=== PATIENT | male | born 1955 | race Caucasian/White ===

== ENCOUNTER 2019-06-11 12:59 | Day surgery (SDC) | payer OTHER, SELFPAY ==
--- NOTE | 2019-06-11 | PATH_ITS ---
[facility] Accession Number: [id number] . 01 Material submitted: . PART A: colon - TRANSVERSE COLON POLYP PART B: rectum - RECTAL POLYPS X5 . 02 Diagnosis: A. Transverse Colon, Polyp: Tubular adenoma. . B. Rectum, Polyps: Fragments of hyperplastic polyp (five polyps removed). V 06/12/2019 1232 Local . 02 Electronically signed: . Moose Nunez MD, PhD, Pathologist NPI- [id number] . 01 Gross description: . Part A: TRANSVERSE COLON POLYP: Received in formalin is 1 fragment(s) of angel, soft tissue measuring 0.3 x 0.3 x 0.3 cm submitted entirely in 1 cassette(s) Part B: RECTAL POLYPS X5: Received in formalin are multiple fragment(s) of angel, soft tissue measuring 0.1 x 0.1 x 0.1 cm to 0.3 x 0.2 x 0.2 cm submitted entirely in 1 cassette(s) /[facility] 06/11/2019 2314 Local . 02 Pathologist provided ICD-10: D12.3, K62.1 . 02 CPT . 242873, [id number] Performed at: 01 [facility] [address] [facility], [place], [place] [id number] MD Lopez Briggs MD Phone: [phone] Performed at: 02 [facility] [address] [place], [place] [id number] MD Cecile Jha MD Phone: [phone]
--- NOTE | 2019-06-11 13:08 | PM.HP.1 ---
History of Present Illness History of Present Illness Date Patient Seen: 06/11/19 Chief complaint: [id number] Narrative: Follow-up sigmoid colon polyps Exam Narrative Exam Narrative: Oropharynx free of lesions Chest clear to auscultation percussion Cardiac exam reveals no S3 or murmur Assessment & Plan Assessment & Plan narrative: History of adenomatous colon polyps need for follow-up colonoscopy. Risks, benefits, alternatives have been explained.
--- NOTE | 2019-06-11 13:09 | PM.OP.ENDO ---
Operative Date/Time/Diagnoses Date of procedure: 06/11/19 Pre-op diagnosis: See indication and findings Procedure & Clinicians Study performed: Colonoscopy Same procedure as scheduled: Yes Indications: History of polyps Surgeon: Jeevan Maldonado Procedure Notes Procedure in detail: After informed consent was obtained the patient was placed in left lateral decubitus position. Video colonoscope was introduced the rectum and slowly advanced cecum. On slow withdrawal mucosa was carefully examined. Preparation was good. The scope was removed. The patient tolerated procedure well. Blood loss none Complications none Sedation Total sedation time 23 minutes Versed 7 mg fentanyl 150 micro g IV titration Findings 1. Five diminutive polyps in the rectum all Jumbo biopsy removed completely 2. Somewhat umbilicated 6-7 mm polyp in the transverse colon cold snared and removed completely 3. Scattered diverticulosis 4. Otherwise negative colonoscopy to cecum We'll be in touch regarding his pathology but will most likely need follow-up the in 5 years.
[2019-06-11 13:24] VITALS: PULSE 129; RESP 16; TEMP 37.3; O2SAT 98; BMI 23.6
[2019-06-11] MEDS: SODIUM CHLORIDE 0.9% 1,000 ML 21 ML IV (13:52)
[2019-06-11] MEDS: fentaNYL 250 MCG/5 ML INJ IV (14:23)
[2019-06-11] MEDS: MIDAZOLAM 5 MG/5 ML VIAL IV (14:23)
--- NOTE | 2019-06-11 14:36 | SUR.OPER ---
GLASSES IN LABELED BAG TO PACU WITH PATIENT
[2019-06-11 14:57] VITALS: BP 115/78; PULSE 76; RESP 13; TEMP 36.6; O2SAT 96
[2019-06-11 15:02] VITALS: BP 114/76; PULSE 75; RESP 12; O2SAT 97
[2019-06-11 15:07] VITALS: BP 110/71; PULSE 71; RESP 19; O2SAT 98
[2019-06-11 15:22] VITALS: BP 112/70; PULSE 70; RESP 16; O2SAT 99
[2019-06-11 15:34] VITALS: BP 119/75; PULSE 72; RESP 14; TEMP 36.9; O2SAT 98
--- NOTE | 2019-06-11 16:00 | SUR.PHASEII ---
1550 Patient voided in a bathroom after leaving the department, then asked for a work-release note; obtained from Dr. Maldonado.
== END 2019-06-11 15:58 | disposition home or self-care (01) ==
PROVIDERS: Visit Provider Internal Medicine Gastroenterology
PROC: 0DJD8ZZ Inspection of Lower Intestinal Tract, Via Natural or Artificial Opening Endoscopic (ICD-10-PCS; CPT 45378; principal; 2019-06-11 14:30)
DX: Z12.11 Encounter for screening for malignant neoplasm of colon (principal); Z86.010 Personal history of colon polyps; D12.3 Benign neoplasm of transverse colon; K62.1 Rectal polyp; K57.30 Diverticulosis of large intestine without perforation or abscess without bleeding
CPT/HCPCS: 45385; 45380; J2250; J3010

== ENCOUNTER 2020-09-08 08:07 | Emergency (ER) | payer OTHER, SELFPAY ==
[2020-09-08] VITALS (8 sets, daily range): BP systolic 127–168; BP diastolic 71–86; PULSE 56–68; RESP 17; TEMP 36.8; O2SAT 94–100; BMI 25.3
--- NOTE | 2020-09-08 08:37 | ED.NAVMDI ---
HPI - Nausea/Vomiting/Diarrhea General Chief complaint: Upper Respiratory Symptoms Stated complaint: J&J vaccine 08/25/20. Nausea/phlem/stomach distended Time Seen by Provider: 09/08/20 08:24 Source: patient Mode of arrival: Ambulatory History of Present Illness HPI Narrative: Patient here for nausea and vomiting and abdominal discomfort for the past 12 days. Had Jony Jony COVID vaccine on the 7th. Next day had symptoms. No chest pain. No headache. Had dry cough. Chills no fever. Nonbloody emesis. Decreased bowel movements. Decreased urine output. No appetite. MD complaint: nausea, vomiting and abdominal pain Related Data Previous Rx's Medication Instructions Recorded ondansetron 4 mg PO Q8H PRN #10 tab 09/08/20 Allergies Allergy/AdvReac Type Severity Reaction Status Date / Time amoxicillin AdvReac Mild Verified 09/09/20 15:56 Opioids - Morphine Analogues AdvReac Mild Vomiting Verified 09/09/20 15:56 narcoticss AdvReac Mild Vomiting Uncoded 06/11/19 13:35 Review of Systems Review of Systems Narrative: GENERAL: Denies chills, fatigue, malaise, fever, sweats. HEENT: Denies sinus pain, ear pain, sore throat RESPIRATORY: Denies dyspnea, cough CARDIOVASCULAR: Denies chest pain, palpitations GASTROINTESTINAL: Complain nausea, vomiting, abdominal pain : Denies dysuria, frequency, hematuria, complains decreased urination MUSCULOSKELETAL: denies muscle or bony pain SKIN: Denies rash, skin lesions NEUROLOGIC: Denies weakness, numbness ROS Unobtainable: All systems reviewed & are unremarkable except as noted in HPI and below Patient History Social History household members: spouse Smoking Status: Current every day smoker alcohol intake: current Smoking Status: Current every day smoker alcohol intake frequency: holidays/special occasions only Substance Use Type: does not use Exam Narrative Exam Narrative: GENERAL: in no distress, not toxic not dyspneic HEAD: Normocephalic. EYES: Pupils equal round No scleral icterus. No injection no discharge ENT: Mucous membranes moist. Slightly dry lips NECK: Trachea midline. CARDIOVASCULAR: Regular rate and rhythm without murmurs RESPIRATORY: Clear to auscultation. Breath sounds equal bilaterally. No wheezes, rales, or rhonchi. GASTROINTESTINAL: Abdomen soft, non-tender EXTREMITIES: No gross deformities. BACK: No flank tenderness. NEURO: AOx4. SKIN: Warm and dry PSYCH: Not anxious, is cooperative Initial Vital Signs Initial Vital Signs: Vital Signs Pulse Rate 67 09/08/20 08:19 Pulse Oximetry 100 09/08/20 08:19 Course Course Course Narrative: No new issues during course of stay. Orders Ordered: Discontinued Medications Sodium Chloride (Normal Saline 0.9%) 1,000 mls @ 1,000 mls/hr IV BOLUS ONE Stop: 09/08/20 09:34 Last Infusion: 09/08/20 09:56 Dose: 0 mls/hr Documented by: Admin: 09/08/20 08:52 Dose: 1,000 mls/hr Documented by: CAS Reevaluation(s) Reevaluation #1: No nausea vomiting or abdominal pain. Patient able to urinate here. Symptoms improved. Patient and agree with treatment plan and review of results. Time: 10:48 Vital Signs Vital signs: Vital Signs - 8 hr 09/08/20 08:19 09/08/20 08:20 09/08/20 08:30 Temperature 98.3 F Pulse Rate 67 66 68 Respiratory Rate 17 Blood Pressure 168/86 H Pulse Oximetry 100 100 100 09/08/20 09:00 09/08/20 09:30 09/08/20 10:01 Temperature Pulse Rate 64 65 67 Respiratory Rate 17 Blood Pressure 148/77 H Pulse Oximetry 100 100 97 09/08/20 10:02 09/08/20 10:30 Temperature Pulse Rate 60 56 L Respiratory Rate Blood Pressure 149/71 H 127/74 Pulse Oximetry 94 98 MDM - Nausea/Vomiting/Diarrhea Differential Diagnosis Differential diagnosis: Likely gastroenteritis, dehydration and other (Bowel obstruction/colitis/gastritis) Lab Data Attestation: I reviewed the patient's lab results. Result diagrams: 09/08/20 08:30 09/08/20 08:30 Labs: Lab Results 09/08/20 09/08/20 09/08/20 Range/Units 08:30 08:30 08:30 WBC 11.9 H (4.5-11.0) X10^3/uL RBC 4.95 (4.5-5.9) X10^6/uL Hgb 15.4 (13.5-17.5) g/dL Hct 45.0 (41-53) % MCV 91.0 (80-100) fL MCH 31.2 (26-34) PG MCHC 34.2 (30-36) % RDW 14.1 (11.6-14.8) % Plt Count 202 (150-400) X10^3/uL Neut % (Auto) 73.0 (50-75) % Lymph % (Auto) 16.9 L (25-40) % [place] % (Auto) 7.6 (3-14) % Eos % (Auto) 1.6 L (2-4) % Baso % (Auto) 0.9 (0-2) % Neut # (Auto) 8700 H (6220-8404) /uL Lymph # (Auto) 2000 (9914-8022) /uL [place] # (Auto) 900 (0-900) /uL Eos # (Auto) 200 (0-450) /uL Baso # (Auto) 100 (0-100) /uL Sodium 138 (137-145) mmol/L Potassium 3.9 (3.4-5.1) mmol/L Chloride 104 (98-107) mmol/L Carbon Dioxide 29 (22-32) mmol/L BUN 13 (9-20) mg/dL Creatinine 0.74 (0.66-1.25) mg/dL Estimated GFR > 60.0 (>60) mL/min BUN/Creatinine Ratio 17.6 (6-22) Glucose 92 (80-110) mg/dL Calcium 9.2 (8.4-10.2) mg/dL Total Bilirubin 0.6 (0.2-1.3) mg/dL AST 28 (17-59) IU/L ALT 22 (<50) IU/L Alkaline Phosphatase 103 (38-126) U/L Total Creatine Kinase 44 L (55-170) U/L CK-MB (CK-2) TNP CK-MB (CK-2) Rel Index TNP Troponin I < 0.012 (0.01-0.034) ng/mL Total Protein 6.8 (6.3-8.2) g/dL Albumin 3.6 (3.5-5.0) g/dL Globulin 3.2 (1.7-4.1) g/dL Albumin/Globulin Ratio 1.1 (1.0-2.8) Lipase 39 (23-300) U/L Urine RBC (0-5/HPF) Urine WBC (0-5/HPF) Urine Bacteria (None) Ur Culture Indicated? SARS-CoV-2 (PCR) (Negative) 09/08/20 09/08/20 Range/Units 09:01 10:00 WBC (4.5-11.0) X10^3/uL RBC (4.5-5.9) X10^6/uL Hgb (13.5-17.5) g/dL Hct (41-53) % MCV (80-100) fL MCH (26-34) PG MCHC (30-36) % RDW (11.6-14.8) % Plt Count (150-400) X10^3/uL Neut % (Auto) (50-75) % Lymph % (Auto) (25-40) % [place] % (Auto) (3-14) % Eos % (Auto) (2-4) % Baso % (Auto) (0-2) % Neut # (Auto) (4851-5503) /uL Lymph # (Auto) (7721-4464) /uL [place] # (Auto) (0-900) /uL Eos # (Auto) (0-450) /uL Baso # (Auto) (0-100) /uL Sodium (137-145) mmol/L Potassium (3.4-5.1) mmol/L Chloride (98-107) mmol/L Carbon Dioxide (22-32) mmol/L BUN (9-20) mg/dL Creatinine (0.66-1.25) mg/dL Estimated GFR (>60) mL/min BUN/Creatinine Ratio (6-22) Glucose (80-110) mg/dL Calcium (8.4-10.2) mg/dL Total Bilirubin (0.2-1.3) mg/dL AST (17-59) IU/L ALT (<50) IU/L Alkaline Phosphatase (38-126) U/L Total Creatine Kinase (55-170) U/L CK-MB (CK-2) CK-MB (CK-2) Rel Index Troponin I (0.01-0.034) ng/mL Total Protein (6.3-8.2) g/dL Albumin (3.5-5.0) g/dL Globulin (1.7-4.1) g/dL Albumin/Globulin Ratio (1.0-2.8) Lipase (23-300) U/L Urine RBC None seen (0-5/HPF) Urine WBC 1-5/hpf (0-5/HPF) Urine Bacteria Few (2-10) H (None) Ur Culture Indicated? Specimen cultured SARS-CoV-2 (PCR) Negative (Negative) Urine Dip Bedside Urine Glucose Negative Bedside Urine Bilirubin - Negative Bedside Urine Ketone - Negative Urine Specific [place] 1.01 Bedside Urine Occult Blood - Negative Bedside Urine pH 8.0 Bedside Urine Protein - Negative Bedside Urine Urobilinogen - Negative Bedside Urine Nitrite - Negative Bedside Urine Leukocytes + [address] scan - abdomen/pelvis: Radiologist's Impression: [address] [place] [address] [id number] Scan ReportSigned Patient: Shay Ayala DMR#: [id number]: 8Acct:[id number]/Sex: 64 / MDate of Service: 09/08/20Loc: EDAccession Number: [id number] Procedure: CT abdomen pelvis w con Ordering Provider: Naveen Johnson MD PROCEDURE: CT ABDOMEN PELVIS W CON INDICATIONS: iv contrast only/abd pain TECHNIQUE: After the administration of intravenous contrast, 5 mm thick sections acquired from the diaphragm to the symphysis. 5 mm coronal and sagittal reformats were acquired. For radiation dose reduction, the following was used: automated exposure control, adjustment of mA and/or kV according to patient size. COMPARISON: None. FINDINGS: Image quality: Excellent. ABDOMEN: Lung bases: Lung bases are clear. Heart size is normal. Solid organs: Liver is normal in size and enhancement. Gallbladder is surgically absent. Biliary system is non dilated. Pancreas enhances normally. Spleen is normal in size and enhancement. No adrenal nodules. Kidneys demonstrate normal size and enhancement, without hydronephrosis. Peritoneum and bowel: Bowel loops demonstrate normal wall thickness and caliber. No free fluid or air. Nodes and vessels: No retroperitoneal or mesenteric adenopathy by size criteria. Aorta and inferior vena cava are normal in size. Incidental note is made of a retroaortic left renal vein. Mild aortic and bilateral iliac plaque. Miscellaneous: No ventral hernias. PELVIS: Genitourinary: Bladder wall is mildly thickened. Significant prostate enlargement. There is a large bilobed mass resulting in significant indentation on the base of the bladder. This can either represent extrinsic compression by the prostate, or an intrinsic base of bladder mass. Miscellaneous: Bilateral fat containing inguinal hernias. Bones: No suspicious bony lesions. No vertebral body compression fractures. IMPRESSION: 1. No evidence of acute abdominal process. 2. Enlarged prostate. 3. Large filling defect in the base of the bladder, possibly extrinsic compression from the prostate versus intrinsic bladder mass. Recommend nonemergent urological consultation. Dictated by: Cuco Danielle M.D. on 09/08/2020 at 9:52 Approved by: Cuco Danielle M.D. on 09/08/2020 at 9:59 ECG Data Attestation: I personally reviewed and interpreted this ECG as follows: Interpretation: Sinus rhythm. Rate 62. No ST elevation or depression. MDM Narrative Medical decision making narrative: Appropriate discharge home. Symptoms controlled here. No pain. No vomiting. Symptoms ongoing for 13 days. Could be side effect from COVID vaccine. Reviewed results with patient and and agree with discharge and follow-up with urology and primary care. Prescription for Zofran provided. Not toxic. Patient is a smoker. He has had cystoscopy of the bladder in the past, 2 years ago. He does not recall where. Will provide urology services for follow-up. Discharge Plan Departure Patient Disposition: Home Clinical Impression: Nausea & vomiting Abdominal pain Qualifiers: Abdominal location: unspecified location Qualified Code(s): R10.9 - Unspecified abdominal pain Instructions: DI for Abdominal Pain-Adult, DI for Nausea -- Adult Activity Restrictions/Additional Instructions: See family doctor this week for recheck. See your urologist or call provided urology office today at [phone]. Stop smoking. Keep well hydrated. Return if worse or for any questions or concerns. Prescriptions have been sent to [facility] in [place]. Prescriptions: New ondansetron 4 mg tablet,disintegrating 4 mg PO Q8H PRN (Reason: nausea and vomiting) Qty: 10 RF: 0 Referrals: Cecile Beach MD [Primary Care Provider] - Stand Alone Forms: Work Release Note
[2020-09-08 08:41] LABS: Add Manual Diff / Slide Review NO; Basophils Absolute Auto 100 /uL (0-100); Basophils Percent Auto 0.9 % (0-2); Eosinophils Absolute Auto 200 /uL (0-450); Eosinophils Percent Auto 1.6 % (2-4); Hemoglobin 15.4 g/dL (13.5-17.5); Lymphocytes Absolute Auto 2000 /uL (1100-4500); Lymphocytes Percent Auto 16.9 % (25-40); Mean Corpuscular HGB Conc 34.2 % (30-36); Mean Corpuscular Hemoglobin 31.2 PG (26-34); Monocytes Absolute Auto 900 /uL (0-900); Monocytes Percent Auto 7.6 % (3-14); Neutrophils Absolute Auto 8700 /uL (1500-7000); Platelet Count 202 X10^3/uL (150-400); Red Blood Cell Count 4.95 X10^6/uL (4.5-5.9); Red Cell Distribution Width 14.1 % (11.6-14.8); White Blood Cell Count 11.9 X10^3/uL (4.5-11.0)
[2020-09-08] MEDS: SODIUM CHLORIDE 0.9% 1,000 ML 1000 ML IV (08:52)
[2020-09-08 08:53] LABS: Alanine Aminotransferase 22 IU/L (<50); Albumin 3.6 g/dL (3.5-5.0); Albumin Globulin Ratio 1.1 (1.0-2.8); Alkaline Phosphatase 103 U/L (38-126); Aspartate Aminotransferase 28 IU/L (17-59); BUN Creatinine Ratio 17.6 (6-22); Bilirubin Total 0.6 mg/dL (0.2-1.3); Blood Urea Nitrogen 13 mg/dL (9-20); Calcium 9.2 mg/dL (8.4-10.2); Carbon Dioxide 29 mmol/L (22-32); Chloride 104 mmol/L (98-107); Creatine Kinase 44 U/L (55-170); Estimated Glomerular Filt Rate > 60.0 mL/min (>60); Globulin 3.2 g/dL (1.7-4.1); Glucose 92 mg/dL (80-110); HEMOLYSIS 16 (0-50); Lipase 39 U/L (23-300); Potassium 3.9 mmol/L (3.4-5.1); Sodium 138 mmol/L (137-145); Total Protein 6.8 g/dL (6.3-8.2)
[2020-09-08 09:05] LABS: Troponin I < 0.012 ng/mL (0.01-0.034)
--- NOTE | 2020-09-08 09:05 | DI.CT.S_ITS ---
PROCEDURE: CT ABDOMEN PELVIS W CON INDICATIONS: iv contrast only/abd pain TECHNIQUE: After the administration of intravenous contrast, 5 mm thick sections acquired from the diaphragm to the symphysis. 5 mm coronal and sagittal reformats were acquired. For radiation dose reduction, the following was used: automated exposure control, adjustment of mA and/or kV according to patient size. COMPARISON: None. FINDINGS: Image quality: Excellent. ABDOMEN: Lung bases: Lung bases are clear. Heart size is normal. Solid organs: Liver is normal in size and enhancement. Gallbladder is surgically absent. Biliary system is non dilated. Pancreas enhances normally. Spleen is normal in size and enhancement. No adrenal nodules. Kidneys demonstrate normal size and enhancement, without hydronephrosis. Peritoneum and bowel: Bowel loops demonstrate normal wall thickness and caliber. No free fluid or air. Nodes and vessels: No retroperitoneal or mesenteric adenopathy by size criteria. Aorta and inferior vena cava are normal in size. Incidental note is made of a retroaortic left renal vein. Mild aortic and bilateral iliac plaque. Miscellaneous: No ventral hernias. PELVIS: Genitourinary: Bladder wall is mildly thickened. Significant prostate enlargement. There is a large bilobed mass resulting in significant indentation on the base of the bladder. This can either represent extrinsic compression by the prostate, or an intrinsic base of bladder mass. Miscellaneous: Bilateral fat containing inguinal hernias. Bones: No suspicious bony lesions. No vertebral body compression fractures. IMPRESSION: 1. No evidence of acute abdominal process. 2. Enlarged prostate. 3. Large filling defect in the base of the bladder, possibly extrinsic compression from the prostate versus intrinsic bladder mass. Recommend nonemergent urological consultation. Dictated by: Cuco Danielle M.D. on 09/08/2020 at 9:52 Approved by: Cuco Danielle M.D. on 09/08/2020 at 9:59
[2020-09-08 09:26] LABS: COVID19 - ADMIT (NP swab/PCR) Negative (Negative)
[2020-09-08 10:11] LABS: RBC Urine None Seen (0-5/HPF)
[2020-09-08 10:22] LABS: Bacteria Urine Few (2-10); Culture Indicated Urine Specimen Cultured; WBC Urine 1-5/HPF (0-5/HPF)
== END 2020-09-08 11:11 | disposition home or self-care (01) ==
PROVIDERS: Emergency Provider Emergency Medicine
DX: R10.9 Unspecified abdominal pain (principal); R11.2 Nausea with vomiting, unspecified; Z20.822 Contact with and (suspected) exposure to COVID-19
CPT/HCPCS: 36415; 74177; 80053; 81003; 81015; 82550; 83690; 84484; 85025; 87086; 87635; 93005; 93010; 96360; 99284; C9803; Q9967

== ENCOUNTER 2020-09-09 15:32 | Emergency (ER) | payer OTHER, SELFPAY ==
[2020-09-09 15:50] VITALS: BP 125/73; PULSE 86; RESP 14; TEMP 36.8; O2SAT 98; BMI 25.3
--- NOTE | 2020-09-09 17:51 | ED.RECABL ---
HPI - Recheck/Abnormal Lab/Rx General Chief Complaint: Recheck/Abnormal Lab/Rx Stated Complaint: nausea and vomiting, thinks its the meds Time Seen by Provider: 09/09/20 16:15 Source: patient Mode of arrival: Ambulatory Limitations: no limitations History of Present Illness HPI narrative: This is a 64-year-old male comes emergency department with nausea and vomiting status pose Jony and Jony COVID vaccine. Patient was seen yesterday by Dr. Johnson. Patient did have a evaluation including labs, CT imaging and was given fluids in the department. Patient also has had intractable hiccups. Patient has a prior history of intractable hiccups which lasted much longer. He states he was ultimately improved with over count of the medication which was recommended by his physician but he cannot recall what it was. He has not had any fevers or chills. Still has nausea he has had some vomiting. He has not taken any Zofran which was prescribed by the emergency room physician yesterday since this morning. Patient has not started any of the Protonix that he was prescribed. Patient states his symptoms are not worsening but have not resolved. He denies any new or evolving symptoms. Patient denies any other regular medications. He denies any medical issues. Discussed with patient he defers any additional labs or imaging or fluids today but we did discuss he should return if he is having any worsening symptoms. He is also accompanied by his . Related Data Previous Rx's Medication Instructions Recorded ondansetron 4 mg PO Q8H PRN #10 tab 09/08/20 Allergies Allergy/AdvReac Type Severity Reaction Status Date / Time amoxicillin AdvReac Mild Verified 09/09/20 15:56 Opioids - Morphine Analogues AdvReac Mild Vomiting Verified 09/09/20 15:56 narcoticss AdvReac Mild Vomiting Uncoded 06/11/19 13:35 Review of Systems Review of Systems ROS Unobtainable: All systems reviewed & are unremarkable except as noted in HPI and below Patient History Social History household members: spouse Smoking Status: Current every day smoker alcohol intake: current Smoking Status: Current every day smoker alcohol intake frequency: holidays/special occasions only Substance Use Type: does not use Exam Narrative Exam Narrative: GENERAL: Alert and oriented x three, well-nourished male in mild distress. HEENT: Head normocephalic, atraumatic, EOMI, pupils reactive, face symmetric, moist mucous membranes NECK: Supple, full range of motion CARDIOVASCULAR: Regular rate and rhythm without murmurs, rubs or gallops. RESPIRATORY: Breath sounds equal bilaterally, no wheezes rales or rhonchi. ABDOMEN: Soft, nontender. Normoactive bowel sounds all 4 quadrants. No guarding or rebound, rigidity, no mass. Patient has active hiccups while in the room throughout exam. : No CVA tenderness EXTREMITIES: Normal range of motion, no clubbing or edema. Neurovascularly intact NEUROLOGICAL: Cranial nerves II through XII grossly intact. Moving all extremities SKIN: Warm, dry, no petechiae, no rashes or lesions. Initial Vital Signs Initial Vital Signs: Vital Signs Temperature 98.3 F 09/09/20 15:50 Pulse Rate 86 09/09/20 15:50 Respiratory Rate 14 09/09/20 15:50 Blood Pressure 125/73 09/09/20 15:50 Pulse Oximetry 98 09/09/20 15:50 Course Vital Signs Vital signs: Vital Signs - 8 hr 09/09/20 15:50 09/09/20 18:14 Temperature 98.3 F Pulse Rate 86 70 Respiratory Rate 14 14 Blood Pressure 125/73 139/78 Pulse Oximetry 98 98 MDM - Recheck/Abnormal Lab/Rx MDM Narrative Medical decision making narrative: Patient states he just had some questions about his medications. He did not have an additional option to call or ask questions with a different provider. Questions were answered entirety with the patient. We did discuss possibly repeating labs her lab work as patient feels like he has continued to have issues hydrating but he defers and will try his medications that were prescribed yesterday. He states he has had intractable had cups in the past which ultimately resolved after some oral medications [id number] but he does recall the name. We discussed some possible options and patient was encouraged to return if he is feeling any worse. Discharge Plan Departure Patient Disposition: Home Clinical Impression: Nausea & vomiting Instructions: DI for Hiccups Activity Restrictions/Additional Instructions: Follow up with your physician if you are not having any improvement. If you are continuing to worsening please return to the ER. You may take Zofran 1 tablet every 6 hours as needed. Also take your Protonix which was prescribed yesterday. Please return for fevers, worsening chest pain, abdominal pain, shortness of breath, persistent vomiting, inability to tolerate oral liquids or food black or bloody stools new or concerning symptoms. Prescriptions: No Action ondansetron 4 mg tablet,disintegrating 4 mg PO Q8H PRN (Reason: nausea and vomiting) Qty: 10 RF: 0 Referrals: Cecile Beach MD [Primary Care Provider] -
[2020-09-09 18:14] VITALS: BP 139/78; PULSE 70; RESP 14; O2SAT 98
== END 2020-09-09 18:16 | disposition home or self-care (01) ==
PROVIDERS: Emergency Provider Emergency Medicine
DX: R11.2 Nausea with vomiting, unspecified (principal)
CPT/HCPCS: 99281

== ENCOUNTER 2020-09-10 18:49 | Observation (INO) | payer OTHER, SELFPAY ==
[2020-09-10] VITALS (13 sets, daily range): BP systolic 126–169; BP diastolic 65–112; PULSE 68–86; RESP 12–30; TEMP 37.1; O2SAT 93–99; BMI 25.3
--- NOTE | 2020-09-10 19:44 | DI.RAD.S_ITS ---
PROCEDURE: XR ACUTE ABDOMEN SERIES INDICATIONS: chest pain, N/V, no BM TECHNIQUE: One view chest and two views of the abdomen were acquired. COMPARISON: None. FINDINGS: Surgical changes and devices: Right upper quadrant surgical clips. Chest: Lungs are clear. Heart size is normal. No pleural effusions. No pneumoperitoneum. Abdomen: Moderate stool Bones: No suspicious bony lesions. IMPRESSION: No specific evidence of bowel obstruction seen at this time although if the patient's symptoms do not improve, continued surveillance with abdominal series radiographs could be performed. Moderate stool. Dictated by: Ata Gonzalez M.D. on 09/10/2020 at 21:15 Approved by: Ata Gonzalez M.D. on 09/10/2020 at 21:16
--- NOTE | 2020-09-10 19:44 | ED_ITS ---
HPI - Abdominal Pain General Chief Complaint: Abdominal Pain Stated Complaint: chest pains, vomiting, nausea, feels weak Time Seen by Provider: 09/10/20 18:58 Source: patient and family Mode of arrival: Ambulatory Limitations: no limitations History of Present Illness HPI narrative: 64-year-old male Daily smoker presents with significant other and a chief complaint of epigastric pain and persistent nausea and vomiting along with hiccups for past few weeks. This is his 3rd visit and he continues to not only be symptomatic but actually feel worse. He is had very thorough evaluations including unremarkable labs and imaging including a CT scan. He states that his symptoms have been like this ever since his COVID shot on August 25. He denies any recent travel, exposure bad foods, other ill persons or antibiotics. He is fatigued in becoming a bit weak. He has had no fever or chills. He denies any alcohol history. MD complaint: abdominal pain Onset (ago): day(s) Pain Consistency: constant Location: epigastric Severity: moderate Quality: cramping and aching Radiation: none Relieving factors: nothing Exacerbating factors: nothing Associated symptoms: nausea, vomiting and other (No bowel movement in 2 weeks, decreased appetite) Related Data Previous Rx's Medication Instructions Recorded ondansetron 4 mg PO Q8H PRN #10 tab 09/08/20 Allergies Allergy/AdvReac Type Severity Reaction Status Date / Time amoxicillin AdvReac Mild Verified 09/10/20 19:02 Opioids - Morphine Analogues AdvReac Mild Vomiting Verified 09/10/20 19:02 narcoticss AdvReac Mild Vomiting Uncoded 09/10/20 19:02 Review of Systems Constitutional Constitutional: Denies chills, Reports fatigue, Denies fever(s), Denies frequent falls, Denies lethargy and Reports weakness Eyes Eyes: Denies change in vision, Denies eye discharge, Denies irritation and Denies loss of vision ENT Ears, Nose, Mouth, and Throat: Denies change in voice, Denies dizziness, Denies neck pain, Denies sore throat and Denies throat swelling Cardiovascular Cardiovascular: Denies chest pain, Denies irregular heart rhythm, Denies lightheadedness, Denies palpitations, Denies dyspnea, Denies dyspnea on exertion and Denies orthopnea Respiratory Respiratory: Denies cough, Denies dyspnea, Denies dyspnea on exertion and Denies wheezing Gastrointestinal Gastrointestinal: Reports abdominal pain, Denies change in bowel habits, Denies diarrhea, Reports nausea and Reports vomiting Musculoskeletal Musculoskeletal: Denies neck pain and Denies numbness Integumentary/Breasts Skin/Breast: Denies pruritus, Denies erythema, Denies rash and Denies wounds Neurologic Neurologic: Denies behavioral changes, Denies confusion, Denies dizziness, Denies frequent falls, Denies loss of vision, Denies numbness and Reports weakness Psychiatric Psychiatric: Denies anxiety, Denies behavioral changes, Denies confusion, Denies depression, Denies homicidal ideation and Denies suicidal ideation Endocrine Endocrine: Reports fatigue, Denies flushing and Denies palpitations Hematologic/Lymphatic Hematologic/Lymphatic: Denies easy bruising Allergic/Immunologic Allergic/Immunologic: Denies urticaria, Denies throat swelling and Denies wheezing Patient History Surgical History History of laparoscopic cholecystectomy Family History Mother Stroke Social History household members: spouse Smoking Status: Current every day smoker alcohol intake: current Smoking Status: Current every day smoker alcohol intake frequency: holidays/special occasions only Substance Use Type: does not use Exam Narrative Exam Narrative: GENERAL: [64] year old patient appears stated age. Well- nourished, well-developed patient, in mild distress. Obviously uncomfortable, holding an emesis bag. Frequent hiccups HEAD: Atraumatic. Normocephalic. EYES: Pupils equal round and reactive. Extraocular motions intact. No scleral icterus. No injection or drainage. ENT: Nose without bleeding, purulent drainage. Throat without erythema, tons illar hypertrophy or exudate. Airway patent. NECK: Trachea midline. Non tender CARDIOVASCULAR: Regular rate and rhythm without murmurs, gallops, or rubs. RESPIRATORY: Clear to auscultation. Breath sounds equal bilaterally. No wheezes, rales, or rhonchi. GASTROINTESTINAL: Abdomen soft, tender in the epigastric, nondistended. EXTREMITIES: No edema or joint tenderness. BACK: Nontender without deformity or crepitance. No flank tenderness. NEURO: AOx3. SKIN: No rash or erythema of visible areas Initial Vital Signs Initial Vital Signs: Vital Signs Temperature 98.8 F 09/10/20 19:00 Pulse Rate 78 09/10/20 19:00 Respiratory Rate 18 09/10/20 19:00 Blood Pressure 150/77 H 09/10/20 19:00 Pulse Oximetry 99 09/10/20 19:00 Course Course Course Narrative: Called to see patient after producing about 100 cc of coffee- ground emesis. Patient has never had a GI bleed, and denies any blood or coffee-ground appearance to his emesis prior to this event. At this point a 2nd IV is placed, Protonix is ordered. Imaging reviewed and there is no evidence of cirrhosis recent CT scan, ultrasound is pending for today. Given the patient's intractable vomiting and now GI bleeding patient will require hospitalization for further stabilization and characterization. He has been seen and evaluated by General surgery at the bedside who feel comfortable providing back up with consultation of this patient. Orders Ordered: ED Orders 09/10/20 19:44 XR acute abdomen series Stat 09/10/20 20:00 Urinalysis and Microscopic Stat Urine Culture Stat 09/10/20 20:10 Complete Blood Count AUTO DIFF Stat Comprehensive Metabolic Panel Stat D Dimer Stat Lipase Stat Magnesium Stat Partial Thromboplastin Time Stat Phosphorous Urgent Prothrombin Time INR Stat Troponin & CK Cardiac Panel Stat 09/10/20 20:14 US abdomen limited Stat 09/10/20 20:50 Type and Screen Stat 09/10/20 20:55 COVID19 - ADMIT ([employer] swab/PCR) Stat 09/10/20 22:25 Consult to General Surgery Routine 09/10/20 22:26 Education, smoking cessation ONGOING 09/11/20 00:00 Complete Blood Count AUTO DIFF Routine Comprehensive Metabolic Panel Routine 09/11/20 05:00 Lipid Panel Routine Prothrombin Time INR DAILY 09/12/20 05:00 Prothrombin Time INR DAILY 09/13/20 05:00 Prothrombin Time INR DAILY Lactated Ringer's (Lactated Ringers) 1,000 mls @ 100 mls/hr IV CONT MARYELLEN Ketorolac Tromethamine (Ketorolac 30 Mg/Ml Vial) 30 mg IV Q6HR PRN PRN Reason: Pain, Severe (7-10) Stop: 09/15/20 22:28 Naloxone HCl (Naloxone 0.4 Mg/Ml Vial) 0.2 mg IV Q2MIN PRN PRN Reason: Opiate Reversal Ondansetron HCl (Ondansetron 4 Mg/2 Ml Inj) 4 mg IV Q4HR PRN PRN Reason: Nausea And Vomiting Last Admin: 09/10/20 20:23 Dose: 4 mg Documented by: LETICIA Pantoprazole Sodium (Pantoprazole 40 Mg Vial) 40 mg IV NOW MARYELLEN Discontinued Medications Sodium Chloride (Normal Saline 0.9%) 500 mls @ 1,000 mls/hr IV BOLUS ONE Stop: 09/10/20 20:13 Last Admin: 09/10/20 20:23 Dose: Not Given Documented by: LETICIA Sodium Chloride (Normal Saline 0.9%) 1,000 mls @ 1,000 mls/hr IV BOLUS ONE Stop: 09/10/20 21:24 Last Admin: 09/10/20 20:47 Dose: 1,000 mls/hr Documented by: LETICIA Lorazepam (Lorazepam 2 Mg/Ml Inj) 1 mg IV NOW ONE Stop: 09/10/20 20:58 Last Admin: 09/10/20 21:01 Dose: 1 mg Documented by: LETICIA Metoclopramide HCl (Metoclopramide 10 Mg/2 Ml Inj) 10 mg IV NOW ONE Stop: 09/10/20 22:34 Last Admin: 09/10/20 23:08 Dose: 10 mg Documented by: ENID Pantoprazole Sodium (Pantoprazole 40 Mg Vial) 40 mg IV NOW ONE Stop: 09/10/20 19:45 Last Admin: 09/10/20 20:23 Dose: 40 mg Documented by: LEITCIA Vital Signs Vital signs: Vital Signs - 8 hr 09/10/20 19:00 09/10/20 19:39 09/10/20 20:04 Temperature 98.8 F Pulse Rate 78 68 80 Respiratory Rate 18 17 Blood Pressure 150/77 H 169/81 H Pulse Oximetry 99 93 95 09/10/20 20:05 09/10/20 20:28 09/10/20 20:30 Temperature Pulse Rate 80 86 82 Respiratory Rate 19 12 Blood Pressure 165/87 H 145/112 H 151/77 H Pulse Oximetry 99 98 98 09/10/20 21:00 09/10/20 21:30 09/10/20 21:31 Temperature Pulse Rate 75 73 74 Respiratory Rate 20 22 23 Blood Pressure 169/84 H 132/65 Pulse Oximetry 98 97 97 09/10/20 22:00 09/10/20 22:30 Temperature Pulse Rate 76 77 Respiratory Rate 23 30 H Blood Pressure 126/79 134/75 Pulse Oximetry 97 97 MDM - Abdominal Pain Lab Data Result diagrams: 09/10/20 20:10 09/10/20 20:10 Labs: Lab Results 09/10/20 09/10/20 09/10/20 Range/Units 20:00 20:10 20:10 WBC 16.3 H (4.5-11.0) X10^3/uL RBC 4.93 (4.5-5.9) X10^6/uL Hgb 15.5 (13.5-17.5) g/dL Hct 44.7 (41-53) % MCV 90.6 (80-100) fL MCH 31.4 (26-34) PG MCHC 34.7 (30-36) % RDW 14.0 (11.6-14.8) % Plt Count 207 (150-400) X10^3/uL Neut % (Auto) 79.4 H (50-75) % Lymph % (Auto) 11.7 L (25-40) % Jackson % (Auto) 6.9 (3-14) % Eos % (Auto) 0.9 L (2-4) % Baso % (Auto) 1.1 (0-2) % Neut # (Auto) 42846 H (7809-4965) /uL Lymph # (Auto) 1900 (9853-5488) /uL Jackson # (Auto) 1100 H (0-900) /uL Eos # (Auto) 100 (0-450) /uL Baso # (Auto) 200 H (0-100) /uL PT 12.6 (10.1-12.7) SECONDS INR 1.1 (0.9-1.3) APTT 32 (26.4-36.2) SECONDS D-Dimer (<230) ng/mL Sodium (137-145) mmol/L Potassium (3.4-5.1) mmol/L Chloride (98-107) mmol/L Carbon Dioxide (22-32) mmol/L BUN (9-20) mg/dL Creatinine (0.66-1.25) mg/dL Estimated GFR (>60) mL/min BUN/Creatinine Ratio (6-22) Glucose (80-110) mg/dL Calcium (8.4-10.2) mg/dL Phosphorus (2.3-3.7) mg/dL Magnesium (1.6-2.3) mg/dL Total Bilirubin (0.2-1.3) mg/dL AST (17-59) IU/L ALT (<50) IU/L Alkaline Phosphatase (38-126) U/L Total Creatine Kinase (55-170) U/L CK-MB (CK-2) CK-MB (CK-2) Rel Index Troponin I (0.01-0.034) ng/mL Total Protein (6.3-8.2) g/dL Albumin (3.5-5.0) g/dL Globulin (1.7-4.1) g/dL Albumin/Globulin Ratio (1.0-2.8) Lipase (23-300) U/L Urine Color Yellow Urine Appearance Slightly cloudy Urine pH 7.0 (4.5-8.0) Ur Specific Lapel 1.020 (1.000-1.035) Urine Protein Trace H (Negative) Urine Glucose (UA) Negative (Negative) g/dL Urine Ketones Negative (NEGATIVE) Urine Occult Blood Negative (Negative) Urine Nitrate Negative (Negative) Urine Bilirubin Negative (NEGATIVE) Urine Urobilinogen 1.0 (0.2) E.U./dL Ur Leukocyte Esterase 2+ H (NEGATIVE) Urine RBC None seen (0-5/HPF) Urine WBC 10-30/hpf H (0-5/HPF) Ur Squamous Epith Cells 1-5 /hpf (0-5/HPF) Amorphous Sediment 1+ Urine Bacteria Few (2-10) H (None) Urine Mucus 1+ H (Negative) Ur Culture Indicated? Specimen cultured SARS-CoV-2 (PCR) (Negative) Blood Type Antibody Screen 09/10/20 09/10/20 09/10/20 Range/Units 20:10 20:10 20:10 WBC (4.5-11.0) X10^3/uL RBC (4.5-5.9) X10^6/uL Hgb (13.5-17.5) g/dL Hct (41-53) % MCV (80-100) fL MCH (26-34) PG MCHC (30-36) % RDW (11.6-14.8) % Plt Count (150-400) X10^3/uL Neut % (Auto) (50-75) % Lymph % (Auto) (25-40) % Jackson % (Auto) (3-14) % Eos % (Auto) (2-4) % Baso % (Auto) (0-2) % Neut # (Auto) (0073-2101) /uL Lymph # (Auto) (2112-9135) /uL Jackson # (Auto) (0-900) /uL Eos # (Auto) (0-450) /uL Baso # (Auto) (0-100) /uL PT (10.1-12.7) SECONDS INR (0.9-1.3) APTT (26.4-36.2) SECONDS D-Dimer 601 H (<230) ng/mL Sodium 140 (137-145) mmol/L Potassium 3.5 (3.4-5.1) mmol/L Chloride 103 (98-107) mmol/L Carbon Dioxide 30 (22-32) mmol/L BUN 14 (9-20) mg/dL Creatinine 0.74 (0.66-1.25) mg/dL Estimated GFR > 60.0 (>60) mL/min BUN/Creatinine Ratio 18.9 (6-22) Glucose 107 (80-110) mg/dL Calcium 9.2 (8.4-10.2) mg/dL Phosphorus 3.1 (2.3-3.7) mg/dL Magnesium 2.4 H (1.6-2.3) mg/dL Total Bilirubin 0.3 (0.2-1.3) mg/dL AST 24 (17-59) IU/L ALT 20 (<50) IU/L Alkaline Phosphatase 116 (38-126) U/L Total Creatine Kinase 44 L (55-170) U/L CK-MB (CK-2) TNP CK-MB (CK-2) Rel Index TNP Troponin I < 0.012 (0.01-0.034) ng/mL Total Protein 7.1 (6.3-8.2) g/dL Albumin 3.7 (3.5-5.0) g/dL Globulin 3.4 (1.7-4.1) g/dL Albumin/Globulin Ratio 1.1 (1.0-2.8) Lipase 51 (23-300) U/L Urine Color Urine Appearance Urine pH (4.5-8.0) Ur Specific Lapel (1.000-1.035) Urine Protein (Negative) Urine Glucose (UA) (Negative) g/dL Urine Ketones (NEGATIVE) Urine Occult Blood (Negative) Urine Nitrate (Negative) Urine Bilirubin (NEGATIVE) Urine Urobilinogen (0.2) E.U./dL Ur Leukocyte Esterase (NEGATIVE) Urine RBC (0-5/HPF) Urine WBC (0-5/HPF) Ur Squamous Epith Cells (0-5/HPF) Amorphous Sediment Urine Bacteria (None) Urine Mucus (Negative) Ur Culture Indicated? SARS-CoV-2 (PCR) (Negative) Blood Type Antibody Screen 09/10/20 09/10/20 Range/Units 20:50 20:55 WBC (4.5-11.0) X10^3/uL RBC (4.5-5.9) X10^6/uL Hgb (13.5-17.5) g/dL Hct (41-53) % MCV (80-100) fL MCH (26-34) PG MCHC (30-36) % RDW (11.6-14.8) % Plt Count (150-400) X10^3/uL Neut % (Auto) (50-75) % Lymph % (Auto) (25-40) % Jackson % (Auto) (3-14) % Eos % (Auto) (2-4) % Baso % (Auto) (0-2) % Neut # (Auto) (4362-0369) /uL Lymph # (Auto) (2224-0214) /uL Jackson # (Auto) (0-900) /uL Eos # (Auto) (0-450) /uL Baso # (Auto) (0-100) /uL PT (10.1-12.7) SECONDS INR (0.9-1.3) APTT (26.4-36.2) SECONDS D-Dimer (<230) ng/mL Sodium (137-145) mmol/L Potassium (3.4-5.1) mmol/L Chloride (98-107) mmol/L Carbon Dioxide (22-32) mmol/L BUN (9-20) mg/dL Creatinine (0.66-1.25) mg/dL Estimated GFR (>60) mL/min BUN/Creatinine Ratio (6-22) Glucose (80-110) mg/dL Calcium (8.4-10.2) mg/dL Phosphorus (2.3-3.7) mg/dL Magnesium (1.6-2.3) mg/dL Total Bilirubin (0.2-1.3) mg/dL AST (17-59) IU/L ALT (<50) IU/L Alkaline Phosphatase (38-126) U/L Total Creatine Kinase (55-170) U/L CK-MB (CK-2) CK-MB (CK-2) Rel Index Troponin I (0.01-0.034) ng/mL Total Protein (6.3-8.2) g/dL Albumin (3.5-5.0) g/dL Globulin (1.7-4.1) g/dL Albumin/Globulin Ratio (1.0-2.8) Lipase (23-300) U/L Urine Color Urine Appearance Urine pH (4.5-8.0) Ur Specific Lapel (1.000-1.035) Urine Protein (Negative) Urine Glucose (UA) (Negative) g/dL Urine Ketones (NEGATIVE) Urine Occult Blood (Negative) Urine Nitrate (Negative) Urine Bilirubin (NEGATIVE) Urine Urobilinogen (0.2) E.U./dL Ur Leukocyte Esterase (NEGATIVE) Urine RBC (0-5/HPF) Urine WBC (0-5/HPF) Ur Squamous Epith Cells (0-5/HPF) Amorphous Sediment Urine Bacteria (None) Urine Mucus (Negative) Ur Culture Indicated? SARS-CoV-2 (PCR) Negative (Negative) Blood Type O Negative Antibody Screen Negative Discharge Plan Departure Patient Disposition: Admitted as Observation Clinical Impression: Nausea & vomiting, Abdominal pain, Acute GI bleeding Admit Date/Time: 09/10/20 22:34 Admit Provider: Sabine Spaulding
[2020-09-10 20:03] LABS: RBC Urine None Seen (0-5/HPF)
[2020-09-10 20:13] LABS: Bilirubin Urine UA NEGATIVE (NEGATIVE); Color Urine UA YELLOW; Glucose Urine UA NEGATIVE (Negative); Ketones Urine UA NEGATIVE (NEGATIVE); Leukocyte Esterase Urine UA 2+ (NEGATIVE); Nitrite Urine UA NEGATIVE (Negative); Occult Blood Urine UA NEGATIVE (Negative); Protein Urine UA TRACE (Negative)
--- NOTE | 2020-09-10 20:14 | DI.US.S_ITS ---
PROCEDURE: US ABDOMEN LIMITED INDICATIONS: severe epigastric pain, vomiting TECHNIQUE: Real-time focused scanning was performed of the abdomen, with image documentation. COMPARISON: None. FINDINGS: Liver measures 16.9 cm and is unremarkable. The main portal vein measures 11 mm in is patent. Gallbladder surgically absent. No bile duct dilatation. The pancreas is unremarkable. IMPRESSION: Unremarkable examination as above Dictated by: Ata Gonzalez M.D. on 09/10/2020 at 21:22 Approved by: Ata Gonzalez M.D. on 09/10/2020 at 21:23
[2020-09-10 20:21] LABS: Appearance Urine UA Slightly Cloudy
[2020-09-10] MEDS: PANTOPRAZOLE 40 MG VIAL IV (20:23)
[2020-09-10] MEDS: ONDANSETRON 4 MG/2 ML INJ IV (20:23)
[2020-09-10 20:24] LABS: Add Manual Diff / Slide Review NO; Basophils Absolute Auto 200 /uL (0-100); Basophils Percent Auto 1.1 % (0-2); Eosinophils Absolute Auto 100 /uL (0-450); Eosinophils Percent Auto 0.9 % (2-4); Hematocrit 44.7 % (41-53); Hemoglobin 15.5 g/dL (13.5-17.5); Lymphocytes Absolute Auto 1900 /uL (1100-4500); Lymphocytes Percent Auto 11.7 % (25-40); Mean Corpuscular HGB Conc 34.7 % (30-36); Mean Corpuscular Hemoglobin 31.4 PG (26-34); Mean Corpuscular Volume 90.6 fL (80-100); Monocytes Absolute Auto 1100 /uL (0-900); Monocytes Percent Auto 6.9 % (3-14); Neutrophils Absolute Auto 12900 /uL (1500-7000); Neutrophils Percent Auto 79.4 % (50-75); Platelet Count 207 X10^3/uL (150-400); Red Blood Cell Count 4.93 X10^6/uL (4.5-5.9); White Blood Cell Count 16.3 X10^3/uL (4.5-11.0)
[2020-09-10 20:36] LABS: Amorphous Sediment Urine 1+; Squamous Epithelial Cell Urine 1-5 /HPF (0-5/HPF); WBC Urine 10-30/HPF (0-5/HPF)
[2020-09-10 20:37] LABS: Bacteria Urine Few (2-10); Culture Indicated Urine Specimen Cultured; Mucus Urine 1+ (Negative)
[2020-09-10 20:39] LABS: INR 1.1 (0.9-1.3); Prothrombin Time 12.6 SECONDS (10.1-12.7)
[2020-09-10 20:42] LABS: PTT Partial Thromboplastin Tim 32 SECONDS (26.4-36.2)
[2020-09-10 20:47] LABS: Alanine Aminotransferase 20 IU/L (<50); Albumin 3.7 g/dL (3.5-5.0); Albumin Globulin Ratio 1.1 (1.0-2.8); Alkaline Phosphatase 116 U/L (38-126); Aspartate Aminotransferase 24 IU/L (17-59); BUN Creatinine Ratio 18.9 (6-22); Bilirubin Total 0.3 mg/dL (0.2-1.3); Blood Urea Nitrogen 14 mg/dL (9-20); Calcium 9.2 mg/dL (8.4-10.2); Carbon Dioxide 30 mmol/L (22-32); Chloride 103 mmol/L (98-107); Creatine Kinase 44 U/L (55-170); Estimated Glomerular Filt Rate > 60.0 mL/min (>60); Globulin 3.4 g/dL (1.7-4.1); Glucose 107 mg/dL (80-110); HEMOLYSIS < 15 (0-50); Lipase 51 U/L (23-300); Magnesium 2.4 mg/dL (1.6-2.3); Potassium 3.5 mmol/L (3.4-5.1); Sodium 140 mmol/L (137-145); Total Protein 7.1 g/dL (6.3-8.2)
[2020-09-10] MEDS: SODIUM CHLORIDE 0.9% 1,000 ML 1000 ML IV (20:47)
[2020-09-10 20:53] LABS: D Dimer 601 ng/mL (<230)
[2020-09-10 20:57] LABS: Troponin I < 0.012 ng/mL (0.01-0.034)
[2020-09-10] MEDS: LORazepam 2 MG/ML INJ 1 MG IV (21:01)
[2020-09-10 22:02] LABS: COVID19 - ADMIT (NP swab/PCR) Negative (Negative)
--- NOTE | 2020-09-10 22:34 | P.HP_ITS ---
History of Present Illness History of Present Illness Date Patient Seen: 09/10/20 Time Patient Seen: 22:34 Chief complaint: chest pains, vomiting, nausea, feels weak Narrative: The patient is a gentleman who had his COVID vaccination on the . Since that time he has developed persistent nausea vomiting and hiccups. He has not been able the tolerate p.o. and has not been having bowel movements, noting that his last bowel movement was around 08/26/2020. He has been in the emergency room at [facility] approximately 08/30/2020, and in [place] ED on 09/08, and 09/09 with complete workups and various imaging at without diagnosis. He has some intermittent abdominal pain and bloating after eating which then is followed by vomiting. Initially the vomit did not contain blood a bit only the last 2-3 days has he seen blood when he has emesis, he notes vomiting approximately 4-5 times each day. Patient denies medical history but does note that he has had problems with acid reflux and gastroenteritis in the past and had an EGD approximately 3 years ago where polyps were removed. Patient takes no medications and only notes a previous surgery for cholecystectomy. Patient denies any history of GI bleed, gastric ulcers, or blood in urine or stool pr ior. Patient smokes 1 pack per day for approximately 50 years, and only drinks alcohol on special occasions, denies recreational drug use. Patient states that his abdominal discomfort is approximately a 6/10 at this time greatest discomfort is to the epigastric area, right upper abdominal, and left oblique area and nausea 6/10 with mild body aches, mild shortness of breath, improved from the ED. patient complains that he had been suffering from intractable hiccups for the past 2-3 days but has resolved is currently not present at this time. Patient denies chest pain, fever, recent injury trauma or illness, skin rashes or injury, infection, no exposure, denies cardiac or pulmonary history. Patient denies regular NSAID use or alcohol ingestion. Patient is conversing calmly relaxed in no distress at this time while resting in bed his is at the bedside. Patient's vitals upon admit temp 98.8?, BP 132/65, HR 74, RR 23, O2 saturation 97% on room air. Patient's labs WBC 16.3, magnesium 2.4, urine was positive for bacteria 1+-culture pending, D-dimer 601 but when corrected for age not elevated, total creatinine kinase 44, troponins are negative, lipase negative. CTA/Pelvis 09/08/20:No evidence of acute abdominal process. Enlarged prostate. Large filling defect in the base of the bladder, possibly extrinsic compression from the prostate versus intrinsic bladder mass. Recommend nonemergent urological consultation. 09/10/20 Chest/ABD xray:No specific evidence of bowel obstruction seen at this time although if the patient's symptoms do not improve, continued surveillance with abdominal series radiographs could be performed. Moderate stool. ABD U/S 09/10/20:Liver measures 16.9 cm and is unremarkable. The main portal vein measures 11 mm in is patent. Gallbladder surgically absent. No bile duct dilatation. The pancreas is unremarkable. Surgery consult Dr. Grhaam in ED, surgery will consult and EGD tomorrow. Patient History Medical History (Updated 09/11/20 @ 00:51 by TOMY Panda) Acid reflux Surgical History History of laparoscopic cholecystectomy Family & Social History Family History (Updated 09/11/20 @ 00:52 by TOMY Panda) Mother Stroke Coronary artery disease Father No problems noted. 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 Safety & Behavioral: Feels Safe in Current Yes Environment Been Physically Hurt or No Threatened By a Person Tobacco & Substance use: Tobacco type cigarettes 1 pack a day times 50 years Smoking Status Current every day smoker alcohol intake current alcohol intake frequency holiday/special occasion Substance Use Type does not use Meds Home Medications and Allergies Home Medications Medication Instructions Recorded Confirmed Type ondansetron 4 mg PO Q8H PRN #10 tab 09/08/20 Rx Allergies Allergy/AdvReac Type Severity Reaction Status Date / Time amoxicillin AdvReac Mild Verified 09/10/20 19:02 Opioids - Morphine Analogues AdvReac Mild Vomiting Verified 09/10/20 19:02 narcoticss AdvReac Mild Vomiting Uncoded 09/10/20 19:02 Review of Systems Review of Systems ROS: Yes All systems reviewed with the patient and are negative except as othe rwise documented Gastrointestinal Gastrointestinal: Reports bloating, Reports change in bowel habits, Reports coffee ground emesis, Reports constipation, Reports early satiety, Reports nausea, Reports vomiting and Reports hematemesis Exam Vital Signs (past 8 hours): - 09/10/20 19:00 09/10/20 19:39 09/10/20 20:04 Temperature 98.8 F Pulse Rate 78 68 80 Respiratory Rate 18 17 Blood Pressure 150/77 H 169/81 H Pulse Oximetry 99 93 95 09/10/20 20:05 09/10/20 20:28 09/10/20 20:30 Temperature Pulse Rate 80 86 82 Respiratory Rate 19 12 Blood Pressure 165/87 H 145/112 H 151/77 H Pulse Oximetry 99 98 98 09/10/20 21:00 09/10/20 21:30 09/10/20 21:31 Temperature Pulse Rate 75 73 74 Respiratory Rate 20 22 23 Blood Pressure 169/84 H 132/65 Pulse Oximetry 98 97 97 09/10/20 22:00 Temperature Pulse Rate 76 Respiratory Rate 23 Blood Pressure 126/79 Pulse Oximetry 97 Oxygen Delivery Method Room Air Narrative Exam Narrative: General: Patient is a well-developed, well-nourished in no distress at this time. HEENT: Normocephalic, atraumatic, extraocular muscles intact, oral pharynx is clear and mucous membranes are moist. Neck is supple and symmetric, trachea is midline, no adenopathy, no thyroid enlargement, nontender, no masses palpated. Negative for JVD Chest: Normal AP diameter and contour without kyphoscoliosis, no nasal flaring, retractions, or tachypneic labored Lungs: Auscultation of all lung nesbitt are clear without adventitious sounds, wheezes, rhonchi, or rales. Cardio: S1 & S2 with regular rate and rhythm without murmur, rubs, or gallops, no carotid bruit, no cardiac pulsations present. Abdomen: Firm distended, greatest tenderness in the epigastric region, mild tenderness to left oblique area, and right upper abdominal area approximately MCL, negative for organomegaly, or masses. Bowel sounds are present in all 4 quadrants hypoactive without guarding or rebound, no CVA tenderness. Musculoskeletal: Muscle strength and tone are equal within normal limits, no deformity, crepitus, effusions, cyanosis, clubbing or edema present. Full range of motion intact radial and pedal pulses are normal. Skin: Warm dry and intact without rashes, ulcerations or petechiae. Neuro: Alert and orientated x3, strength is +5/5 in all extremities, sensation to touch intact, no gross deficits noted of cranial nerves. Psych: Patient has a well-kept appearance, appropriate affect, mental status attitude thought context and judgment are appropriate for age. Objective Labs Result Diagrams: 09/10/20 20:10 09/10/20 20:10 Labs: Laboratory Results - last 24 hr 09/10/20 09/10/20 09/10/20 20:00 20:10 20:10 WBC 16.3 H RBC 4.93 Hgb 15.5 Hct 44.7 MCV 90.6 MCH 31.4 MCHC 34.7 RDW 14.0 Plt Count 207 Neut % (Auto) 79.4 H Lymph % (Auto) 11.7 L Morton % (Auto) 6.9 Eos % (Auto) 0.9 L Baso % (Auto) 1.1 Neut # (Auto) 83187 H Lymph # (Auto) 1900 Morton # (Auto) 1100 H Eos # (Auto) 100 Baso # (Auto) 200 H PT 12.6 INR 1.1 APTT 32 D-Dimer Sodium Potassium Chloride Carbon Dioxide BUN Creatinine Estimated GFR BUN/Creatinine Ratio Glucose Calcium Magnesium Total Bilirubin AST ALT Alkaline Phosphatase Total Creatine Kinase CK-MB (CK-2) CK-MB (CK-2) Rel Index Troponin I Total Protein Albumin Globulin Albumin/Globulin Ratio Lipase Urine Color Yellow Urine Appearance Slightly cloudy Urine pH 7.0 Ur Specific [place] 1.020 Urine Protein Trace H Urine Glucose (UA) Negative Urine Ketones Negative Urine Occult Blood Negative Urine Nitrate Negative Urine Bilirubin Negative Urine Urobilinogen 1.0 Ur Leukocyte Esterase 2+ H Urine RBC None seen Urine WBC 10-30/hpf H Ur Squamous Epith Cells 1-5 /hpf Amorphous Sediment 1+ Urine Bacteria Few (2-10) H Urine Mucus 1+ H Ur Culture Indicated? Specimen cultured SARS-CoV-2 (PCR) Blood Type Antibody Screen 09/10/20 09/10/20 09/10/20 20:10 20:10 20:50 WBC RBC Hgb Hct MCV MCH MCHC RDW Plt Count Neut % (Auto) Lymph % (Auto) Morton % (Auto) Eos % (Auto) Baso % (Auto) Neut # (Auto) Lymph # (Auto) Morton # (Auto) Eos # (Auto) Baso # (Auto) PT INR APTT D-Dimer 601 H Sodium 140 Potassium 3.5 Chloride 103 Carbon Dioxide 30 BUN 14 Creatinine 0.74 Estimated GFR > 60.0 BUN/Creatinine Ratio 18.9 Glucose 107 Calcium 9.2 Magnesium 2.4 H Total Bilirubin 0.3 AST 24 ALT 20 Alkaline Phosphatase 116 Total Creatine Kinase 44 L CK-MB (CK-2) TNP CK-MB (CK-2) Rel Index TNP Troponin I < 0.012 Total Protein 7.1 Albumin 3.7 Globulin 3.4 Albumin/Globulin Ratio 1.1 Lipase 51 Urine Color Urine Appearance Urine pH Ur Specific [place] Urine Protein Urine Glucose (UA) Urine Ketones Urine Occult Blood Urine Nitrate Urine Bilirubin Urine Urobilinogen Ur Leukocyte Esterase Urine RBC Urine WBC Ur Squamous Epith Cells Amorphous Sediment Urine Bacteria Urine Mucus Ur Culture Indicated? SARS-CoV-2 (PCR) Blood Type O Negative Antibody Screen Negative 09/10/20 20:55 WBC RBC Hgb Hct MCV MCH MCHC RDW Plt Count Neut % (Auto) Lymph % (Auto) Morton % (Auto) Eos % (Auto) Baso % (Auto) Neut # (Auto) Lymph # (Auto) Morton # (Auto) Eos # (Auto) Baso # (Auto) PT INR APTT D-Dimer Sodium Potassium Chloride Carbon Dioxide BUN Creatinine Estimated GFR BUN/Creatinine Ratio Glucose Calcium Magnesium Total Bilirubin AST ALT Alkaline Phosphatase Total Creatine Kinase CK-MB (CK-2) CK-MB (CK-2) Rel Index Troponin I Total Protein Albumin Globulin Albumin/Globulin Ratio Lipase Urine Color Urine Appearance Urine pH Ur Specific [place] Urine Protein Urine Glucose (UA) Urine Ketones Urine Occult Blood Urine Nitrate Urine Bilirubin Urine Urobilinogen Ur Leukocyte Esterase Urine RBC Urine WBC Ur Squamous Epith Cells Amorphous Sediment Urine Bacteria Urine Mucus Ur Culture Indicated? SARS-CoV-2 (PCR) Negative Blood Type Antibody Screen Assessment & Plan Assessment & Plan narrative: This patient requires acute care inpatient hospital management for acute upper GI bleed with abdominal pain and vomiting of coffee-g round emesis times 2-3 days, after failing outpatient management with 3 ED visits prior on 08/30, 09/08, and 09/09/2020. The patient's tobacco abuse will impact his oxygenation. 1.Acute onset Upper GI bleed, acute, present on admission, Stable, as evidence by patient demonstrating coffee-ground emesis x 2-3 days, and in contractible hiccups times 2-3 days. -diagnostic criteria:-reported history of blood or coffee grounds emesis, BUN/CR ratio:18 -rule out gastric reflux, gastritis, duodenitis, esophageal varices, portal hypertensive gastropathy, angiodysplasia, peptic ulcer disease, aerophagia, Ximena-Gutierrez tear, and/or gastric cancer. -Hematemesis (either red blood or coffee-ground emesis) suggests bleeding proximal to the ligament of Treitz. The presence of frankly bloody emesis gongora ggests moderate to severe bleeding that may be ongoing, whereas coffee-ground emesis suggests more limited bleeding. HGB 15.5/HCT 44.7, RBC 4.93, PLT 207. vitals upon admit temp 98.8?, BP 132/65, HR 74, RR 23, O2 saturation 97% on room air. Patient's labs WBC 16.3, magnesium 2.4, urine was positive for bacteria 1+-culture pending, D-dimer 601 but when corrected for age not elevated, total creatinine kinase 44, troponins are negative, lipase negative. CTA/Pelvis 09/08/20:No evidence of acute abdominal process. Enlarged prostate. Large filling defect in the base of the bladder, possibly extrinsic compression from the prostate versus intrinsic bladder mass. Recommend nonemergent urological consultation. 09/10/20 Chest/ABD xray:No specific evidence of bowel obstruction seen at this time although if the patient's symptoms do not improve, continued surveillance with abdominal series radiographs could be performed. Moderate stool. ABD U/S 09/10/20:Liver measures 16.9 cm and is unremarkable. The main portal vein measures 11 mm in is patent. Gallbladder surgically absent. No bile duct dilatation. The pancreas is unremarkable. Consult in ED Dr. Graham:Patient with intractable hiccups nausea vomiting and onset of hematemesis. May have a Ximena-Gutierrez tear. Recommend Thorazine to consideration for the cessation of his hiccups. Good nausea control. Consider upper endoscopy in the morning. I will leave that to the discretion of my colleague. Keep NPO. -surgical consult tomorrow -closely monitor airway, clinical status, vital signs, cardiac rhythm, urinary output, and NG output if in place. -vital signs if unstable q.1 hours x2, then q.4 hours if stable, call for heart rate> 100, systolic BP< 100, activity-as tolerated with fall precautions, patient on clear liquids-will re-evaluate tomorrow, strict I&O Q shift, No VTE/DVT prophylaxis due to bleeding risk. -NPO -comorbidities that complicate or exacerbate anemia condition include coronary artery disease, older patient age, and COPD. -patient was typed and cross in Ed -Reglan 10 mg -Thorazine 25 mg IV Q 8 hours for intractable hiccups -Protonix 40 mg IV- ordered daily -labs ordered CBC, peripheral smear, reticulocyte count, PT, PTT, iron profile, CMP, lactate -prevention vaccines: Seasonal flu recommended 2. Tobacco abuse, acute on chronic, present on admit -smoking cessation encouraged Code status: DNR-per patient during admit exam present COVID PCR: Negative Surrogate decision maker: Shobha VTE/DVT prophylaxis: Contraindicated SCDs only Scores GCS Imboden coma scale eye opening: Spontaneous Imboden coma scale verbal response: Orientated Imboden coma scale motor response: Obey commands Jessica coma scale total score: 15 Wells' Criteria for PE Clinical signs and symptoms of DVT: No PE is #1 Dx or equally likely: No Heart rate > 100: No Immobilization at least 3 days or surg in previous 4 weeks: No History of PE or DVT: No Hemoptysis: No Malignancy w/Treatment within 6 months or palliative: No Wells' PE Score total: 0
[2020-09-10 22:44] LABS: Phosphorous 3.1 mg/dL (2.3-3.7)
[2020-09-10] MEDS: METOCLOPRAMIDE 10 MG/2 ML INJ IV (23:08)
--- NOTE | 2020-09-10 23:11 | PM.CN ---
History of Present Illness Consult details Date Patient Seen: 09/10/20 Time Patient Seen: 23:11 Chief complaint: chest pains, vomiting, nausea, feels weak Reason for consult: Coffee-ground emesis Requesting provider: Rojelio Grimaldo Narrative: The patient is a gentleman who had his COVID vaccination on the . Since that time he has developed persistent nausea vomiting and hiccups. He has not been able the tolerate p.o. and has not been having bowel movements. He has been in the emergency room multiple times and has had various imaging at without diagnosis. He has some intermittent pain when he tries to eat heaped bloats. Initially the vomit did not contain blood a bit only the last couple of days has he seen blood when he has emesis. Patient does not smoke and does not use alcohol. He has never had ulcers that he is aware of. Meds Home Medications and Allergies Home Medications Medication Instructions Recorded Confirmed Type ondansetron 4 mg PO Q8H PRN #10 tab 09/08/20 Rx Allergies Allergy/AdvReac Type Severity Reaction Status Date / Time amoxicillin AdvReac Mild Verified 09/10/20 19:02 Opioids - Morphine Analogues AdvReac Mild Vomiting Verified 09/10/20 19:02 narcoticss AdvReac Mild Vomiting Uncoded 09/10/20 19:02 Review of Systems Review of Systems Narrative: Patient has no heart or breathing problems. No black or bloody bowel movements. He has had a recent colonoscopy. No seizures or blackouts. He has been feeling dizzy. Exam Vital Signs (past 8 hours): - 09/10/20 19:00 09/10/20 19:39 09/10/20 20:04 Temperature 98.8 F Pulse Rate 78 68 80 Respiratory Rate 18 17 Blood Pressure 150/77 H 169/81 H Pulse Oximetry 99 93 95 09/10/20 20:05 09/10/20 20:28 09/10/20 20:30 Temperature Pulse Rate 80 86 82 Respiratory Rate 19 12 Blood Pressure 165/87 H 145/112 H 151/77 H Pulse Oximetry 99 98 98 09/10/20 21:00 09/10/20 21:30 09/10/20 21:31 Temperature Pulse Rate 75 73 74 Respiratory Rate 20 22 23 Blood Pressure 169/84 H 132/65 Pulse Oximetry 98 97 97 09/10/20 22:00 Temperature Pulse Rate 76 Respiratory Rate 23 Blood Pressure 126/79 Pulse Oximetry 97 Oxygen Delivery Method Room Air Narrative Exam Narrative: Cooperative gentleman in no apparent distress. His eyes are nonicteric lungs are clear to auscultation no rales or rhonchi heart regular rate and rhythm no murmur gallop abdomen is scaphoid soft nontender without mass. Patient actively hiccuping throughout the interview and exam. Patient is alert and oriented. Objective Labs Result Diagrams: 09/10/20 20:10 09/10/20 20:10 Labs: Laboratory Results - last 24 hr 09/10/20 09/10/20 09/10/20 20:00 20:10 20:10 WBC 16.3 H RBC 4.93 Hgb 15.5 Hct 44.7 MCV 90.6 MCH 31.4 MCHC 34.7 RDW 14.0 Plt Count 207 Neut % (Auto) 79.4 H Lymph % (Auto) 11.7 L [place] % (Auto) 6.9 Eos % (Auto) 0.9 L Baso % (Auto) 1.1 Neut # (Auto) 55888 H Lymph # (Auto) 1900 [place]aines # (Auto) 1100 H Eos # (Auto) 100 Baso # (Auto) 200 H PT 12.6 INR 1.1 APTT 32 D-Dimer Sodium Potassium Chloride Carbon Dioxide BUN Creatinine Estimated GFR BUN/Creatinine Ratio Glucose Calcium Phosphorus Magnesium Total Bilirubin AST ALT Alkaline Phosphatase Total Creatine Kinase CK-MB (CK-2) CK-MB (CK-2) Rel Index Troponin I Total Protein Albumin Globulin Albumin/Globulin Ratio Lipase Urine Color Yellow Urine Appearance Slightly cloudy Urine pH 7.0 Ur Specific [place] 1.020 Urine Protein Trace H Urine Glucose (UA) Negative Urine Ketones Negative Urine Occult Blood Negative Urine Nitrate Negative Urine Bilirubin Negative Urine Urobilinogen 1.0 Ur Leukocyte Esterase 2+ H Urine RBC None seen Urine WBC 10-30/hpf H Ur Squamous Epith Cells 1-5 /hpf Amorphous Sediment 1+ Urine Bacteria Few (2-10) H Urine Mucus 1+ H Ur Culture Indicated? Specimen cultured SARS-CoV-2 (PCR) Blood Type Antibody Screen 09/10/20 09/10/20 09/10/20 20:10 20:10 20:10 WBC RBC Hgb Hct MCV MCH MCHC RDW Plt Count Neut % (Auto) Lymph % (Auto) [place] % (Auto) Eos % (Auto) Baso % (Auto) Neut # (Auto) Lymph # (Auto) [place] # (Auto) Eos # (Auto) Baso # (Auto) PT INR APTT D-Dimer 601 H Sodium 140 Potassium 3.5 Chloride 103 Carbon Dioxide 30 BUN 14 Creatinine 0.74 Estimated GFR > 60.0 BUN/Creatinine Ratio 18.9 Glucose 107 Calcium 9.2 Phosphorus 3.1 Magnesium 2.4 H Total Bilirubin 0.3 AST 24 ALT 20 Alkaline Phosphatase 116 Total Creatine Kinase 44 L CK-MB (CK-2) TNP CK-MB (CK-2) Rel Index TNP Troponin I < 0.012 Total Protein 7.1 Albumin 3.7 Globulin 3.4 Albumin/Globulin Ratio 1.1 Lipase 51 Urine Color Urine Appearance Urine pH Ur Specific [place] Urine Protein Urine Glucose (UA) Urine Ketones Urine Occult Blood Urine Nitrate Urine Bilirubin Urine Urobilinogen Ur Leukocyte Esterase Urine RBC Urine WBC Ur Squamous Epith Cells Amorphous Sediment Urine Bacteria Urine Mucus Ur Culture Indicated? SARS-CoV-2 (PCR) Blood Type Antibody Screen 09/10/20 09/10/20 20:50 20:55 WBC RBC Hgb Hct MCV MCH MCHC RDW Plt Count Neut % (Auto) Lymph % (Auto) [place] % (Auto) Eos % (Auto) Baso % (Auto) Neut # (Auto) Lymph # (Auto) [place]aines # (Auto) Eos # (Auto) Baso # (Auto) PT INR APTT D-Dimer Sodium Potassium Chloride Carbon Dioxide BUN Creatinine Estimated GFR BUN/Creatinine Ratio Glucose Calcium Phosphorus Magnesium Total Bilirubin AST ALT Alkaline Phosphatase Total Creatine Kinase CK-MB (CK-2) CK-MB (CK-2) Rel Index Troponin I Total Protein Albumin Globulin Albumin/Globulin Ratio Lipase Urine Color Urine Appearance Urine pH Ur Specific [place] Urine Protein Urine Glucose (UA) Urine Ketones Urine Occult Blood Urine Nitrate Urine Bilirubin Urine Urobilinogen Ur Leukocyte Esterase Urine RBC Urine WBC Ur Squamous Epith Cells Amorphous Sediment Urine Bacteria Urine Mucus Ur Culture Indicated? SARS-CoV-2 (PCR) Negative Blood Type O Negative Antibody Screen Negative Assessment & Plan Assessment & Plan narrative: Patient with intractable hiccups nausea vomiting and onset of hematemesis. May have a Ximena-Gutierrez tear. Recommend Thorazine to consideration for the cessation of his hiccups. Good nausea control. Consider upper endoscopy in the morning. I will leave that to the discretion of my colleague. Keep NPO.
[2020-09-11] MEDS: LACTATED RINGERS 1,000 ML 100 ML IV ×2 (00:27→09:58)
[2020-09-11 01:33] LABS: Reticulocyte Count, Percent 1.4 % (0.87-2.60)
[2020-09-11] MEDS: SCOPOLAMINE 1 PATCH TOP (02:40)
[2020-09-11 03:03] VITALS: BP 101/63; BP 113/68; BP 118/70; PULSE 63; PULSE 74; PULSE 77
[2020-09-11 03:53] LABS: Add Manual Diff / Slide Review NO; Basophils Absolute Auto 100 /uL (0-100); Basophils Percent Auto 0.6 % (0-2); Eosinophils Absolute Auto 100 /uL (0-450); Hematocrit 38.8 % (41-53); Hemoglobin 13.4 g/dL (13.5-17.5); Lymphocytes Absolute Auto 2300 /uL (1100-4500); Lymphocytes Percent Auto 19.8 % (25-40); Mean Corpuscular HGB Conc 34.6 % (30-36); Mean Corpuscular Hemoglobin 31.1 PG (26-34); Mean Corpuscular Volume 90.1 fL (80-100); Monocytes Absolute Auto 900 /uL (0-900); Monocytes Percent Auto 8.1 % (3-14); Neutrophils Absolute Auto 8000 /uL (1500-7000); Neutrophils Percent Auto 70.5 % (50-75); Platelet Count 179 X10^3/uL (150-400); Red Cell Distribution Width 13.8 % (11.6-14.8); White Blood Cell Count 11.4 X10^3/uL (4.5-11.0)
[2020-09-11 03:57] LABS: INR 1.2 (0.9-1.3); Prothrombin Time 13.8 SECONDS (10.1-12.7)
[2020-09-11 04:09] LABS: Cholesterol 140 mg/dL (140-199); HDL Cholesterol 32 mg/dL (40-60); LDL Cholesterol Calculated 95 mg/dL (<100); Triglycerides 67 mg/dL (35-150)
[2020-09-11 04:10] LABS: Alanine Aminotransferase 15 IU/L (<50); Albumin 2.8 g/dL (3.5-5.0); Alkaline Phosphatase 84 U/L (38-126); Aspartate Aminotransferase 18 IU/L (17-59); BUN Creatinine Ratio 16.4 (6-22); Bilirubin Total 0.4 mg/dL (0.2-1.3); Blood Urea Nitrogen 11 mg/dL (9-20); Calcium 8.4 mg/dL (8.4-10.2); Carbon Dioxide 27 mmol/L (22-32); Chloride 106 mmol/L (98-107); Estimated Glomerular Filt Rate > 60.0 mL/min (>60); Globulin 2.8 g/dL (1.7-4.1); Glucose 104 mg/dL (80-110); HEMOLYSIS < 15 (0-50); Potassium 3.6 mmol/L (3.4-5.1); Sodium 137 mmol/L (137-145); Total Protein 5.6 g/dL (6.3-8.2)
[2020-09-11 04:14] LABS: HEMOLYSIS < 15 (0-50); Iron 22 ug/dL (49-181)
[2020-09-11 04:25] LABS: Percent Iron Saturation 9 % (20-50); Total Iron Binding Capacity 238 ug/dL (261-462); Transferrin 175 mg/dL (206-381)
[2020-09-11 05:55] LABS: Magnesium 2.2 mg/dL (1.6-2.3)
--- NOTE | 2020-09-11 06:27 | PC.NURSE ---
Admit/Night Note-Patient brought to AC room 224, able to ambulate from stretcher to BR to bed with SBA, slightly unsteady. Place on telemetry, NSR, VSS. No N/V/D, does cough, burp, and has frequent hiccups, denies abdominal pain. NPO, LR @ 100ml/hr, scop patch placed behind left ear. Voids small amount concentrated urine frequently.
[2020-09-11 07:00] VITALS: BP 113/86; BP 127/72; BP 133/62; PULSE 65; PULSE 66; PULSE 83
[2020-09-11 08:00] VITALS: BP 127/72; PULSE 65; RESP 17; TEMP 36.6; O2SAT 96
[2020-09-11 09:02] LABS: Lipase 38 U/L (23-300)
[2020-09-11] MEDS: BACLOFEN 10 MG TABLET 5 MG PO (10:18)
[2020-09-11] MEDS: PANTOPRAZOLE 40 MG VIAL IV (10:18)
--- NOTE | 2020-09-11 10:43 | CM.DANOTE ---
DCP: Case received, EMR reviewed and met with patient. , Shobha, was also at bedside. Was able to obtain information from patient regarding his baseline activity status prior to hospitalization. DCP assessment completed with information currently available. Patient is a 64 year old male who admitted yesterday evening to the care of the hospitalist. PCP: Dr. Beach. Payer: confirmed: [employer]. Patient came to the hospital via private vehicle secondary to having some chest discomfort, hiccups, as well as coffee ground emesis. Patient had recently been seen at [facility] on 08/30, for similiar symptoms, as well as ER here at [place] 09/08 & 09/09. Patient is supposed to have an EGD today. Met with patient, and , Shobha in the room. He is laying in bed, alert and oriented. He is currently NPO for procedure. Patient is retired [employer] but is currently employed at the [employer], as well as [employer]. He stated, his biggest problems are the hiccups, and he had been coughing up mucous. P: DCP to continue to follow. Patient is supposed to have procedure today, but unsure of time. Patient could possibly discharge today depending on time and results of procedure. Mariana Salgado RN/[employer] Review[employer]
--- NOTE | 2020-09-11 10:57 | PC.NURSE ---
Addendum entered by Jamey Vogt R.N. 09/11/20 14:17: after discussion with Dr. Narvaez and Dr. Castillo Pt readied for home. Pt and given instruction. Pt will call PCP Sunday regarding further instruction. Pt escorted to private car and care of family. Original Note: Pt wakes druosily after just being admitted at 06:27. Pt follows commands, annoyed with hiccups. Nodding of to sleep throughout assessment. Spoke with Dr. Muñoz see new orders Dr. Narvaez in to see Pt.
--- NOTE | 2020-09-11 11:23 | PM.PN.1 ---
Subjective Subjective Date Patient Seen: 09/11/20 Time Patient Seen: 11:23 Interval history: No further hematemesis. No abdominal pain with nausea nausea. Hungry Exam Vital Signs (past 8 hours): - 09/11/20 07:00 09/11/20 08:00 Temperature 97.9 F Pulse Rate 65 Pulse Rate [Orthostatic Lying] 66 Pulse Rate [Orthostatic Sitting] 65 Pulse Rate [Orthostatic Standing] 83 Respiratory Rate 17 Blood Pressure 127/72 Blood Pressure [Orthostatic Lying] 133/62 Blood Pressure [Orthostatic Sitting] 127/72 Blood Pressure [Orthostatic Standing] 113/86 Pulse Oximetry 96 Oxygen Delivery Method Room Air Narrative Exam Narrative: General adult male alert oriented no acute distress hiccuping Abdomen soft nontender and nondistended Objective Labs Result Diagrams: 09/11/20 03:35 09/11/20 03:35 Labs: Laboratory Results - last 24 hr 09/10/20 09/10/20 09/10/20 20:00 20:10 20:10 WBC 16.3 H RBC 4.93 Hgb 15.5 Hct 44.7 MCV 90.6 MCH 31.4 MCHC 34.7 RDW 14.0 Plt Count 207 Neut % (Auto) 79.4 H Lymph % (Auto) 11.7 L [place] % (Auto) 6.9 Eos % (Auto) 0.9 L Baso % (Auto) 1.1 Neut # (Auto) 28407 H Lymph # (Auto) 1900 [place] # (Auto) 1100 H Eos # (Auto) 100 Baso # (Auto) 200 H Percent Retic PT 12.6 INR 1.1 APTT 32 D-Dimer Sodium Potassium Chloride Carbon Dioxide BUN Creatinine Estimated GFR BUN/Creatinine Ratio Glucose Calcium Phosphorus Magnesium Iron TIBC % Saturation Transferrin Total Bilirubin AST ALT Alkaline Phosphatase Total Creatine Kinase CK-MB (CK-2) CK-MB (CK-2) Rel Index Troponin I Total Protein Albumin Globulin Albumin/Globulin Ratio Triglycerides Cholesterol LDL Cholesterol, Calc HDL Cholesterol Lipase Urine Color Yellow Urine Appearance Slightly cloudy Urine pH 7.0 Ur Specific [place] 1.020 Urine Protein Trace H Urine Glucose (UA) Negative Urine Ketones Negative Urine Occult Blood Negative Urine Nitrate Negative Urine Bilirubin Negative Urine Urobilinogen 1.0 Ur Leukocyte Esterase 2+ H Urine RBC None seen Urine WBC 10-30/hpf H Ur Squamous Epith Cells 1-5 /hpf Amorphous Sediment 1+ Urine Bacteria Few (2-10) H Urine Mucus 1+ H Ur Culture Indicated? Specimen cultured SARS-CoV-2 (PCR) Blood Type Antibody Screen 09/10/20 09/10/20 09/10/20 20:10 20:10 20:10 WBC RBC Hgb Hct MCV MCH MCHC RDW Plt Count Neut % (Auto) Lymph % (Auto) [place] % (Auto) Eos % (Auto) Baso % (Auto) Neut # (Auto) Lymph # (Auto) [place] # (Auto) Eos # (Auto) Baso # (Auto) Percent Retic PT INR APTT D-Dimer 601 H Sodium 140 Potassium 3.5 Chloride 103 Carbon Dioxide 30 BUN 14 Creatinine 0.74 Estimated GFR > 60.0 BUN/Creatinine Ratio 18.9 Glucose 107 Calcium 9.2 Phosphorus 3.1 Magnesium 2.4 H Iron TIBC % Saturation Transferrin Total Bilirubin 0.3 AST 24 ALT 20 Alkaline Phosphatase 116 Total Creatine Kinase 44 L CK-MB (CK-2) TNP CK-MB (CK-2) Rel Index TNP Troponin I < 0.012 Total Protein 7.1 Albumin 3.7 Globulin 3.4 Albumin/Globulin Ratio 1.1 Triglycerides Cholesterol LDL Cholesterol, Calc HDL Cholesterol Lipase 51 Urine Color Urine Appearance Urine pH Ur Specific [place] Urine Protein Urine Glucose (UA) Urine Ketones Urine Occult Blood Urine Nitrate Urine Bilirubin Urine Urobilinogen Ur Leukocyte Esterase Urine RBC Urine WBC Ur Squamous Epith Cells Amorphous Sediment Urine Bacteria Urine Mucus Ur Culture Indicated? SARS-CoV-2 (PCR) Blood Type Antibody Screen 09/10/20 09/10/20 09/10/20 20:10 20:50 20:55 WBC RBC Hgb Hct MCV MCH MCHC RDW Plt Count Neut % (Auto) Lymph % (Auto) [place] % (Auto) Eos % (Auto) Baso % (Auto) Neut # (Auto) Lymph # (Auto) [place] # (Auto) Eos # (Auto) Baso # (Auto) Percent Retic 1.4 PT INR APTT D-Dimer Sodium Potassium Chloride Carbon Dioxide BUN Creatinine Estimated GFR BUN/Creatinine Ratio Glucose Calcium Phosphorus Magnesium Iron TIBC % Saturation Transferrin Total Bilirubin AST ALT Alkaline Phosphatase Total Creatine Kinase CK-MB (CK-2) CK-MB (CK-2) Rel Index Troponin I Total Protein Albumin Globulin Albumin/Globulin Ratio Triglycerides Cholesterol LDL Cholesterol, Calc HDL Cholesterol Lipase Urine Color Urine Appearance Urine pH Ur Specific [place] Urine Protein Urine Glucose (UA) Urine Ketones Urine Occult Blood Urine Nitrate Urine Bilirubin Urine Urobilinogen Ur Leukocyte Esterase Urine RBC Urine WBC Ur Squamous Epith Cells Amorphous Sediment Urine Bacteria Urine Mucus Ur Culture Indicated? SARS-CoV-2 (PCR) Negative Blood Type O Negative Antibody Screen Negative 09/11/20 09/11/20 09/11/20 03:35 03:35 03:35 WBC 11.4 H RBC 4.30 L Hgb 13.4 L Hct 38.8 L MCV 90.1 MCH 31.1 MCHC 34.6 RDW 13.8 Plt Count 179 Neut % (Auto) 70.5 Lymph % (Auto) 19.8 L [place] % (Auto) 8.1 Eos % (Auto) 1.0 L Baso % (Auto) 0.6 Neut # (Auto) 8000 H Lymph # (Auto) 2300 [place] # (Auto) 900 Eos # (Auto) 100 Baso # (Auto) 100 Percent Retic PT 13.8 H INR 1.2 APTT D-Dimer Sodium 137 Potassium 3.6 Chloride 106 Carbon Dioxide 27 BUN 11 Creatinine 0.67 Estimated GFR > 60.0 BUN/Creatinine Ratio 16.4 Glucose 104 Calcium 8.4 Phosphorus Magnesium Iron TIBC % Saturation Transferrin Total Bilirubin 0.4 AST 18 ALT 15 Alkaline Phosphatase 84 Total Creatine Kinase CK-MB (CK-2) CK-MB (CK-2) Rel Index Troponin I Total Protein 5.6 L Albumin 2.8 L Globulin 2.8 Albumin/Globulin Ratio 1.0 Triglycerides Cholesterol LDL Cholesterol, Calc HDL Cholesterol Lipase Urine Color Urine Appearance Urine pH Ur Specific [place] Urine Protein Urine Glucose (UA) Urine Ketones Urine Occult Blood Urine Nitrate Urine Bilirubin Urine Urobilinogen Ur Leukocyte Esterase Urine RBC Urine WBC Ur Squamous Epith Cells Amorphous Sediment Urine Bacteria Urine Mucus Ur Culture Indicated? SARS-CoV-2 (PCR) Blood Type Antibody Screen 09/11/20 09/11/20 09/11/20 03:35 03:35 03:35 WBC RBC Hgb Hct MCV MCH MCHC RDW Plt Count Neut % (Auto) Lymph % (Auto) [place] % (Auto) Eos % (Auto) Baso % (Auto) Neut # (Auto) Lymph # (Auto) [place] # (Auto) Eos # (Auto) Baso # (Auto) Percent Retic PT INR APTT D-Dimer Sodium Potassium Chloride Carbon Dioxide BUN Creatinine Estimated GFR BUN/Creatinine Ratio Glucose Calcium Phosphorus Magnesium 2.2 Iron 22 L TIBC 238 L % Saturation 9 L Transferrin 175 L Total Bilirubin AST ALT Alkaline Phosphatase Total Creatine Kinase CK-MB (CK-2) CK-MB (CK-2) Rel Index Troponin I Total Protein Albumin Globulin Albumin/Globulin Ratio Triglycerides 67 Cholesterol 140 LDL Cholesterol, Calc 95 HDL Cholesterol 32 L Lipase Urine Color Urine Appearance Urine pH Ur Specific [place] Urine Protein Urine Glucose (UA) Urine Ketones Urine Occult Blood Urine Nitrate Urine Bilirubin Urine Urobilinogen Ur Leukocyte Esterase Urine RBC Urine WBC Ur Squamous Epith Cells Amorphous Sediment Urine Bacteria Urine Mucus Ur Culture Indicated? SARS-CoV-2 (PCR) Blood Type Antibody Screen 09/11/20 03:35 WBC RBC Hgb Hct MCV MCH MCHC RDW Plt Count Neut % (Auto) Lymph % (Auto) [place] % (Auto) Eos % (Auto) Baso % (Auto) Neut # (Auto) Lymph # (Auto) [place] # (Auto) Eos # (Auto) Baso # (Auto) Percent Retic PT INR APTT D-Dimer Sodium Potassium Chloride Carbon Dioxide BUN Creatinine Estimated GFR BUN/Creatinine Ratio Glucose Calcium Phosphorus Magnesium Iron TIBC % Saturation Transferrin Total Bilirubin AST ALT Alkaline Phosphatase Total Creatine Kinase CK-MB (CK-2) CK-MB (CK-2) Rel Index Troponin I Total Protein Albumin Globulin Albumin/Globulin Ratio Triglycerides Cholesterol LDL Cholesterol, Calc HDL Cholesterol Lipase 38 Urine Color Urine Appearance Urine pH Ur Specific [place] Urine Protein Urine Glucose (UA) Urine Ketones Urine Occult Blood Urine Nitrate Urine Bilirubin Urine Urobilinogen Ur Leukocyte Esterase Urine RBC Urine WBC Ur Squamous Epith Cells Amorphous Sediment Urine Bacteria Urine Mucus Ur Culture Indicated? SARS-CoV-2 (PCR) Blood Type Antibody Screen [facility] Medical History (Updated 09/11/20 @ 00:51 by TOMY Panda) Acid reflux Surgical History History of laparoscopic cholecystectomy Family History (Updated 09/11/20 @ 00:52 by TOMY Panda) Mother Stroke Coronary artery disease Father No problems noted. Social History household members: spouse Smoking Status: Current every day smoker alcohol intake: current Assessment & Plan Assessment & Plan narrative: 64-year-old man admitted for abdominal pain and hematemesis. Hemodynamically stable, non toxic, without peritonitis. Hematemesis was scant and spontaneously resolved. Suspect he may have had a slight Ximena-Gutierrez tear or or esophagitis. No evidence of ongoing GI hemorrage. Appears to have self-resolved. No need for EGD. -Diet as tolerated -PPI
[2020-09-11 12:22] VITALS: BP 124/74; PULSE 60; RESP 18; TEMP 36.9; O2SAT 98
--- NOTE | 2020-09-11 17:27 | PM.DS.1 ---
History of Present Illness History of Present Illness Chief complaint: chest pains, vomiting, nausea, feels weak Narrative: Per Sabine Johnson P: The patient is a gentleman who had his COVID vaccination on the . Since that time he has developed persistent nausea vomiting and hiccups. He has not been able the tolerate p.o. and has not been having bowel movements, noting that his last bowel movement was around 08/26/2020. He has been in the emergency room at [facility] approximately 08/30/2020, and in [place] ED on 09/08, and 09/09 with complete workups and various imaging at without diagnosis. He has some intermittent abdominal pain and bloating after eating which then is followed by vomiting. Initially the vomit did not contain blood a bit only the last 2-3 days has he seen blood when he has emesis, he notes vomiting approximately 4-5 times each day. Patient denies medical history but does note that he has had problems with acid reflux and gastroenteritis in the past and had an EGD approximately 3 years ago where polyps were removed. Patient takes no medications and only notes a previous surgery for cholecystectomy. Patient denies any history of GI bleed, gastric ulcers, or blood in urine or stool prior. Patient smokes 1 pack per day for approximately 50 years, and only drinks alcohol on special occasions, denies recreational drug use. Patient states that his abdominal discomfort is approximately a 6/10 at this time greatest discomfort is to the epigastric area, right upper abdominal, and left oblique area and nausea 6/10 with mild body aches, mild shortness of breath, improved from the ED. patient complains that he had been suffering from intractable hiccups for the past 2-3 days but has resolved is currently not present at this time. Patient denies chest pain, fever, recent injury trauma or illness, skin rashes or injury, infection, no exposure, denies cardiac or pulmonary history. Patient denies regular NSAID use or alcohol ingestion. Patient is conversing calmly relaxed in no distress at this time while resting in bed his is at the bedside. Patient's vitals upon admit temp 98.8?, BP 132/65, HR 74, RR 23, O2 saturation 97% on room air. Patient's labs WBC 16.3, magnesium 2.4, urine was positive for bacteria 1+-culture pending, D-dimer 601 but when corrected for age not elevated, total creatinine kinase 44, troponins are negative, lipase negative. CTA/Pelvis 09/08/20:No evidence of acute abdominal process. Enlarged prostate. Large filling defect in the base of the bladder, possibly extrinsic compression from the prostate versus intrinsic bladder mass. Recommend nonemergent urological consultation. 09/10/20 Chest/ABD xray:No specific evidence of bowel obstruction seen at this time although if the patient's symptoms do not improve, continued surveillance with abdominal series radiographs could be performed. Moderate stool. ABD U/S 09/10/20:Liver measures 16.9 cm and is unremarkable. The main portal vein measures 11 mm in is patent. Gallbladder surgically absent. No bile duct dilatation. The pancreas is unremarkable. Surgery consult Dr. Graham in ED, surgery will consult and EGD tomorrow. Discharge Providers Provider Date of admission: 09/10/20 22:34 Discharge Date: 09/11/20 Primary care physician: Cecile Beach MD Consults: 09/10/20 22:25 Consult to General Surgery Routine Comment: Consulting Provider: Shashi Graham Reason for consultation: Upper GI bleed Has provider been notified: Yes Discharge provider: Jaren Castillo MD Summary Hospital Course Discharge Diagnosis: 1. Gastritis 2. Intractable hiccups 3. Probable chantelle eisenberg tear 4. Filling defect in bladder noted on CT scan Hospital Course: Mr. Ayala came in with nausea and vomiting for days that then progressed to noting mild blood in his vomit. He came to the hospital and was found to have a hemoglobin of 13.4. In the hospital he rapidly improved with fluids and PPI. He had hiccups likely from gastric irritation which resolved with baclofen. He was able to tolerate PO diet. Surgery was consulted but agreed that as his symptoms had resolved and he was stable he did not need EGD. He was recommended to take PPI twice a day and follow up with his PCP. He had recent CT scan which showed no acute process but did show filling defect in the bladder, he is already referred to urology. He was checked for UTI but his urine culture was negative on day of discharge. Code status: DNR Status at Discharge Cognitive/behavioral status at discharge: oriented Functional status at discharge: independent ambulation Overall status at discharge: patient is back to baseline Exam Vital Signs (past 8 hours): - 09/11/20 12:22 Temperature 98.4 F Pulse Rate 60 Respiratory Rate 18 Blood Pressure 124/74 Pulse Oximetry 98 Oxygen Delivery Method Room Air Narrative Exam Narrative: General: no distress at this time. HEENT: PERRL, mucous membranes are moist. Negative for JVD Lungs: clear bilaterally with no wheezes, rhonchi, or rales. Cardio: regular rate and rhythm with no murmur Abdomen: soft, non distended, no tenderness normal bowel sounds, no organomegaly Musculoskeletal: Muscle strength and tone are equal and normal, no edema Skin: Warm dry with no rashes Neuro: Alert and orientated x3, strength is +5/5 in all extremities Psych: pleasant mood, cooperative Objective Labs Result Diagrams: 09/11/20 03:35 09/11/20 03:35 Labs: Laboratory Results - last 24 hr 09/10/20 09/10/20 09/10/20 20:00 20:10 20:10 WBC 16.3 H RBC 4.93 Hgb 15.5 Hct 44.7 MCV 90.6 MCH 31.4 MCHC 34.7 RDW 14.0 Plt Count 207 Neut % (Auto) 79.4 H Lymph % (Auto) 11.7 L [place] % (Auto) 6.9 Eos % (Auto) 0.9 L Baso % (Auto) 1.1 Neut # (Auto) 23205 H Lymph # (Auto) 1900 [place] # (Auto) 1100 H Eos # (Auto) 100 Baso # (Auto) 200 H Percent Retic PT 12.6 INR 1.1 APTT 32 D-Dimer Sodium Potassium Chloride Carbon Dioxide BUN Creatinine Estimated GFR BUN/Creatinine Ratio Glucose Calcium Phosphorus Magnesium Iron TIBC % Saturation Transferrin Total Bilirubin AST ALT Alkaline Phosphatase Total Creatine Kinase CK-MB (CK-2) CK-MB (CK-2) Rel Index Troponin I Total Protein Albumin Globulin Albumin/Globulin Ratio Triglycerides Cholesterol LDL Cholesterol, Calc HDL Cholesterol Lipase Urine Color Yellow Urine Appearance Slightly cloudy Urine pH 7.0 Ur Specific [place] 1.020 Urine Protein Trace H Urine Glucose (UA) Negative Urine Ketones Negative Urine Occult Blood Negative Urine Nitrate Negative Urine Bilirubin Negative Urine Urobilinogen 1.0 Ur Leukocyte Esterase 2+ H Urine RBC None seen Urine WBC 10-30/hpf H Ur Squamous Epith Cells 1-5 /hpf Amorphous Sediment 1+ Urine Bacteria Few (2-10) H Urine Mucus 1+ H Ur Culture Indicated? Specimen cultured SARS-CoV-2 (PCR) Blood Type Antibody Screen 09/10/20 09/10/20 09/10/20 20:10 20:10 20:10 WBC RBC Hgb Hct MCV MCH MCHC RDW Plt Count Neut % (Auto) Lymph % (Auto) [place] % (Auto) Eos % (Auto) Baso % (Auto) Neut # (Auto) Lymph # (Auto) [place] # (Auto) Eos # (Auto) Baso # (Auto) Percent Retic PT INR APTT D-Dimer 601 H Sodium 140 Potassium 3.5 Chloride 103 Carbon Dioxide 30 BUN 14 Creatinine 0.74 Estimated GFR > 60.0 BUN/Creatinine Ratio 18.9 Glucose 107 Calcium 9.2 Phosphorus 3.1 Magnesium 2.4 H Iron TIBC % Saturation Transferrin Total Bilirubin 0.3 AST 24 ALT 20 Alkaline Phosphatase 116 Total Creatine Kinase 44 L CK-MB (CK-2) TNP CK-MB (CK-2) Rel Index TNP Troponin I < 0.012 Total Protein 7.1 Albumin 3.7 Globulin 3.4 Albumin/Globulin Ratio 1.1 Triglycerides Cholesterol LDL Cholesterol, Calc HDL Cholesterol Lipase 51 Urine Color Urine Appearance Urine pH Ur Specific [place] Urine Protein Urine Glucose (UA) Urine Ketones Urine Occult Blood Urine Nitrate Urine Bilirubin Urine Urobilinogen Ur Leukocyte Esterase Urine RBC Urine WBC Ur Squamous Epith Cells Amorphous Sediment Urine Bacteria Urine Mucus Ur Culture Indicated? SARS-CoV-2 (PCR) Blood Type Antibody Screen 09/10/20 09/10/20 09/10/20 20:10 20:50 20:55 WBC RBC Hgb Hct MCV MCH MCHC RDW Plt Count Neut % (Auto) Lymph % (Auto) [place] % (Auto) Eos % (Auto) Baso % (Auto) Neut # (Auto) Lymph # (Auto) [place] # (Auto) Eos # (Auto) Baso # (Auto) Percent Retic 1.4 PT INR APTT D-Dimer Sodium Potassium Chloride Carbon Dioxide BUN Creatinine Estimated GFR BUN/Creatinine Ratio Glucose Calcium Phosphorus Magnesium Iron TIBC % Saturation Transferrin Total Bilirubin AST ALT Alkaline Phosphatase Total Creatine Kinase CK-MB (CK-2) CK-MB (CK-2) Rel Index Troponin I Total Protein Albumin Globulin Albumin/Globulin Ratio Triglycerides Cholesterol LDL Cholesterol, Calc HDL Cholesterol Lipase Urine Color Urine Appearance Urine pH Ur Specific [place] Urine Protein Urine Glucose (UA) Urine Ketones Urine Occult Blood Urine Nitrate Urine Bilirubin Urine Urobilinogen Ur Leukocyte Esterase Urine RBC Urine WBC Ur Squamous Epith Cells Amorphous Sediment Urine Bacteria Urine Mucus Ur Culture Indicated? SARS-CoV-2 (PCR) Negative Blood Type O Negative Antibody Screen Negative 09/11/20 09/11/20 09/11/20 03:35 03:35 03:35 WBC 11.4 H RBC 4.30 L Hgb 13.4 L Hct 38.8 L MCV 90.1 MCH 31.1 MCHC 34.6 RDW 13.8 Plt Count 179 Neut % (Auto) 70.5 Lymph % (Auto) 19.8 L [place] % (Auto) 8.1 Eos % (Auto) 1.0 L Baso % (Auto) 0.6 Neut # (Auto) 8000 H Lymph # (Auto) 2300 [place] # (Auto) 900 Eos # (Auto) 100 Baso # (Auto) 100 Percent Retic PT 13.8 H INR 1.2 APTT D-Dimer Sodium 137 Potassium 3.6 Chloride 106 Carbon Dioxide 27 BUN 11 Creatinine 0.67 Estimated GFR > 60.0 BUN/Creatinine Ratio 16.4 Glucose 104 Calcium 8.4 Phosphorus Magnesium Iron TIBC % Saturation Transferrin Total Bilirubin 0.4 AST 18 ALT 15 Alkaline Phosphatase 84 Total Creatine Kinase CK-MB (CK-2) CK-MB (CK-2) Rel Index Troponin I Total Protein 5.6 L Albumin 2.8 L Globulin 2.8 Albumin/Globulin Ratio 1.0 Triglycerides Cholesterol LDL Cholesterol, Calc HDL Cholesterol Lipase Urine Color Urine Appearance Urine pH Ur Specific [place] Urine Protein Urine Glucose (UA) Urine Ketones Urine Occult Blood Urine Nitrate Urine Bilirubin Urine Urobilinogen Ur Leukocyte Esterase Urine RBC Urine WBC Ur Squamous Epith Cells Amorphous Sediment Urine Bacteria Urine Mucus Ur Culture Indicated? SARS-CoV-2 (PCR) Blood Type Antibody Screen 09/11/20 09/11/20 09/11/20 03:35 03:35 03:35 WBC RBC Hgb Hct MCV MCH MCHC RDW Plt Count Neut % (Auto) Lymph % (Auto) [place] % (Auto) Eos % (Auto) Baso % (Auto) Neut # (Auto) Lymph # (Auto) [place] # (Auto) Eos # (Auto) Baso # (Auto) Percent Retic PT INR APTT D-Dimer Sodium Potassium Chloride Carbon Dioxide BUN Creatinine Estimated GFR BUN/Creatinine Ratio Glucose Calcium Phosphorus Magnesium 2.2 Iron 22 L TIBC 238 L % Saturation 9 L Transferrin 175 L Total Bilirubin AST ALT Alkaline Phosphatase Total Creatine Kinase CK-MB (CK-2) CK-MB (CK-2) Rel Index Troponin I Total Protein Albumin Globulin Albumin/Globulin Ratio Triglycerides 67 Cholesterol 140 LDL Cholesterol, Calc 95 HDL Cholesterol 32 L Lipase Urine Color Urine Appearance Urine pH Ur Specific [place] Urine Protein Urine Glucose (UA) Urine Ketones Urine Occult Blood Urine Nitrate Urine Bilirubin Urine Urobilinogen Ur Leukocyte Esterase Urine RBC Urine WBC Ur Squamous Epith Cells Amorphous Sediment Urine Bacteria Urine Mucus Ur Culture Indicated? SARS-CoV-2 (PCR) Blood Type Antibody Screen 09/11/20 03:35 WBC RBC Hgb Hct MCV MCH MCHC RDW Plt Count Neut % (Auto) Lymph % (Auto) [place] % (Auto) Eos % (Auto) Baso % (Auto) Neut # (Auto) Lymph # (Auto) [place] # (Auto) Eos # (Auto) Baso # (Auto) Percent Retic PT INR APTT D-Dimer Sodium Potassium Chloride Carbon Dioxide BUN Creatinine Estimated GFR BUN/Creatinine Ratio Glucose Calcium Phosphorus Magnesium Iron TIBC % Saturation Transferrin Total Bilirubin AST ALT Alkaline Phosphatase Total Creatine Kinase CK-MB (CK-2) CK-MB (CK-2) Rel Index Troponin I Total Protein Albumin Globulin Albumin/Globulin Ratio Triglycerides Cholesterol LDL Cholesterol, Calc HDL Cholesterol Lipase 38 Urine Color Urine Appearance Urine pH Ur Specific [place] Urine Protein Urine Glucose (UA) Urine Ketones Urine Occult Blood Urine Nitrate Urine Bilirubin Urine Urobilinogen Ur Leukocyte Esterase Urine RBC Urine WBC Ur Squamous Epith Cells Amorphous Sediment Urine Bacteria Urine Mucus Ur Culture Indicated? SARS-CoV-2 (PCR) Blood Type Antibody Screen [facility] Medical History (Updated 09/11/20 @ 00:51 by TOMY Panda) Acid reflux Surgical History History of laparoscopic cholecystectomy Family History (Updated 09/11/20 @ 00:52 by TOMY Panda) Mother Stroke Coronary artery disease Father No problems noted. Social History household members: spouse Smoking Status: Current every day smoker alcohol intake: current Discharge Plan Discharge Plan Patient Disposition: Home Provider Discharge Comment: Mr. Ayala was admitted with days of abdominal discomfort. He did have a small amount of bleeding before coming in when he threw up, but that went away. He likely has a gastritis (irritation of his stomach) and would benefit from acid reducing medication which he is prescribed for twice a day. He also had hiccups likely related to this irritation and was given a medication to use as needed if he has hiccups. On previous visit to the hospital there was a questionable abnormal finding in his bladder and he was recommended to see urologist which he should still do. Discharge orders & Medications Prescriptions: New baclofen 10 mg Tablet 5 mg PO TID Qty: 6 RF: 0 pantoprazole 40 mg Tablet,Delayed Release (Dr/Ec) 40 mg PO 0700,2100 30 Days Qty: 60 RF: 0 Continued ondansetron 4 mg tablet,disintegrating 4 mg PO Q8H PRN (Reason: nausea and vomiting) Qty: 10 RF: 0 Follow up/Referrals: Cecile Beach MD [Primary Care Provider] - Diet/Activity/Treatments Diet: Diet as Tolerated Visit Report/Discharge Packet Instructions: DI for Gastritis, DI for Prescription Opioid Use, Pantoprazole, Baclofen Discharge Data Primary Care Provider: Cecile Beach Attending Provider: Sabine Spaulding [facility] [place] The patient has current or prior documentation of left ventricular ejection fraction (LVEF) less than 40%, or moderate or severely depressed left ventricular systolic function.: No
== END 2020-09-11 14:10 | disposition home or self-care (01) ==
LOC: ED 18:58 → AC 22:34
PROVIDERS: Internal Medicine; Admitting Provider Nurse Practitioner Family; Emergency Provider Emergency Medicine; Referring Provider Emergency Medicine; Visit Provider Nurse Practitioner Family
DX: K29.70 Gastritis, unspecified, without bleeding (principal); R07.9 Chest pain, unspecified; K92.0 Hematemesis; R06.6 Hiccough; R93.41 Abnormal radiologic findings on diagnostic imaging of renal pelvis, ureter, or bladder; Z20.822 Contact with and (suspected) exposure to COVID-19; F17.210 Nicotine dependence, cigarettes, uncomplicated
CPT/HCPCS: 36415; 74022; 76705; 80053; 80061; 81001; 82550; 82962; 83540; 83550; 83690; 83735; 84100; 84484; 85025; 85045; 85379; 85610; 85730; 86850; 86900; 86901; 87086; 87635; 93005; 93010; 96361; 96374; 96375; 96376; 99224; 99284; C9803; G0378; C9113; J2060; J2405; J2765

== ENCOUNTER 2020-12-05 09:03 | Emergency (ER) | payer OTHER, SELFPAY ==
[2020-09-10 23:06] VITALS: BMI 25.3
[2020-12-05 09:14] VITALS: BP 163/83; PULSE 74; RESP 16; TEMP 36.8; O2SAT 99; BMI 25.9
--- NOTE | 2020-12-05 09:24 | ED_ITS ---
HPI - Headache General Chief Complaint: Headache Stated Complaint: Headache, achey, sore throat, blurry vision Time Seen by Provider: 12/05/20 09:07 Mode of arrival: Ambulatory Limitations: no limitations History of Present Illness HPI Narrative: Patient is a 64-year-old male who is here for evaluation of 1-2 days of a generalized headache, not feeling well, cough, sinus congestion, sore throat, feeling somewhat dizzy and some blurry vision. He did take some Robitussin last evening which did help his symptoms somewhat. No fevers. No rashes. He is fully vaccinated with the [employer] vaccine for COVID 19. Related Data Previous Rx's Medication Instructions Recorded ondansetron 4 mg disintegrating 4 mg PO Q8H PRN #10 tab 09/08/20 tablet baclofen 10 mg tablet 5 mg PO TID #6 tab 09/11/20 Allergies Allergy/AdvReac Type Severity Reaction Status Date / Time amoxicillin AdvReac Mild Verified 09/10/20 19:02 Opioids - Morphine Analogues AdvReac Mild Vomiting Verified 09/10/20 19:02 narcoticss AdvReac Mild Vomiting Uncoded 09/10/20 19:02 Review of Systems Constitutional Constitutional: Reports fatigue and Denies fever(s) Eyes Comments: Some blurry vision ENT Comments: Sore throat sinus congestion Cardiovascular Comments: No chest pain Respiratory Comments: Cough Gastrointestinal Comments: Some diarrhea Genitourinary Genitourinary: Reports system reviewed and no additional complaints, except as documented Musculoskeletal Comments: Some body aches Integumentary/Breasts Comments: No rashes Neurologic Comments: Lightheadedness Psychiatric Psychiatric: Reports system reviewed and no additional complaints, except as documented Endocrine Endocrine: Reports fatigue Hematologic/Lymphatic On Anticoagulants: No Allergic/Immunologic Comments: No hives Patient History Medical History Acid reflux Surgical History History of laparoscopic cholecystectomy Family History (Updated 09/11/20 @ 00:52 [facility] Mother Stroke Coronary artery disease Father No problems noted. Social History household members: spouse Smoking Status: Current every day smoker alcohol intake: current Smoking Status: Current every day smoker alcohol intake frequency: holidays/special occasions only Substance Use Type: does not use Exam Initial Vital Signs Initial Vital Signs: Vital Signs Temperature 98.3 F 12/05/20 09:14 Pulse Rate 74 12/05/20 09:14 Respiratory Rate 16 12/05/20 09:14 Blood Pressure 163/83 H 12/05/20 09:14 Pulse Oximetry 99 12/05/20 09:14 Const General: cooperative, healthy appearing and comfortable HENMT Head: normal to inspection and normocephalic Ears: TM's normal bilaterally Nose: external nose normal Mouth: oral mucosae normal Throat: posterior oropharynx normal Eyes General: appearance normal, both eyes and all related structures Resp Auscultation: clear to auscultation bilaterally Cardio Rate: regular rate Rhythm: regular rhythm GI Inspection: normal to inspection Skin General: no rashes or lesions noted Neuro General: patient alert, patient awake, patient oriented x3 and moves all extremities Extrem General: normal to inspection and capillary refill normal Psych Appearance: grossly normal and well kempt Course Orders Ordered: ED Orders 12/05/20 09:24 COVID19 -Nasal swab/Pre-Proc Stat 12/05/20 09:25 XR chest 1V Stat Vital Signs Vital signs: Vital Signs - 8 hr 12/05/20 09:14 Temperature 98.3 F Pulse Rate 74 Respiratory Rate 16 Blood Pressure 163/83 H Pulse Oximetry 99 MDM - Headache Lab Data Attestation: I reviewed the patient's lab results. Labs: Lab Results 12/05/20 Range/Units 09:24 SARS-CoV-2 (PCR) Negative (Negative) Imaging Data Chest x-ray: Radiologist's Impression: [address] [id number] ReportSigned Patient: Shay Ayala DMR#: [id number]: 8Acct:[id number]/Sex: 64 / MDate of Service: 12/05/20Loc: EDAccession Number: [id number] Procedure: XR chest 1V Ordering Provider: David Yan D.O. PROCEDURE: XR CHEST 1V INDICATIONS: Eval for pneumonia TECHNIQUE: One view of the chest was acquired. COMPARISON: None. FINDINGS: Surgical changes and devices: None. Lungs and pleura: Lungs are clear. No pleural effusions or pneumothorax. Mediastinum: Mediastinal contours appear normal. Heart size is normal. Bones and chest wall: No suspicious bony lesions. Overlying soft tissues appear unremarkable. IMPRESSION: No acute cardiopulmonary pathology. Dictated by: Daron Pritchard M.D. on 12/05/2020 at 10:17 Approved by: Daron Pritchard M.D. on 12/05/2020 at 10:18 [facility] Narrative Medical decision making narrative: Chest x-ray is unremarkable. I have low suspicion for ACS. Low suspicion for CVA. Have a very high suspicion that his symptoms today are related to sinus congestion/upper respiratory infection. No pneumonia. No indication for antibiotics. I feel that we can hold on further workup for now. We did discuss the use of antihistamines. He was given return precautions and follow-up instructions. He expressed understanding and agreement. Discharge Plan Departure Patient Disposition: Home Clinical Impression: Upper respiratory infection Instructions: DI for Viral Upper Respiratory Infection -- Adult Activity Restrictions/Additional Instructions: I recommend that you start taking a antihistamine such as Claritin or Syl or Zyrtec or the generic version of these medications. They can be purchased [id number] atrial local drugstore. You can continue to take Robitussin as needed. Contact your primary provider for follow-up. Return to the emergency department for any new or worsening symptoms Prescriptions: No Action ondansetron 4 mg tablet,disintegrating 4 mg PO Q8H PRN (Reason: nausea and vomiting) Qty: 10 RF: 0 baclofen 10 mg Tablet 5 mg PO TID Qty: 6 RF: 0 Referrals: Cecile Beach MD [Primary Care Provider] -
[2020-12-05 10:22] LABS: COVID19 -Nasal RAPID Negative (Negative)
[2020-12-05 10:31] VITALS: BP 147/81; PULSE 78; RESP 16; O2SAT 98
[2020-12-05 10:43] VITALS: BP 155/80; PULSE 68; RESP 19; O2SAT 100
== END 2020-12-05 10:44 | disposition home or self-care (01) ==
PROVIDERS: Emergency Provider Emergency Medicine
DX: J06.9 Acute upper respiratory infection, unspecified (principal); Z20.822 Contact with and (suspected) exposure to COVID-19
CPT/HCPCS: 71045; 87635; 99282; 99283; C9803

== ENCOUNTER 2020-12-15 12:17 | Day surgery (SDC) | payer OTHER, SELFPAY ==
[2020-09-10 23:06] VITALS: BMI 25.3
[2020-12-15] VITALS (8 sets, daily range): BP systolic 114–131; BP diastolic 69–82; PULSE 61–69; RESP 14–20; TEMP 36.4–36.9; O2SAT 96–100; BMI 24.2
[2020-12-15] MEDS: SODIUM CHLORIDE 0.9% 1,000 ML 84 ML IV (14:26)
--- NOTE | 2020-12-15 14:39 | PM.HP.1 ---
History of Present Illness History of Present Illness Date Patient Seen: 12/15/20 Chief complaint: SDC *$63 copay* Narrative: Hematemesis Patient History Medical History Acid reflux Surgical History History of laparoscopic cholecystectomy Family & Social History Family History (Updated 09/11/20 @ 00:52 by MELISSA Panda-) Mother Stroke Coronary artery disease Father No problems noted. Social History: household members spouse Tobacco & Substance use: Tobacco type cigarettes Smoking Status Current every day smoker alcohol intake current alcohol intake frequency holiday/special occasion Substance Use Type does not use Meds Home Medications and Allergies Home Medications Medication Instructions Recorded Confirmed Type No Known Home Medications 12/15/20 12/15/20 History Allergies Allergy/AdvReac Type Severity Reaction Status Date / Time amoxicillin AdvReac Mild Verified 09/10/20 19:02 Opioids - Morphine Analogues AdvReac Mild Vomiting Verified 12/15/20 13:56 Exam Vital Signs (past 8 hours): - 12/15/20 14:23 Temperature 98.4 F Pulse Rate 65 Respiratory Rate 14 Blood Pressure 118/69 Pulse Oximetry 100 Oxygen Delivery Method Room Air Narrative Exam Narrative: Oropharynx free of lesions Chest clear to auscultation percussion Cardiac exam reveals no S3 or murmur Assessment & Plan Assessment & Plan narrative: History of hematemesis on a background GE reflux rule out significant esophagitis. EGD to be performed. Risks, benefits, alternatives have been explained
--- NOTE | 2020-12-15 14:40 | PM.OP.ENDO ---
Operative Date/Time/Diagnoses Date of procedure: 12/15/20 Pre-op diagnosis: See indication and findings Procedure & Clinicians Study performed: EGD Indications: Hematemesis and GE reflux Surgeon: Jeevan Maldonado Procedure Notes Procedure in detail: After informed consent was obtained the patient was placed in left lateral decubitus position. The video upper scope was placed into the oropharynx with the patient's help swelled into the esophagus. The esophagus stomach and duodenum were carefully examined. On withdrawal retroflexed view the GE junction was performed. The scope was removed. The patient tolerated procedure well. Blood loss none Complications none Sedation Total sedation time 14 minutes Fentanyl 100 micro g Versed 8 mg IV titration Findings 1. Grade D esophagitis for 3 cm distal segment of the esophagus. Not completely confluent ulcerations though in a web-like pattern throughout the esophagus distally. 2. Wide-open lower esophageal sphincter 3. Normal stomach and duodenum Shay is currently on no anti reflux measures or medications. He only really has reflux 0 6 heart from to justify staying on medications. Ideally needs to be on Protonix 40 mg once daily for at least 12 weeks and then we should repeat his upper endoscopy to ensure complete healing.
[2020-12-15 14:41] LABS: COVID19 -Nasal RAPID Negative (Negative)
[2020-12-15] MEDS: fentaNYL 250 MCG/5 ML INJ IV (14:50)
[2020-12-15] MEDS: MIDAZOLAM 5 MG/5 ML VIAL IV (14:58)
--- NOTE | 2020-12-15 15:44 | SUR.PHASEI ---
1542-Pt transferred to pacu phase 2 in stable condition sitting up drinking gingerale talking with staff, VSS. Report to SHANEL Hung
== END 2020-12-15 16:34 | disposition home or self-care (01) ==
PROVIDERS: Referring Provider Internal Medicine Gastroenterology; Visit Provider Internal Medicine Gastroenterology
PROC: 0DJ08ZZ Inspection of Upper Intestinal Tract, Via Natural or Artificial Opening Endoscopic (ICD-10-PCS; CPT 43235; principal; 2020-12-15 14:00)
DX: K21.00 Gastro-esophageal reflux disease with esophagitis, without bleeding (principal); K92.0 Hematemesis; K22.8 Other specified diseases of esophagus; Z20.822 Contact with and (suspected) exposure to COVID-19
CPT/HCPCS: 43235; 87635; J2250; J3010

== ENCOUNTER → 2021-02-21 13:44 | Outpatient (CLI) | payer OTHER, SELFPAY ==
[2020-09-10 23:06] VITALS: BMI 25.3
[2021-02-21 18:10] LABS: COVID19 -Nasal RAPID Negative (Negative)
== END ==
PROVIDERS: Referring Provider Nurse Practitioner Family; Visit Provider Nurse Practitioner Family
DX: Z20.822 Contact with and (suspected) exposure to COVID-19 (principal)
CPT/HCPCS: 87635

== ENCOUNTER 2021-02-22 11:25 | Day surgery (SDC) | payer OTHER, SELFPAY ==
[2020-09-10 23:06] VITALS: BMI 25.3
[2021-02-22] VITALS (10 sets, daily range): BP systolic 53–150; BP diastolic 25–89; PULSE 59–73; RESP 13–24; TEMP 36.4–36.9; O2SAT 96–100; BMI 25.3
--- NOTE | 2021-02-22 | PATH_ITS ---
[facility] Accession Number: [id number] . 01 Material submitted: . PART A: stomach - ANTRUM PART B: stomach - GASTRIC CARDIA . 02 Diagnosis: A. Stomach, Antrum, Biopsy: Antral mucosa with mild chronic gastritis. Negative for Helicobacter by immunohistochemistry. Negative for intestinal metaplasia. Negative for dysplasia and malignancy. . B. Stomach, Cardia, Biopsy: Gastric mucosa with foveolar hyperplasia. Negative for Helicobacter by immunohistochemistry. Negative for intestinal metaplasia. Negative for dysplasia and malignancy. MRV 02/25/2021 1505 Local . 02 Electronically signed: . Cecile Jha MD, Pathologist NPI- [id number] . 01 Gross description: . Part A: ANTRUM: Received in formalin are 2 fragment(s) of angel, soft tissue measuring 0.5 x 0.3 x 0.1 cm to 0.3 x 0.2 x 0.1 cm submitted entirely in 1 cassette(s) Part B: GASTRIC CARDIA: Received in formalin is 1 fragment(s) of angel, soft tissue measuring 0.3 x 0.2 x 0.2 cm submitted entirely in 1 cassette(s) /KAUSHAL 02/23/2021 0244 Local . 02 Microscopic: . A. An immunohistochemical stain was performed to evaluate for Helicobacter organisms and is negative. The control stain showed appropriate reactivity. . B. An immunohistochemical stain was performed to evaluate for Helicobacter organisms and is negative. The control stain showed appropriate reactivity. . * This test was developed and its performance characteristics determined by [employer]. It has not been cleared or approved by the U.S. Food and Drug Administration. The FDA has determined that such clearance or approval is not necessary. This test is used for clinical purposes. It should not be regarded as investigational or for research. . 02 Pathologist provided ICD-10: R10.9 . 02 CPT . 938491, 038258, F80993 Performed at: 01 [facility] [address] [id number] MD Lopez Briggs MD Phone: [phone] Performed at: [address] [place], [place] [id number] MD Cecile Jha MD Phone: [phone]
[2021-02-22] MEDS: SODIUM CHLORIDE 0.9% 1,000 ML 84 ML IV (11:55)
--- NOTE | 2021-02-22 11:58 | P.HP_ITS ---
History of Present Illness History of Present Illness Date Patient Seen: 02/22/21 Time Patient Seen: 11:58 Chief complaint: SDC Narrative: History of LA grade D erosive esophagitis. Patient stopped his PPI recently secondary to symptoms of constipation. Patient History Medical History Acid reflux Surgical History History of laparoscopic cholecystectomy Family & Social History Family History Mother Stroke Coronary artery disease Father No problems noted. Social History: household members spouse Tobacco & Substance use: Tobacco type cigarettes Smoking Status Current every day smoker alcohol intake current alcohol intake frequency holiday/special occasion Substance Use Type does not use Meds Home Medications and Allergies Allergies Allergy/AdvReac Type Severity Reaction Status Date / Time amoxicillin AdvReac Mild Verified 02/22/21 11:45 Opioids - Morphine Analogues AdvReac Mild Vomiting Verified 02/22/21 11:45 Review of Systems Review of Systems ROS: Yes All systems reviewed with the patient and are negative except as othe rwise documented Exam Vital Signs (past 8 hours): - 02/22/21 11:46 Temperature 98.2 F Pulse Rate 73 Respiratory Rate 18 Blood Pressure 150/89 H Pulse Oximetry 99 Oxygen Delivery Method Room Air Const General: cooperative and comfortable Orientation: alert HENMT Head: normocephalic Ears: external ears normal Nose: external nose normal Face and sinus: normal facial exam Mouth: oral mucosae normal Eyes General: appearance normal, both eyes and all related structures Neck Neck: normal visual inspection Chest Chest: normal inspection of the chest Resp Effort & Inspection: normal respiratory effort Auscultation: clear to auscultation bilaterally Cardio Rate: regular rate Rhythm: regular rhythm Heart Sounds: no murmurs GI Inspection: normal to inspection Palpation: soft and No tender Auscultation: normal bowel sounds Skin General: no rashes or lesions noted and No jaundice Neuro General: patient alert and moves all extremities Cognition: normal cognition Speech: speech normal Extrem General: no pedal edema Psych Appearance: grossly normal Assessment & Plan Assessment & Plan narrative: History of LA grade D erosive esophagitis. Fortunately PPI seems to have induced constipation and the patient took it upon himself did recently discontinue the medication. Repeat EGD is pursued today to evaluate for healing of the esophagus. Time Spent With Patient Critical Care time: I spent a total of [] minutes of critical care time on this patient's care today; this time is exclusive of procedural time.
--- NOTE | 2021-02-22 11:59 | PM.PREOP ---
Pre-operative Note COVID-19 COVID-19 status: Negative Result date/Date tested (Pos, Neg/Pending): 02/21/21 Interval Note History & Physical reviewed/Exam performed by Physician: Yes Changes to H&P: Yes ASA Class (for procedural sedation): II
--- NOTE | 2021-02-22 12:20 | P.OP.EGD_ITS ---
Operative Date/Time/Diagnoses Date of procedure: 02/22/21 Time of procedure: 12:20 Pre-op diagnosis: Esophagitis LA grade D Post-op diagnosis: same Procedure & Clinicians Study performed: EGD with biopsies Same procedure as scheduled: Yes Indications: LA grade D erosive esophagitis Surgeon: Ugo Villa Procedure Notes SCOAP/Timeout: Done Procedure in detail: After the risks and benefits were explained, written and verbal informed consent was obtained. The patient was brought into the procedure room and placed into the left lateral decubitus position. Please see nurse field case manager note for sedation details. The scope was introduced into the mouth through the bite block and advanced under direct visualization to the 2nd portion of the duodenum. The scope was slowly withdrawn carefully examining the mucosa for any defects or lesions. Retroflexed views were accomplished in the stomach. The stomach was decompressed, the scope was then removed from the patient who tolerated the procedure well. Sedation minutes: 10 Complications: none Impression: 1. Duodenum: Patient had a small diverticulum in the region of the major papilla. It is a otherwise no overt mucosal pathology appreciated from the bulb through the 2nd portion. 2. Stomach: Patient had a minimal subtle gastropathy evident in the antrum. Biopsies were acquired for exclusion of H.pylori. Retroflexed views of the LES disclosed a possible 10 mm submucosal mass effect versus full appearing fold. I pushed on this area with closed forceps and it did not feel all that hard or firm. The same time it was not sufficiently pillow like as would be typically seen in lipoma. I therefore took a small biopsy from this focus and submitted for histopathology. In the relaxed antegrade scope position I again placed the closed forceps across the lesion and it did not demonstrate a classic pillow sign. 3. Esophagus: Patient has persistent LA grade C erosive esophagitis. The GE junction was at approximately 46 cm from the incisors. Scattered subtle erosive features were noted all the way up to about 40 cm from the incisors. Endoscopic diagnosis 1. Gastric cardia submucosal fullness. 2. Mild gastropathy 3. LA grade C erosive esophagitis Post-procedure Plan for aftercare: 1. Await histopathology 2. Proceed with endoscopic ultrasound examination of the gastric cardia. 3. Initiation of some form of long-term antisecretory therapy. The patient indicates that ppi seems to profoundly constipated him so I have recommended famotidine daily. Disposition: PACU
== END 2021-02-22 13:22 | disposition home or self-care (01) ==
PROVIDERS: Referring Provider Internal Medicine Gastroenterology; Visit Provider Internal Medicine Gastroenterology
PROC: 0DJ08ZZ Inspection of Upper Intestinal Tract, Via Natural or Artificial Opening Endoscopic (ICD-10-PCS; CPT 43235; principal; 2021-02-22 12:30)
DX: K20.80 Other esophagitis without bleeding (principal); F17.210 Nicotine dependence, cigarettes, uncomplicated; K31.9 Disease of stomach and duodenum, unspecified; K29.50 Unspecified chronic gastritis without bleeding
CPT/HCPCS: 43239; J2704

== ENCOUNTER 2021-05-04 10:59 | Emergency (ER) | payer OTHER, SELFPAY ==
[2020-09-10 23:06] VITALS: BMI 25.3
[2021-05-04 11:06] VITALS: BP 200/96; PULSE 70; RESP 15; TEMP 36.7; O2SAT 100; BMI 25.3
[2021-05-04 14:36] VITALS: BP 197/96; PULSE 67; RESP 17; TEMP 36.5; O2SAT 98
--- NOTE | 2021-05-04 14:49 | ED_ITS ---
HPI - Headache General Chief Complaint: Headache Stated Complaint: Headache, abd tightness, diarrhea Time Seen by Provider: 05/04/21 14:30 Source: patient Mode of arrival: Ambulatory History of Present Illness HPI Narrative: Patient is a 65-year-old male. Several weeks ago he underwent a upper endoscopy. He states he has not been the same since then. He has felt very poorly. Has a headache. Has had diarrhea. Has had urinary frequency. Does have a history of prostate issues. Is on Flomax. He is also on reflux medication. Has not tried anything for the symptoms prior to arrival Related Data Home Medications Medication Instructions Recorded Confirmed pantoprazole 40 mg tablet,delayed 40 mg PO DAILY tab 03/09/21 03/09/21 release Previous Rx's Medication Instructions Recorded tamsulosin 0.4 mg capsule 0.4 mg PO BEDTIME #180 cap 03/09/21 Allergies Allergy/AdvReac Type Severity Reaction Status Date / Time amoxicillin AdvReac Mild Verified 05/04/21 11:06 Opioids - Morphine Analogues AdvReac Mild Vomiting Verified 05/04/21 11:06 Review of Systems Constitutional Constitutional: Reports fatigue, Denies fever(s) and Reports headache(s) ENT Ears, Nose, Mouth, and Throat: Reports headache(s) Cardiovascular Cardiovascular: Reports system reviewed and no additional complaints, except as documented Respiratory Respiratory: Reports system reviewed and no additional complaints, except as documented Gastrointestinal Gastrointestinal: Reports abdominal pain and Reports diarrhea Genitourinary Genitourinary: Reports difficulty urinating, Reports urinary frequency and Reports urinary urgency Integumentary/Breasts Skin/Breast: Reports system reviewed and no additional complaints, except as documented Neurologic Neurologic: Reports headache(s) Endocrine Endocrine: Reports fatigue Hematologic/Lymphatic On Anticoagulants: No Patient History Medical History Acid reflux BPH w urinary obs/LUTS Incomplete bladder emptying Surgical History History of laparoscopic cholecystectomy Family History Mother Stroke Coronary artery disease Father No problems noted. 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 special anaya needs: No Smoking Status: Current every day smoker Tobacco: How many years used: 40 alcohol intake: former caffeine: Yes Smoking Status: Current every day smoker alcohol intake frequency: holidays/special occasions only Substance Use Type: does not use Exam Initial Vital Signs Initial Vital Signs: Vital Signs Temperature 98.0 F 05/04/21 11:06 Pulse Rate 70 05/04/21 11:06 Respiratory Rate 15 05/04/21 11:06 Blood Pressure 200/96 H 05/04/21 11:06 Pulse Oximetry 100 05/04/21 11:06 HENMT Head: normal to inspection and normocephalic Eyes General: appearance normal, both eyes and all related structures Resp Effort & Inspection: normal respiratory effort Cardio Rate: regular rate GI Palpation: soft, firm, No guarding and tender (Lower abdomen) Percussion: normal to percussion Skin General: no rashes or lesions noted Neuro General: patient alert, patient awake, patient oriented x3 and moves all extremities Extrem General: normal to inspection and capillary refill normal Psych Appearance: grossly normal and well kempt Course Vital Signs Vital signs: Vital Signs - 8 hr 05/04/21 11:06 05/04/21 14:36 05/04/21 16:28 Temperature 98.0 F 97.7 F Pulse Rate 70 67 64 Respiratory Rate 15 17 18 Blood Pressure 200/96 H 197/96 H 185/89 H Pulse Oximetry 100 98 98 05/04/21 16:39 Temperature Pulse Rate 65 Respiratory Rate 18 Blood Pressure 180/79 H Pulse Oximetry 98 MDM - Headache Lab Data Labs: Urine Dip Bedside Urine Glucose Negative Bedside Urine Bilirubin - Negative Bedside Urine Ketone - Negative Urine Specific [place] 1.010 Bedside Urine Occult Blood - Negative Bedside Urine pH 6.0 Bedside Urine Protein - Negative Bedside Urine Urobilinogen - Negative Bedside Urine Nitrite - Negative Bedside Urine Leukocytes - Negative Esterase MDM Narrative Medical decision making narrative: Patient does have a history of prostate issues. He did have lower abdominal fullness and tenderness. A Cantu was placed and he had approximately 1500 cc of urine. He states that his abdominal pain has improved/resolved. His headache is also improved/resolved. His blood pressure did improve somewhat. He has a follow-up with his urologist scheduled for approximately 10 days from now. We did discuss options to include leaving the Cantu catheter in in discharging him home and having a follow-up. Discussed the risks and benefits of this. We also discussed removing the catheter the risks and benefits of removal. He expressed understanding of this and would like to have the catheter removed. He will return if he starts to have symptoms of urinary retention again. I did inform him that he needed talk with his primary doctor about his blood pressure. He is going to continue all of his medications. He expressed understanding and agreement. Discharge Plan Departure Patient Disposition: Home Clinical Impression: Acute urinary retention, Headache, Hypertension Instructions: Essential Hypertension, DI for Urinary Retention in Men Activity Restrictions/Additional Instructions: After our discussion of the risks and benefits of leaving the Cantu catheter in versus having it removed to you opted to have the catheter removed. If you start to have worsening abdominal pain or feeling like you are not emptying her bladder than you do need to return to the emergency department for further evaluation. You also need to contact your primary doctor to discuss your elevated blood pressure. I do recommend you take your blood pressure on a daily basis at home and record the results and take them to your primary doctor for further evaluation to discuss starting on medications. Keep your appointment with your urologist. Prescriptions: No Action pantoprazole 40 mg tablet,delayed release (DR/EC) 40 mg PO DAILY 0RF tamsulosin 0.4 mg capsule 0.4 mg PO BEDTIME Qty: 180 3RF Referrals: Cecile Beach MD [Primary Care Provider] - Stand Alone Forms: Work Release Note
--- NOTE | 2021-05-04 15:42 | PC.NURSE ---
1300 cc initial output from catheter placement
[2021-05-04 16:28] VITALS: BP 185/89; PULSE 64; RESP 18; O2SAT 98
[2021-05-04 16:39] VITALS: BP 180/79; PULSE 65; RESP 18; O2SAT 98
== END 2021-05-04 16:39 | disposition home or self-care (01) ==
PROVIDERS: Emergency Provider Emergency Medicine
DX: R33.9 Retention of urine, unspecified (principal); I10 Essential (primary) hypertension; F17.200 Nicotine dependence, unspecified, uncomplicated
CPT/HCPCS: 51702; 51798; 81003; 99283; 99284

== ENCOUNTER 2021-06-05 11:04 | Emergency (ER) | payer OTHER, SELFPAY ==
[2020-09-10 23:06] VITALS: BMI 25.3
[2021-06-05] VITALS (19 sets, daily range): BP systolic 117–181; BP diastolic 67–94; PULSE 71–92; RESP 14–18; TEMP 36.1; O2SAT 86–98; BMI 25.3
--- NOTE | 2021-06-05 11:20 | ED_ITS ---
HPI - URI/Sore Throat General Chief Complaint: Upper Respiratory Symptoms Stated Complaint: covid +, coughing Time Seen by Provider: 06/05/21 11:20 Source: patient Mode of arrival: Ambulatory Limitations: no limitations History of Present Illness HPI Narrative: This is a 65-year-old male comes in with complaint of COVID infection. He states he has was diagnosed on the 30 of May he probably had symptoms sta rting on the . He has had general, occasional headache, he had nausea and vomiting initially but only has nausea now. He denies chest pain or pressure no shortness of breath. He has had cough that is been persistent but nonproductive. No diarrhea constipation. He has an indwelling Cantu catheter for prostate issues. He states it was changed over on the 27 of May. He follows with urology. He has not noticed any changes other than his urine being a little bit darker. Patient denies any known medical issues otherwise. He is not on any daily medications. He denies any major surgeries. No allergies other than [place] which causes nausea and vomiting. He does smoke regularly. He denies any alcohol recently, no illicit. He is accompanied by his . He notes that he was seen at [facility] on the or . He was given a prescription for Zofran. He states they called him up the next day and called in penicillin VK but he does not know what for and he has been taking it regularly since the . He denies any dental or oral health issues. He is unsure if he had an infection elsewhere that they treating. He does not know if they took a urine sample. Related Data Home Medications Medication Instructions Recorded Confirmed pantoprazole 40 mg tablet,delayed 40 mg PO DAILY tab 03/09/21 05/12/21 release Previous Rx's Medication Instructions Recorded tamsulosin 0.4 mg capsule 0.4 mg PO BEDTIME #180 cap 03/09/21 metoclopramide HCl 10 mg tablet 10 mg PO Q6H PRN #10 tab 06/05/21 (Reglan) Allergies Allergy/AdvReac Type Severity Reaction Status Date / Time amoxicillin AdvReac Mild Verified 05/12/21 09:22 Opioids - Morphine Analogues AdvReac Mild Vomiting Verified 05/12/21 09:22 Review of Systems Review of Systems ROS Unobtainable: All systems reviewed & are unremarkable except as noted in HPI and below Patient History Medical History Acid reflux BPH w urinary obs/LUTS Elevated PSA Incomplete bladder emptying Surgical History History of laparoscopic cholecystectomy Family History Mother Stroke Coronary artery disease Father No problems noted. Social History marital status: household members: spouse Previous occupational history: [employer] [facility] special anaya needs: No Smoking Status: Current every day smoker Tobacco: How many years used: 40 alcohol intake: former caffeine: Yes Smoking Status: Current every day smoker alcohol intake frequency: holidays/special occasions only Substance Use Type: does not use Exam Narrative Exam Narrative: GEN: well nourished, well appearing male, alert and oriented x 3, patient appears to be in mild distress. HEENT: Atraumatic, pupils are equal round reactive to light, extraocular movements are intact. HEART: Regular rate and rhythm without murmur, clicks, rubs. LUNGS:Lungs clear to auscultation, no wheezes, rales, crackles, chest moves symmetrically, no tachypnea accessory muscle use. Patient is not coughing while in the room. ABD:bowel sounds normal, soft, non-tender, no guarding, rebound, rigidity, no masses noted, no hepatosplenomegaly :No CVA tenderness MSCL: Non-tender, no swelling bilateral lower extremities, full range of motion NEURO:CN 2-12 intact, sensation normal SKIN: No rash or other skin changes. Initial Vital Signs Initial Vital Signs: Vital Signs Temperature 96.9 F L 06/05/21 11:41 Pulse Rate 86 06/05/21 11:41 Respiratory Rate 18 06/05/21 11:41 Blood Pressure 135/77 06/05/21 11:41 Pulse Oximetry 97 06/05/21 11:41 Course Orders Ordered: ED Orders 06/05/21 11:45 Chest [XR chest 1V] Stat 06/05/21 12:15 COVID19 -Nasal swab/Pre-Proc Stat Complete Blood Count AUTO DIFF Stat Comprehensive Metabolic Panel Stat Lipase Stat NT-proBNP (BNP-Adult 18+) Stat Troponin & CK Cardiac Panel Stat Discontinued Medications Sodium Chloride (Normal Saline 0.9%) 1,000 mls @ 1,000 mls/hr IV BOLUS ONE Stop: 06/05/21 15:18 Last Infusion: 06/05/21 15:13 Dose: 0 mls/hr Documented by: Infusion: 06/05/21 15:12 Dose: 0 mls/hr Documented by: Admin: 06/05/21 14:23 Dose: 1,000 mls/hr Documented by: AMBER Metoclopramide HCl (Metoclopramide 10 Mg/2 Ml Inj) 10 mg IV NOW ONE Stop: 06/05/21 15:46 Last Admin: 06/05/21 15:47 Dose: 10 mg Documented by: AMBER Ondansetron HCl (Ondansetron 4 Mg/2 Ml Inj) 4 mg IV NOW ONE Stop: 06/05/21 13:53 Last Admin: 06/05/21 13:55 Dose: Not Given Documented by: AMBER Ondansetron HCl (Ondansetron 4 Mg Odt) 4 mg SL NOW ONE Stop: 06/05/21 13:56 Last Admin: 06/05/21 13:57 Dose: 4 mg Documented by: AMBER Ondansetron HCl (Ondansetron 4 Mg Odt Prepack) 1 bottle MISC SEEINSTR ONE Stop: 06/05/21 17:19 Last Admin: 06/05/21 17:40 Dose: 1 bottle Documented by: AMBER Potassium Chloride (Potassium Chloride 20 Meq/15 Ml Udc) 40 meq PO NOW ONE Stop: 06/05/21 13:09 Last Admin: 06/05/21 13:57 Dose: Not Given Documented by: AMBER Reevaluation(s) Reevaluation #1: Patient, chest x-ray findings are reviewed. Patient was given a dose oral potassium and threw up. After re-evaluation patient states that he has been hav ing occasional emesis. Reevaluation #2: Patient received fluids, 2nd dose of antiemetic. Patient was able to tolerate his oral penicillin, putting and prefers to return home. We did discuss if he would like to do CT imaging of his abdomen and pelvis he has had this persistent but intermittent vomiting. Patient defers. We did discuss return precautions. Vital Signs Vital signs: Vital Signs - 8 hr 06/05/21 11:41 06/05/21 12:10 06/05/21 12:22 Temperature 96.9 F L Pulse Rate 86 92 H 76 Respiratory Rate 18 Blood Pressure 135/77 Pulse Oximetry 97 86 L 96 06/05/21 12:23 06/05/21 12:30 06/05/21 13:00 Temperature Pulse Rate 83 81 79 Respiratory Rate Blood Pressure 117/70 122/72 Pulse Oximetry 96 96 96 06/05/21 13:09 06/05/21 13:30 06/05/21 13:48 Temperature Pulse Rate 79 71 Respiratory Rate 16 Blood Pressure 132/77 181/94 H Pulse Oximetry 93 96 06/05/21 14:25 06/05/21 14:26 06/05/21 14:30 Temperature Pulse Rate 79 80 Respiratory Rate Blood Pressure 168/68 H Pulse Oximetry 96 93 94 06/05/21 14:31 06/05/21 15:00 06/05/21 15:30 Temperature Pulse Rate 81 78 85 Respiratory Rate Blood Pressure 121/71 137/70 147/81 H Pulse Oximetry 94 95 98 06/05/21 16:00 06/05/21 16:30 06/05/21 17:00 Temperature Pulse Rate 80 73 75 Respiratory Rate Blood Pressure 148/81 H 139/70 118/67 Pulse Oximetry 96 95 96 06/05/21 17:49 Temperature Pulse Rate 78 Respiratory Rate 14 Blood Pressure 118/67 Pulse Oximetry 97 MDM - URI/Sore Throat Lab Data Result diagrams: 06/05/21 12:15 06/05/21 12:15 Labs: Lab Results 06/05/21 06/05/21 06/05/21 Range/Units 12:15 12:15 12:15 WBC 9.8 (4.5-11.0) X10^3/uL RBC 4.69 (4.5-5.9) X10^6/uL Hgb 14.3 (13.5-17.5) g/dL Hct 40.9 L (41-53) % MCV 87.3 (80-100) fL MCH 30.4 (26-34) PG MCHC 34.9 (30-36) % RDW 14.3 (11.6-14.8) % Plt Count 279 (150-400) X10^3/uL Neut % (Auto) 76.7 H (50-75) % Lymph % (Auto) 14.4 L (25-40) % [place] % (Auto) 7.6 (3-14) % Eos % (Auto) 0.9 L (2-4) % Baso % (Auto) 0.4 (0-2) % Neut # (Auto) 7500 H (5984-7240) /uL Lymph # (Auto) 1400 (6724-5084) /uL [place] # (Auto) 700 (0-900) /uL Eos # (Auto) 100 (0-450) /uL Baso # (Auto) 0 (0-100) /uL Sodium 140 (137-145) mmol/L Potassium 3.3 L (3.4-5.1) mmol/L Chloride 104 (98-107) mmol/L Carbon Dioxide 29 (22-32) mmol/L BUN 15 (9-20) mg/dL Creatinine 0.89 (0.66-1.25) mg/dL Estimated GFR > 60.0 (>60) mL/min BUN/Creatinine Ratio 16.9 (6-22) Glucose 115 H (80-110) mg/dL Calcium 8.8 (8.4-10.2) mg/dL Total Bilirubin 0.6 (0.2-1.3) mg/dL AST 27 (17-59) IU/L ALT 19 (<50) IU/L Alkaline Phosphatase 91 (38-126) U/L Total Creatine Kinase 27 L (55-170) U/L CK-MB (CK-2) TNP CK-MB (CK-2) Rel Index TNP Troponin I < 0.012 (0.01-0.034) ng/mL NT-Pro-B Natriuret Pep 125 H (<125) pg/mL Total Protein 6.8 (6.3-8.2) g/dL Albumin 3.2 L (3.5-5.0) g/dL Globulin 3.6 (1.7-4.1) g/dL Albumin/Globulin Ratio 0.9 L (1.0-2.8) Lipase (23-300) U/L SARS-CoV-2 (PCR) Positive H (Negative) 06/05/21 Range/Units 12:15 WBC (4.5-11.0) X10^3/uL RBC (4.5-5.9) X10^6/uL Hgb (13.5-17.5) g/dL Hct (41-53) % MCV (80-100) fL MCH (26-34) PG MCHC (30-36) % RDW (11.6-14.8) % Plt Count (150-400) X10^3/uL Neut % (Auto) (50-75) % Lymph % (Auto) (25-40) % [place] % (Auto) (3-14) % Eos % (Auto) (2-4) % Baso % (Auto) (0-2) % Neut # (Auto) (6314-8014) /uL Lymph # (Auto) (6119-3175) /uL [place] # (Auto) (0-900) /uL Eos # (Auto) (0-450) /uL Baso # (Auto) (0-100) /uL Sodium (137-145) mmol/L Potassium (3.4-5.1) mmol/L Chloride (98-107) mmol/L Carbon Dioxide (22-32) mmol/L BUN (9-20) mg/dL Creatinine (0.66-1.25) mg/dL Estimated GFR (>60) mL/min BUN/Creatinine Ratio (6-22) Glucose (80-110) mg/dL Calcium (8.4-10.2) mg/dL Total Bilirubin (0.2-1.3) mg/dL AST (17-59) IU/L ALT (<50) IU/L Alkaline Phosphatase (38-126) U/L Total Creatine Kinase (55-170) U/L CK-MB (CK-2) CK-MB (CK-2) Rel Index Troponin I (0.01-0.034) ng/mL NT-Pro-B Natriuret Pep (<125) pg/mL Total Protein (6.3-8.2) g/dL Albumin (3.5-5.0) g/dL Globulin (1.7-4.1) g/dL Albumin/Globulin Ratio (1.0-2.8) Lipase 34 (23-300) U/L SARS-CoV-2 (PCR) (Negative) Imaging Data Chest x-ray: Radiologist's Impression: [address] [address] XRay Report Signed Patient: Shay Ayala MR#: [id number] : 1955 Acct:[id number] Age/Sex: 65 / M Date of Service: 06/05/21 Loc: ED Accession Number: [id number] ?? Procedure: XR chest 1V Ordering Provider: Frieda Larios D.O. PROCEDURE:? XR CHEST 1V ? INDICATIONS:? COVID + last week, cough ? TECHNIQUE:? One view of the chest was acquired.? ? COMPARISON:? [facility], CR, XR CHEST 1V, 12/05/2020, 9:30. ? FINDINGS:? ? Surgical changes and devices:? None.? ? Lungs and pleura:? Lungs are clear.? No pleural effusions or pneumothorax.? ? Mediastinum:? Mediastinal contours appear normal.? Heart size is normal.? ? Bones and chest wall:? No suspicious bony lesions.? Age-appropriate bony degenerative changes are seen. ? Overlying soft tissues appear unremarkable.? ? ? IMPRESSION:? Unremarkable portable chest, without pranay infiltrates. ? If there is clinical concern for a developing pulmonary process, a short-term followup chest series (with PA and lateral views, performed in deep inspiration) is suggested for further evaluation. ? ? ? Dictated by: Fer Webb M.D. on 06/05/2021 at 11:12 ? ? Approved by: Fer Webb M.D. on 06/05/2021 at 11:13?? MDM Narrative Medical decision making narrative: We were able to obtain patient's chart from [facility] [place] for his recent visit on the . Appears that penicillin was called in secondary to positive urine culture although suspected may be chronic indwelling Cantu catheter a prescription was called in for the potential UTI. This is a 65-year-old male who is COVID positive week ago it would be Hospital who was also seen for hips and given Zofran. Patient states he has had some intermittent vomiting. But states it had stopped although here in the department he had an episode of emesis was not able to tolerate his oral potassium. His chest x-ray and lab work were reviewed. Patient had a 2nd dose of antinausea medicine and a L of fluids. We discussed CT abdomen pelvis but he defers at this time if he does not have persistent vomiting. He was able to tolerate his oral penicillin from home as well as putting and fluids and plan for discharge with a short course of antiemetic. Patient and I did discuss his return precautions. All questions answered. Discharge Plan Departure Patient Disposition: Home Clinical Impression: COVID-19 virus infection, Nausea and vomiting Instructions: DI for COVID-19 (Suspected or Confirmed ) Activity Restrictions/Additional Instructions: *You have been diagnosed with COVID infection If you wish you may obtain a pulse oximeter for use at home to monitor. Please return to the ER if your pulse oximeter shows an O2 saturation less than 90%. Return for fevers, worsening chest pain or shortness of breath, persistent vomiting, black or bloody stools or other new or concerning symptoms. You may take anti-nausea as prescribed take 1 tablet every 6 hours as needed. Prescription sent to [facility] in [place]. You may take Tylenol and/or ibuprofen as needed for fevers. [id number] cough medications are appropriate. Your potassium was slightly low. *What to do: * per recommendations from the CDC and the [facility] Department of Health * stay home except to get medical care. Restrict activities outside your home, except for getting medical care. Do not go to work, school, or public areas. Avoid using public transportation, ride sharing, or taxis. * separate yourself from other people in your home. * call ahead before visiting your doctor * Wear a face mask * Cover your coughs and sneezes * Clean your hands often * Avoid sharing household items * Clean all high-touch services every day * Monitor your symptoms and seek prompt medical attention if your illness is worsening, particularly with difficulty in breathing. Discussed continuing home isolation * for individuals with symptoms who are confirmed or suspected cases of COVID-19 and are directed to care for themselves at home, discontinue home isolation under the following conditions: 1. At least 72 hours have passed since recovery, defined as resolution of fever without the use of fever reducing medications, and improvement in respiratory symptoms (cough, shortness of breath) AND, 2. At least 7 days have passed since symptoms 1st appeared Individuals with laboratory confirmed COVID-19 who have not had any symptoms may discontinue home isolation when at least 7 days have passed since the date of their 1st COVID-19 diagnostic test and have had no subsequent illness Prescriptions: New metoclopramide HCl [Reglan] 10 mg tablet 10 mg PO Q6H PRN (Reason: nausea and vomiting) Qty: 10 0RF No Action pantoprazole 40 mg tablet,delayed release (DR/EC) 40 mg PO DAILY 0RF tamsulosin 0.4 mg capsule 0.4 mg PO BEDTIME Qty: 180 3RF Referrals: Cecile Beach MD [Primary Care Provider] -
--- NOTE | 2021-06-05 11:45 | DI.RAD.S_ITS ---
PROCEDURE: XR CHEST 1V INDICATIONS: COVID + last week, cough TECHNIQUE: One view of the chest was acquired. COMPARISON: [facility], CR, XR CHEST 1V, 12/05/2020, 9:30. FINDINGS: Surgical changes and devices: None. Lungs and pleura: Lungs are clear. No pleural effusions or pneumothorax. Mediastinum: Mediastinal contours appear normal. Heart size is normal. Bones and chest wall: No suspicious bony lesions. Age-appropriate bony degenerative changes are seen. Overlying soft tissues appear unremarkable. IMPRESSION: Unremarkable portable chest, without pranay infiltrates. If there is clinical concern for a developing pulmonary process, a short-term followup chest series (with PA and lateral views, performed in deep inspiration) is suggested for further evaluation. Dictated by: Fer Webb M.D. on 06/05/2021 at 11:12 Approved by: Fer Webb M.D. on 06/05/2021 at 11:13
[2021-06-05 12:36] LABS: Add Manual Diff / Slide Review NO; Basophils Absolute Auto 0 /uL (0-100); Basophils Percent Auto 0.4 % (0-2); Eosinophils Absolute Auto 100 /uL (0-450); Eosinophils Percent Auto 0.9 % (2-4); Hematocrit 40.9 % (41-53); Hemoglobin 14.3 g/dL (13.5-17.5); Lymphocytes Absolute Auto 1400 /uL (1100-4500); Lymphocytes Percent Auto 14.4 % (25-40); Mean Corpuscular HGB Conc 34.9 % (30-36); Mean Corpuscular Hemoglobin 30.4 PG (26-34); Mean Corpuscular Volume 87.3 fL (80-100); Monocytes Absolute Auto 700 /uL (0-900); Monocytes Percent Auto 7.6 % (3-14); Neutrophils Absolute Auto 7500 /uL (1500-7000); Neutrophils Percent Auto 76.7 % (50-75); Platelet Count 279 X10^3/uL (150-400); Red Blood Cell Count 4.69 X10^6/uL (4.5-5.9); Red Cell Distribution Width 14.3 % (11.6-14.8); White Blood Cell Count 9.8 X10^3/uL (4.5-11.0)
[2021-06-05 12:47] LABS: Alanine Aminotransferase 19 IU/L (<50); Albumin 3.2 g/dL (3.5-5.0); Albumin Globulin Ratio 0.9 (1.0-2.8); Alkaline Phosphatase 91 U/L (38-126); Aspartate Aminotransferase 27 IU/L (17-59); BUN Creatinine Ratio 16.9 (6-22); Bilirubin Total 0.6 mg/dL (0.2-1.3); Blood Urea Nitrogen 15 mg/dL (9-20); Calcium 8.8 mg/dL (8.4-10.2); Carbon Dioxide 29 mmol/L (22-32); Chloride 104 mmol/L (98-107); Creatine Kinase 27 U/L (55-170); Estimated Glomerular Filt Rate > 60.0 mL/min (>60); Globulin 3.6 g/dL (1.7-4.1); Glucose 115 mg/dL (80-110); HEMOLYSIS 15 (0-50); Potassium 3.3 mmol/L (3.4-5.1); Sodium 140 mmol/L (137-145); Total Protein 6.8 g/dL (6.3-8.2)
[2021-06-05 12:59] LABS: NT-proBNP (BNP-Adult 18+) 125 pg/mL (<125); Troponin I < 0.012 ng/mL (0.01-0.034)
[2021-06-05 13:04] LABS: COVID19 -Nasal RAPID POSITIVE (Negative)
[2021-06-05] MEDS: ONDANSETRON 4 MG ODT SL (13:57)
[2021-06-05 14:10] LABS: Lipase 34 U/L (23-300)
[2021-06-05] MEDS: SODIUM CHLORIDE 0.9% 1,000 ML 1000 ML IV (14:23)
[2021-06-05] MEDS: METOCLOPRAMIDE 10 MG/2 ML INJ IV (15:47)
[2021-06-05] MEDS: ONDANSETRON 4 MG ODT PREPACK 1 BOTTLE MISC (17:40)
== END 2021-06-05 17:54 | disposition home or self-care (01) ==
PROVIDERS: Emergency Provider Emergency Medicine
DX: U07.1 COVID-19 (principal); R11.2 Nausea with vomiting, unspecified; F17.200 Nicotine dependence, unspecified, uncomplicated
CPT/HCPCS: 36415; 71045; 80053; 82550; 83690; 83880; 84484; 85025; 87635; 96361; 96374; 99284; C9803; J2765

== ENCOUNTER → 2021-06-23 09:43 | Outpatient (CLI) | payer OTHER, SELFPAY ==
[2020-09-10 23:06] VITALS: BMI 25.3
== END ==
PROVIDERS: Visit Provider Specialist
DX: R30.0 Dysuria (principal); R33.8 Other retention of urine
CPT/HCPCS: 51702; 87077; 87086; 87185; 87186

== ENCOUNTER → 2021-07-22 08:54 | Outpatient (CLI) | payer OTHER, SELFPAY ==
[2021-07-21 14:13] VITALS: BMI 25.3
== END ==
PROVIDERS: Visit Provider Specialist
DX: R30.0 Dysuria (principal); R33.8 Other retention of urine
CPT/HCPCS: 51701; 51798; 81002; 87086

== ENCOUNTER 2021-08-11 17:33 | Observation (INO) | payer OTHER, SELFPAY ==
[2021-07-21 14:13] VITALS: BMI 25.3
[2021-08-11] VITALS (11 sets, daily range): BP systolic 111–138; BP diastolic 58–67; PULSE 54–89; RESP 14–18; TEMP 36.4–37.7; O2SAT 94–100; BMI 24.2
[2021-08-11] MEDS: ONDANSETRON 4 MG ODT SL (18:35)
--- NOTE | 2021-08-11 19:36 | PC.NURSE ---
pr reports [place] today with some dizziness has indwelling cath which is changed every month last change was 3/3 he reports some brown stuff and some blood last night which has resolved
--- NOTE | 2021-08-11 20:03 | ED_ITS ---
HPI - Nausea/Vomiting/Diarrhea General Chief complaint: Nausea/Vomiting/Diarrhea Stated complaint: Headache, vomiting- started new meds Time Seen by Provider: 08/11/21 20:03 Source: patient Mode of arrival: Ambulatory History of Present Illness HPI Narrative: 65-year-old gentleman with a history of reflux and BPH comes in complaining of a headache, some right eye blurriness, shakiness today reports that he feels ?like crap? achy all over, episode of emesis, increasing dizziness some difficulty in walking feeling like his right side is a bit off and he leans toward the right. He does not report any temperatures, no cough no abdominal pain or diarrhea. He does not have a history of migraine headache. He does report that he had been seen at [facility] about [address] scan done showing ?a little something on the left side of his brain? but there was no follow-up because of COVID. His primary care provider is on [facility] Related Data Previous Rx's Medication Instructions Recorded tamsulosin 0.4 mg capsule 0.4 mg PO BEDTIME #180 cap 03/09/21 metoclopramide HCl 10 mg tablet 10 mg PO Q6H PRN #10 tab 06/05/21 (Reglan) ciprofloxacin HCl 250 mg tablet 250 mg PO BID #4 tab 07/21/21 (Cipro) Allergies Allergy/AdvReac Type Severity Reaction Status Date / Time amoxicillin AdvReac Mild Verified 07/21/21 08:13 Opioids - Morphine Analogues AdvReac Mild Vomiting Verified 07/21/21 08:13 Review of Systems Review of Systems Narrative: Remainder of complete review of systems is otherwise unremarkable except for that included in the HPI. Patient History Medical History Acid reflux BPH w urinary obs/LUTS Elevated PSA History of COVID-19 Urinary retention Surgical History History of laparoscopic cholecystectomy Hx of cholecystectomy Hx of hernia repair Family History Mother Stroke Coronary artery disease Father No problems noted. 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[employer] special anaya needs: No Smoking Status: Current every day smoker Tobacco: How many years used: 40 alcohol intake: former caffeine: Yes Smoking Status: Current every day smoker tobacco type: cigarettes alcohol intake frequency: holidays/special occasions only Substance Use Type: does not use Exam Initial Vital Signs Initial Vital Signs: Vital Signs Temperature 99.9 F H 08/11/21 17:53 Pulse Rate 89 08/11/21 17:53 Respiratory Rate 16 08/11/21 17:53 Blood Pressure 136/64 08/11/21 17:53 Pulse Oximetry 98 08/11/21 17:53 General: Healthy appearing, in no acute distress. Able to give a complete and coherent history. Well-nourished well-developed HEENT: Moist mucous membranes, normal sclera with reactive pupils, extraocular eye movement is intact. Peripheral vision intact and symmetrical Neck: No JVD, supple Respiratory: Lungs with mild scattered wheeze in all lung nesbitt, no significant rhonchi. Full and symmetrical air movement Cardiac: Regular rate and rhythm no murmurs no bruits Abdomen: Soft, nontender, good bowel tones, no flank pain Skin: Warm and dry, no rashes Neurologic: Mild weakness in the right upper extremity with some mild ataxia/difficulty with [id number] on the right side. No sensory changes. When walking, he does ?list? to the right side and is unable to stand or balance on his right leg alone. He is able to do so on the left side. Facial nerves are intact there is no asymmetry or weakness. Tongue does not deviate when extended. Speech is fluent without any dysarthria. NIH=1 for the finger to nose. Weakness in right arm and leg are present but technically still score 0 on NIH testing Extremities: No trauma, well perfused Psych: Cooperative, appropriate insight and affect Course Orders Ordered: ED Orders 08/11/21 20:20 CT head/brain wo con Stat 08/11/21 20:22 Complete Blood Count AUTO DIFF Stat Comprehensive Metabolic Panel Stat Magnesium Stat 08/11/21 21:57 COVID19 -Nasal swab/Pre-Proc Stat 08/11/21 22:01 MR head/brain wo/w con Stat Acetaminophen (Acetaminophen 325 Mg Tablet) 650 mg PO Q6HR PRN PRN Reason: Fever/Mild Pain (1-3) Aspirin (Aspirin Ec 81 Mg Tablet) 81 mg PO DAILY [facility] Atorvastatin Calcium (Atorvastatin 20 Mg Tablet) 80 mg PO BEDTIME [facility] Clopidogrel Bisulfate (Clopidogrel 75 Mg Tablet) 75 mg PO DAILY [facility] Enoxaparin Sodium (Enoxaparin 40 Mg/0.4 Ml Syringe) 40 mg SUBCUT DAILY [facility] Sodium Chloride (Normal Saline 0.9%) 1,000 mls @ 100 mls/hr IV CONT MARYELLEN Naloxone HCl (Naloxone 0.4 Mg/Ml Vial) 0.2 mg IV Q2MIN PRN PRN Reason: Opiate Reversal Ondansetron HCl (Ondansetron 4 Mg/2 Ml Inj) 4 mg IV Q8HR PRN PRN Reason: Nausea And Vomiting Discontinued Medications Acetaminophen (Acetaminophen 325 Mg Tablet) 975 mg PO NOW ONE Stop: 08/11/21 20:20 Last Admin: 08/11/21 20:33 Dose: 975 mg Documented by: MORIS Sodium Chloride (Normal Saline 0.9%) 1,000 mls @ 1,000 mls/hr IV BOLUS ONE Stop: 08/11/21 21:18 Last Infusion: 08/11/21 22:16 Dose: 0 mls/hr Documented by: Admin: 08/11/21 20:55 Dose: 1,000 mls/hr Documented by: MORIS Metoclopramide HCl (Metoclopramide 10 Mg/2 Ml Inj) 5 mg IV NOW ONE Stop: 08/11/21 20:20 Last Admin: 08/11/21 20:34 Dose: 5 mg Documented by: MORIS Ondansetron HCl (Ondansetron 4 Mg Odt) 4 mg SL NOW ONE Stop: 08/11/21 18:30 Last Admin: 08/11/21 18:35 Dose: 4 mg Documented by: RODOLFO Vital Signs Vital signs: Vital Signs - 8 hr 08/11/21 19:38 08/11/21 20:23 08/11/21 20:30 Pulse Rate 78 77 76 Respiratory Rate 14 Blood Pressure 138/65 Pulse Oximetry 98 99 100 08/11/21 21:04 08/11/21 21:30 08/11/21 21:43 Pulse Rate 74 75 71 Respiratory Rate Blood Pressure 111/58 L Pulse Oximetry 99 99 98 08/11/21 22:00 08/11/21 22:30 Pulse Rate 77 70 Respiratory Rate Blood Pressure Pulse Oximetry 97 98 MDM - Nausea/Vomiting/Diarrhea Lab Data Result diagrams: 08/11/21 20:22 08/11/21 20:22 Labs: Lab Results 08/11/21 08/11/21 08/11/21 Range/Units 20:22 20:22 20:22 WBC 7.1 (4.5-11.0) X10^3/uL RBC 4.06 L (4.5-5.9) X10^6/uL Hgb 12.5 L (13.5-17.5) g/dL Hct 36.5 L (41-53) % MCV 89.9 (80-100) fL MCH 30.7 (26-34) PG MCHC 34.1 (30-36) % RDW 14.9 H (11.6-14.8) % Plt Count 209 (150-400) X10^3/uL Neut % (Auto) 82.3 H (50-75) % Lymph % (Auto) 10.9 L (25-40) % [place] % (Auto) 5.8 (3-14) % Eos % (Auto) 0.2 L (2-4) % Baso % (Auto) 0.8 (0-2) % Neut # (Auto) 5900 (7009-3749) /uL Lymph # (Auto) 800 L (1090-9978) /uL [place] # (Auto) 400 (0-900) /uL Eos # (Auto) 0 (0-450) /uL Baso # (Auto) 100 (0-100) /uL Sodium 136 L (137-145) mmol/L Potassium 3.9 (3.4-5.1) mmol/L Chloride 106 (98-107) mmol/L Carbon Dioxide 26 (22-32) mmol/L BUN 12 (9-20) mg/dL Creatinine 0.90 (0.66-1.25) mg/dL Estimated GFR > 60.0 (>60) mL/min BUN/Creatinine Ratio 13.3 (6-22) Glucose 106 (80-110) mg/dL Hemoglobin A1c 5.0 (4.0-6.0) % Calcium 8.8 (8.4-10.2) mg/dL Magnesium 1.9 (1.6-2.3) mg/dL Total Bilirubin 0.5 (0.2-1.3) mg/dL AST 21 (17-59) IU/L ALT 11 (<50) IU/L Alkaline Phosphatase 81 (38-126) U/L Total Protein 6.9 (6.3-8.2) g/dL Albumin 3.5 (3.5-5.0) g/dL Globulin 3.4 (1.7-4.1) g/dL Albumin/Globulin Ratio 1.0 (1.0-2.8) TSH (0.47-4.68) uIU/mL SARS-CoV-2 (PCR) (Negative) 08/11/21 08/11/21 Range/Units 20:22 21:57 WBC (4.5-11.0) X10^3/uL RBC (4.5-5.9) X10^6/uL Hgb (13.5-17.5) g/dL Hct (41-53) % MCV (80-100) fL MCH (26-34) PG MCHC (30-36) % RDW (11.6-14.8) % Plt Count (150-400) X10^3/uL Neut % (Auto) (50-75) % Lymph % (Auto) (25-40) % Ber[place] % (Auto) (3-14) % Eos % (Auto) (2-4) % Baso % (Auto) (0-2) % Neut # (Auto) (5340-5782) /uL Lymph # (Auto) (7244-2658) /uL Ber[place]hire # (Auto) (0-900) /uL Eos # (Auto) (0-450) /uL Baso # (Auto) (0-100) /uL Sodium (137-145) mmol/L Potassium (3.4-5.1) mmol/L Chloride (98-107) mmol/L Carbon Dioxide (22-32) mmol/L BUN (9-20) mg/dL Creatinine (0.66-1.25) mg/dL Estimated GFR (>60) mL/min BUN/Creatinine Ratio (6-22) Glucose (80-110) mg/dL Hemoglobin A1c (4.0-6.0) % Calcium (8.4-10.2) mg/dL Magnesium (1.6-2.3) mg/dL Total Bilirubin (0.2-1.3) mg/dL AST (17-59) IU/L ALT (<50) IU/L Alkaline Phosphatase (38-126) U/L Total Protein (6.3-8.2) g/dL Albumin (3.5-5.0) g/dL Globulin (1.7-4.1) g/dL Albumin/Globulin Ratio (1.0-2.8) TSH 0.71 (0.47-4.68) uIU/mL SARS-CoV-2 (PCR) Negative (Negative) Imaging Data CT scan of the head 12/15/2019: Radiologist's Impression: No hydrocephalus, no discrete area of ischemic injury or trauma is found. Ovoid region of calcifications stable from [id number] and 12/15/2019. Notes from the 03/29/2019 scan indicate concern for mass lesion as the underlying cause and neuro surgical consultation was recommended. Scan was done it would [facility], read by Josh Duran MD 12/15/2019 Today's exam: FINDINGS:? Image quality:? Excellent.? ? CSF spaces:? Basal cisterns are patent.? No extra-axial fluid collections.? There is mild dilatation of the ventricles which may reflect cerebral volume loss or mild hydrocephalus. ? Brain:? No intracranial hemorrhage or mass effect.? There are clustered calcifications in the posterior fossa along the midline within the inferior aspect of the cere bellar vermis where there is associated soft tissue prominence.? Arora-white matter interface appears preserved.? ? Skull and face:? Calvarium and visualized facial bones are intact, without suspicious lesions.? ? Sinuses:? Visualized sinuses and mastoids are clear.? ? IMPRESSION:? ? 1. No intracranial hemorrhage or mass effect. ? 2. Clustered calcifications within the inferior aspect of the cerebellar vermis with associated mild soft tissue prominence.? The findings may reflect sequelae of prior infection but the differential includes a soft tissue neoplasm.? Recommend further evaluation with a contrast enhanced MRI. ? 3.? Mild dilatation of the ventricles likely reflecting mild cerebral volume loss but the differential includes mild hydrocephalus secondary to mass effect on the 4th ventricle.? Evaluation may also be obtained with MRI if clinically indicated.? ? ? Dictated by: Lopez Post M.D. on 08/11/2021 at 21:10 MDM Narrative Medical decision making narrative: 65-year-old gentleman presents with complaints of headache nausea weakness blurry vision and right-sided ?list?. It appears that he had similar complaints and was seen December of 2018, March of 2019 in November of 2019 at [facility]. CT scans did not suggest stroke but neurosurgical consultation and MRI follow- up were recommended. Does not appear that any of that follow-up happened. CT scan today shows clustered calcifications within that your inferior aspect of the cerebellar vermis with associated mild soft tissue prominence may reflect sequelae of prior infection but differential includes soft tissue neoplasm recommend MRI. This time he very clearly has mild right-sided weakness and waxing and waning visual deficit. Whether this is a stroke, neoplasm or complex migraine is unclear. I do believe that an MRI is going to be appropriate. Based on MRI results continued workup for neoplasm or stroke or complex migraine if symptoms have all entirely resolved. There is no sign of infection, encephalitis or meningitis and no indication for lumbar puncture at this time. Will review his care with the hospitalist. Recommendations have been reviewed with the patient and he is amenable to hospital stay as well as MRI study. Discharge Plan Departure Patient Disposition: Admitted as Observation Clinical Impression: Acute right-sided muscle weakness, Alteration in vision, Headache Admit Date/Time: 08/11/21 22:35 Admit Provider: Joie Gonzalez
--- NOTE | 2021-08-11 20:20 | DI.CT.S_ITS ---
PROCEDURE: CT HEAD/BRAIN WO CON INDICATIONS: right side weakness, headache TECHNIQUE: Noncontrast 4.5 mm thick angled axial sections acquired from the foramen magnum to the vertex, with coronal and sagittal reformats. For radiation dose reduction, the following was used: automated exposure control, adjustment of mA and/or kV according to patient size. COMPARISON: None available. FINDINGS: Image quality: Excellent. CSF spaces: Basal cisterns are patent. No extra-axial fluid collections. There is mild dilatation of the ventricles which may reflect cerebral volume loss or mild hydrocephalus. Brain: No intracranial hemorrhage or mass effect. There are clustered calcifications in the posterior fossa along the midline within the inferior aspect of the cerebellar vermis where there is associated soft tissue prominence. Arora-white matter interface appears preserved. Skull and face: Calvarium and visualized facial bones are intact, without suspicious lesions. Sinuses: Visualized sinuses and mastoids are clear. IMPRESSION: 1. No intracranial hemorrhage or mass effect. 2. Clustered calcifications within the inferior aspect of the cerebellar vermis with associated mild soft tissue prominence. The findings may reflect sequelae of prior infection but the differential includes a soft tissue neoplasm. Recommend further evaluation with a contrast enhanced MRI. 3. Mild dilatation of the ventricles likely reflecting mild cerebral volume loss but the differential includes mild hydrocephalus secondary to mass effect on the 4th ventricle. Evaluation may also be obtained with MRI if clinically indicated. Dictated by: Lopez Post M.D. on 08/11/2021 at 21:10 Approved by: Lopez Post M.D. on 08/11/2021 at 21:17
[2021-08-11 20:32] LABS: Add Manual Diff / Slide Review NO; Basophils Absolute Auto 100 /uL (0-100); Basophils Percent Auto 0.8 % (0-2); Eosinophils Absolute Auto 0 /uL (0-450); Eosinophils Percent Auto 0.2 % (2-4); Hematocrit 36.5 % (41-53); Hemoglobin 12.5 g/dL (13.5-17.5); Lymphocytes Absolute Auto 800 /uL (1100-4500); Lymphocytes Percent Auto 10.9 % (25-40); Mean Corpuscular HGB Conc 34.1 % (30-36); Mean Corpuscular Hemoglobin 30.7 PG (26-34); Mean Corpuscular Volume 89.9 fL (80-100); Monocytes Absolute Auto 400 /uL (0-900); Monocytes Percent Auto 5.8 % (3-14); Neutrophils Absolute Auto 5900 /uL (1500-7000); Neutrophils Percent Auto 82.3 % (50-75); Platelet Count 209 X10^3/uL (150-400); Red Blood Cell Count 4.06 X10^6/uL (4.5-5.9); Red Cell Distribution Width 14.9 % (11.6-14.8); White Blood Cell Count 7.1 X10^3/uL (4.5-11.0)
[2021-08-11] MEDS: ACETAMINOPHEN 325 MG TABLET 975 MG PO (20:33)
[2021-08-11] MEDS: METOCLOPRAMIDE 10 MG/2 ML INJ 5 MG IV (20:34)
[2021-08-11 20:46] LABS: Alanine Aminotransferase 11 IU/L (<50); Albumin 3.5 g/dL (3.5-5.0); Alkaline Phosphatase 81 U/L (38-126); Aspartate Aminotransferase 21 IU/L (17-59); BUN Creatinine Ratio 13.3 (6-22); Bilirubin Total 0.5 mg/dL (0.2-1.3); Blood Urea Nitrogen 12 mg/dL (9-20); Calcium 8.8 mg/dL (8.4-10.2); Carbon Dioxide 26 mmol/L (22-32); Chloride 106 mmol/L (98-107); Estimated Glomerular Filt Rate > 60.0 mL/min (>60); Globulin 3.4 g/dL (1.7-4.1); Glucose 106 mg/dL (80-110); HEMOLYSIS < 15 (0-50); Magnesium 1.9 mg/dL (1.6-2.3); Potassium 3.9 mmol/L (3.4-5.1); Sodium 136 mmol/L (137-145); Total Protein 6.9 g/dL (6.3-8.2)
[2021-08-11] MEDS: SODIUM CHLORIDE 0.9% 1,000 ML 1000 ML IV (20:55)
[2021-08-11 22:23] LABS: COVID19 -Nasal RAPID Negative (Negative)
--- NOTE | 2021-08-11 23:28 | DI.MRI.S_ITS ---
PROCEDURE: MR STROKE Pre- and post-contrast brain MRI, non-contrast brain MR angiogram, pre- and postcontrast neck MR angiogram INDICATIONS: New onset visual change, right sided weakness TECHNIQUE: Brain: Noncontrast axial T1 spin echo, axial T2 fast spin echo, sagittal and axial FLAIR, coronal T2 fast spin echo, axial gradient echo, axial diffusion and ADC through the brain. After the administration of contrast, axial 3D VIBE of the cranial vasculature and brain. Brain MRA: Non-contrast 3-D time of flight MR angiogram, with multiple xizgulq-xmpcgmhzo-pxiphcypey (MIP) reformats performed. Neck MRA: Axial and sagittal TruFISP through the neck. Coronal dynamic MR angiogram during administration of contrast in the arterial and venous phases, with 3-dimenstional eqsywtx-cljpeunat-jdhvbotbah (MIP) reformats constructed from subtraction images. COMPARISON: [facility], CT, CT HEAD/BRAIN WO CON, 08/11/2021, 20:59. FINDINGS: Image quality: Diagnostic, with note made of motion artifact. BRAIN: CSF spaces: Ventricles are normal in size and shape for age. Basal cisterns are patent. No extra-axial fluid collections. Brain: No intracranial bleeds or mass effects. No masses or abnormal enhancement can be seen within the cerebellar vermis. Mild susceptibility artifact can be seen at this site. No masses or abnormal enhancement can be seen elsewhere. Arora-white matter interface is normal. Diffusion weighted images show no acute ischemic insults. Brainstem appears normal. Normal intravascular flow voids are present. No abnormal intracranial enhancement. Note is made of age-appropriate brain parenchymal volume loss and chronic small vessel ischemic changes. Skull and face: Calvarial marrow signal is normal. Orbits appear normal. Sinuses: There is a mucous retention cyst seen within the right maxillary sinus. Sinuses and mastoids are otherwise clear. [id number]-xl-nemdafvh leftward nasal septal deviation is seen. BRAIN MR ANGIOGRAM: Anterior circulation: Intracranial internal carotid arteries are normal in size and enhancement. The flow within the paired anterior cerebral arteries is normal and symmetric. The flow within the middle cerebral arteries is normal and symmetric. The anterior communicating artery is seen. No stenoses, occlusions, or aneurysms. Posterior circulation: The visualized portions of the vertebral arteries demonstrate normal caliber, and join to form a normal appearing basilar artery. The flow within the posterior cerebral arteries is normal and symmetric. No stenoses, occlusions, or aneurysms. NECK MR ANGIOGRAM: Carotids: The calibers and courses of both common carotid arteries are normal. The bifurcation regions appear normal bilaterally. The internal carotid arteries demonstrate normal course and caliber. Posterior circulation: The origins of the vertebral arteries appear patent. More superior portions of both vertebral arteries demonstrate normal course and caliber, and join to form a normal appearing basilar artery. Miscellaneous: Subclavian arteries appear patent. Pre-contrast images through the neck show no soft tissue abnormalities. IMPRESSION: BRAIN MRI: No findings of acute or subacute infarction can be seen. Note is made of age-appropriate brain parenchymal volume loss and chronic small vessel ischemic changes. No masses are seen within the cerebellar vermis, where focal calcification can be seen on CT. BRAIN MR ANGIOGRAM: No significant intracranial arterial abnormality is seen. NECK MR ANGIOGRAM: Within the arteries of the neck, no hemodynamically significant stenosis can be seen. Dictated by: Fer Webb M.D. on 08/12/2021 at 10:16 Approved by: Fer Webb M.D. on 08/12/2021 at 10:20
[2021-08-12 00:14] VITALS: BMI 24.2
--- NOTE | 2021-08-12 00:15 | P.HP_ITS ---
History of Present Illness History of Present Illness Date Patient Seen: 08/12/21 Time Patient Seen: 00:15 Chief complaint: Headache, vomiting- started new meds Narrative: Shay Ayala is a 65 y.o. male with the current condition of urinary retention requiring a chronic indwelling Cantu catheter and bag presented to the emergency department today with generalized weakness, he had a low-grade fever on presentation, he does endorse having nasal congestion particularly worse in the morning, of which the generalized weakness and feeling ?blah? has been going on for 2 days. The emergency department provider did state he complained of visual blurriness however when the patient arrived to the room he denies any visual changes, he does were glasses. He denies subjective fever, he does have a headache and nasal congestion, denies shortness of breath, he has a little bit of diffuse left-sided chest and abdominal pain, denies nausea vomiting, denies diarrhea or constipation, denies any numbing or tingling of his upper or lower extremities. was noted to have a mild fever of 99.9. He denies any sick contacts. He does have a history of having had COVID in May of this year and had the Jony & Jony vaccine but no booster. He does endorse smoking 3/4 of a pack per day but does not drink alcohol or use. Patient was seen at [facility] in May and per the ED provider was found to have an abnormality in his brain CT. I am unable to locate this report. He was apparently instructed to follow-up with a MRI and had a hard time getting scheduled due to the onset of the COVID-19 pandemic. At today's visit she did a head CT which indicate clustered calcifications in the anterior aspect of the cerebellar vermis associated with mild soft tissue prominence, there were also mild dilatation of the ventricles reflecting mild cerebral volume loss and commented that this could be hydrocephalus secondary to mass effect on the 4th ventricle. She has requested that we observe the patient overnight and that he have a MRI in the morning to further delineate the abnormalities on CT. Patient is mildly febrile at 99.9, blood pressure 111/58, heart rate 68, respiratory rate 14, oxygen saturation 94% on room air, he weighs 97.5 kg with a BMI of 24.2. He is mildly anemic with a hemoglobin of 12.5 and hematocrit of 36.5, his platelet count is 209, sodium is 136, his TSH is 71, A1c is pending, COVID -19 PCR is negative. Patient History Medical History Acid reflux BPH w urinary obs/LUTS Elevated PSA History of COVID-19 Urinary retention Surgical History History of laparoscopic cholecystectomy Hx of cholecystectomy Hx of hernia repair Family & Social History Family History Mother Stroke Coronary artery disease Father No problems noted. Social History: household members spouse Safety & Behavioral: Feels Safe in Current Yes Environment Been Physically Hurt or No Threatened By a Person Tobacco & Substance use: Tobacco type cigarettes Smoking Status Current every day smoker alcohol intake former alcohol intake frequency holiday/special occasion Substance Use Type does not use Meds Home Medications and Allergies Home Medications Medication Instructions Recorded Confirmed Type tamsulosin 0.4 mg capsule 0.4 mg PO BEDTIME #180 cap 03/09/21 07/21/21 Rx metoclopramide HCl 10 mg tablet 10 mg PO Q6H PRN #10 tab 06/05/21 07/21/21 Rx (Reglan) ciprofloxacin HCl 250 mg tablet 250 mg PO BID #4 tab 07/21/21 07/21/21 Rx (Cipro) Allergies Allergy/AdvReac Type Severity Reaction Status Date / Time amoxicillin AdvReac Mild Verified 07/21/21 08:13 Opioids - Morphine Analogues AdvReac Mild Vomiting Verified 07/21/21 08:13 Review of Systems Review of Systems ROS: Yes All systems reviewed with the patient and are negative except as otherwise documented Exam Vital Signs (past 8 hours): - 08/11/21 17:53 08/11/21 19:38 08/11/21 20:23 Temperature 99.9 F H Pulse Rate 89 78 77 Respiratory Rate 16 14 Blood Pressure 136/64 138/65 Pulse Oximetry 98 98 99 08/11/21 20:30 08/11/21 21:04 08/11/21 21:30 Temperature Pulse Rate 76 74 75 Respiratory Rate Blood Pressure Pulse Oximetry 100 99 99 08/11/21 21:43 08/11/21 22:00 08/11/21 22:30 Temperature Pulse Rate 71 77 70 Respiratory Rate Blood Pressure 111/58 L Pulse Oximetry 98 97 98 03/24/22 23:00 Temperature Pulse Rate 68 Respiratory Rate Blood Pressure Pulse Oximetry 94 Oxygen Delivery Method Room Air Narrative Exam Narrative: Gen: Alert, oriented, well-nourished 65 y.o. male, appears fatigued HEENT: normocephalic, atraumatic, conjunctiva clear, sclera non-icteric, oral mucosa pink and moist Neck: supple, full ROM, no JVD, trachea is midline Resp: Lungs CTA, non-labored breathing CV: RRR, no murmur or rubs Abd: soft, non-tender, normoactive BTs Skin: no lesions or rashes, dry and intact Neuro: Alert and oriented X 4 w/no focal deficits. Speech clear and coherent. Extremities: No edema, prominant varicose veins worse on left leg, moves all 4 extremities, is ambulatory, negative Aury?s sign Psyche: normal mood and affect. Objective Labs Result Diagrams: 08/11/21 20:22 08/11/21 20:22 Labs: Laboratory Results - last 24 hr 08/11/21 08/11/21 08/11/21 20:22 20:22 21:57 WBC 7.1 RBC 4.06 L Hgb 12.5 L Hct 36.5 L MCV 89.9 MCH 30.7 MCHC 34.1 RDW 14.9 H Plt Count 209 Neut % (Auto) 82.3 H Lymph % (Auto) 10.9 L [place] % (Auto) 5.8 Eos % (Auto) 0.2 L Baso % (Auto) 0.8 Neut # (Auto) 5900 Lymph # (Auto) 800 L [place] # (Auto) 400 Eos # (Auto) 0 Baso # (Auto) 100 Sodium 136 L Potassium 3.9 Chloride 106 Carbon Dioxide 26 BUN 12 Creatinine 0.90 Estimated GFR > 60.0 BUN/Creatinine Ratio 13.3 Glucose 106 Calcium 8.8 Magnesium 1.9 Total Bilirubin 0.5 AST 21 ALT 11 Alkaline Phosphatase 81 Total Protein 6.9 Albumin 3.5 Globulin 3.4 Albumin/Globulin Ratio 1.0 SARS-CoV-2 (PCR) Negative Assessment & Plan Assessment & Plan narrative: Shay Ayala is placed into observation to have and MRI of his head done to delineate if any changes in his prior head CTs as well as to determine if he is having either a TIA versus hydrocephalus. 1. Abnormality seen on brain CT, unknown if acute, present on admission * He is scheduled for a MRI stroke protocol in the morning * He is normotensive to hypotensive so will not be prescribing any blood pressure medications currently * Lipid panel at 5:00 a.m., A1c is pending 2. Weakness with low-grade fever, acute, present on admission * Influenza A and B PCR swabs are pending * Tylenol for mild pain and fever * I have ordered PT and OT to assess for general weakness 3. Urinary retention, ongoing * Patient is followed by Dr. Rai * He has an indwelling Cantu catheter VTE Prophylaxis: Wells risk score 0 Enoxaparin 40 mg subQ once daily Bilateral SCDs X Patient is placed into observation as his stay is not expected to exceed 2 midnights. FEN: IV fluids: NS at 100 ml/hour, diet: heart healthy, labs: CBC, C/BMP, liver enzymes, Mag, Consultants None Dispo: unknown at this time Code status: DNR/DNI as discussed with the patient who identifies his , Shobha his surrogate and POA. [X] I have utilized all available immediate resources to obtain, update, or review of the patient's current medications COVID-19 COVID-19 status: Negative Result date/Date tested (Pos, Neg/Pending): 08/12/21 Time Spent With Patient Critical Care time: I spent a total of [] minutes of critical care time on this patient's care today; this time is exclusive of procedural time. Scores Wells' Criteria for PE Clinical signs and symptoms of DVT: No PE is #1 Dx or equally likely: No Heart rate > 100: No Immobilization at least 3 days or surg in previous 4 weeks: No History of PE or DVT: No Hemoptysis: No Malignancy w/Treatment within 6 months or palliative: No Wells' PE Score total: 0 Quality VTE Deep Vein Thrombosis/Pulmonary Embolism Present on Admission: No MIPS - Admit I confirm the patient?s Advance Care Plan is present, Code status is documented, Surrogate decision maker is in patient?s record [If Yes, STOP here]: Yes MIPS - DC The patient has current or prior documentation of left ventricular ejection fraction (LVEF) less than 40%, or moderate or severely depressed left ventricular systolic function.: No
[2021-08-12 00:22] LABS: TSH w/ Reflex to FT4 0.71 uIU/mL (0.47-4.68)
[2021-08-12 02:09] LABS: Influenza A - CEPHEID Flu A NEGATIVE (NEGATIVE); Influenza B - CEPHEID Flu B NEGATIVE (NEGATIVE)
[2021-08-12] MEDS: SODIUM CHLORIDE 0.9% 1,000 ML 100 ML IV (02:14)
[2021-08-12 02:36] LABS: Appearance Urine UA CLEAR; Bilirubin Urine UA NEGATIVE (NEGATIVE); Glucose Urine UA NEGATIVE (Negative); Ketones Urine UA NEGATIVE (NEGATIVE); Occult Blood Urine UA NEGATIVE (Negative); Protein Urine UA NEGATIVE (Negative); Specific Gravity Urine UA <=1.005 (1.000-1.035); Urobilinogen Urine UA 0.2 E.U./dL (0.2); pH Urine UA 6.5 (4.5-8.0)
--- NOTE | 2021-08-12 02:40 | PC.NURSE ---
Pt arrived to floor via W/C, alert and oriented x 4, denies pain or N or V, last BM 08/10/21, bowel sounds active. Lung sounds clear, no noted cough, denies SOB. Heart sounds regular, denies chest pain.
[2021-08-12 02:56] LABS: Color Urine UA Straw
[2021-08-12 02:57] LABS: Bacteria Urine None Seen; Culture Indicated Urine Cult Not Indicated; Leukocyte Esterase Urine UA NEGATIVE (NEGATIVE); Nitrite Urine UA NEGATIVE (Negative); RBC Urine None Seen (0-5/HPF); WBC Urine None Seen (0-5/HPF)
[2021-08-12 03:28] VITALS: PULSE 73; RESP 14; O2SAT 98
[2021-08-12 06:08] VITALS: BP 142/72
[2021-08-12 06:52] LABS: Add Manual Diff / Slide Review NO; Basophils Absolute Auto 0 /uL (0-100); Basophils Percent Auto 0.8 % (0-2); Eosinophils Absolute Auto 0 /uL (0-450); Eosinophils Percent Auto 0.4 % (2-4); Hematocrit 35.4 % (41-53); Hemoglobin 12.2 g/dL (13.5-17.5); Lymphocytes Absolute Auto 600 /uL (1100-4500); Lymphocytes Percent Auto 11.1 % (25-40); Mean Corpuscular HGB Conc 34.3 % (30-36); Mean Corpuscular Hemoglobin 30.7 PG (26-34); Mean Corpuscular Volume 89.5 fL (80-100); Monocytes Absolute Auto 400 /uL (0-900); Monocytes Percent Auto 7.5 % (3-14); Neutrophils Absolute Auto 4300 /uL (1500-7000); Neutrophils Percent Auto 80.2 % (50-75); Platelet Count 193 X10^3/uL (150-400); Red Blood Cell Count 3.96 X10^6/uL (4.5-5.9); Red Cell Distribution Width 14.9 % (11.6-14.8); White Blood Cell Count 5.4 X10^3/uL (4.5-11.0)
[2021-08-12] MEDS: ACETAMINOPHEN 325 MG TABLET 650 MG PO (06:57)
[2021-08-12 07:03] LABS: BUN Creatinine Ratio 13.3 (6-22); Blood Urea Nitrogen 10 mg/dL (9-20); Calcium 8.4 mg/dL (8.4-10.2); Carbon Dioxide 24 mmol/L (22-32); Chloride 107 mmol/L (98-107); Cholesterol 148 mg/dL (140-199); Estimated Glomerular Filt Rate > 60.0 mL/min (>60); Glucose 102 mg/dL (80-110); HDL Cholesterol 33 mg/dL (40-60); HEMOLYSIS < 15 (0-50); LDL Cholesterol Calculated 102 mg/dL (<100); Magnesium 1.9 mg/dL (1.6-2.3); Potassium 3.5 mmol/L (3.4-5.1); Sodium 134 mmol/L (137-145); Triglycerides 65 mg/dL (35-150)
[2021-08-12 07:29] VITALS: BP 142/59; PULSE 74; RESP 18; TEMP 37.3; O2SAT 96
--- NOTE | 2021-08-12 08:05 | PC.NURSE ---
0755 pt colmenares detached upon pt ambulation to empty bag. Colmenares bag was empty upon this nurse assessment. approx 10 drops of blood seen on bed and pt legs. aware of incident.
[2021-08-12] MEDS: ENOXAPARIN 40 MG/0.4 ML SYRINGE SUBCUT (09:18)
[2021-08-12] MEDS: CLOPIDOGREL 75 MG TABLET PO (09:18)
[2021-08-12] MEDS: ASPIRIN EC 81 MG TABLET PO (09:18)
--- NOTE | 2021-08-12 10:33 | PC.NURSE ---
Day shift: Pt off unit for MRI at approx 1030. Off tele as well and [employer] aware. New Cantu cath placed w/o incident and Pt tolerated well.
[2021-08-12] MEDS: LIDOCAINE 2% (GLYDO) 6 ML GEL TOP (11:05)
--- NOTE | 2021-08-12 11:26 | PC.NURSE ---
Day shift:Back on AC unit after MRI at approx 1110. Placed back on tele. Denies any pain or nausea.
[2021-08-12 11:35] VITALS: BP 111/55; PULSE 61; RESP 17; TEMP 36.6; O2SAT 98
[2021-08-12] MEDS: POTASSIUM CHLORIDE 20 MEQ TAB 40 MEQ PO (12:06)
--- NOTE | 2021-08-12 12:21 | PM.DS.1 ---
History of Present Illness History of Present Illness Date Patient Seen: 08/12/21 Time Patient Seen: 12:21 Chief complaint: Headache, vomiting- started new meds Narrative: Per MATTHEW Blair: Shay Ayala is a 65 y.o. male with the current condition of urinary retention requiring a chronic indwelling Cantu catheter and bag presented to the emergency department today with generalized weakness, he had a low-grade fever on presentation, he does endorse having nasal congestion particularly worse in the morning, of which the generalized weakness and feeling ?blah? has been going on for 2 days.? The emergency department provider did state he complained of visual blurriness however when the patient arrived to the room he denies any visual changes, he does were glasses.? He denies subjective fever, he does have a headache and nasal congestion, denies shortness of breath, he has a little bit of diffuse left-sided chest and abdominal pain, denies nausea vomiting, denies diarrhea or constipation, denies any numbing or tingling of his upper or lower extremities. ? was noted to have a mild fever of 99.9.? He denies any sick contacts.? He does have a history of having had COVID in May of this year and had the Jony & Jony vaccine but no booster.? He does endorse smoking 3/4 of a pack per day but does not drink alcohol or use. Patient was seen at [facility] in May and per the ED provider was found to have an abnormality in his brain CT.? I am unable to locate this report.? He was apparently instructed to follow-up with a MRI and had a hard time getting scheduled due to the onset of the COVID-19 pandemic.? At today's visit she did a head CT which indicate clustered calcifications in the anterior aspect of the cerebellar vermis associated with mild soft tissue prominence, there were also mild dilatation of the ventricles reflecting mild cerebral volume loss and commented that this could be hydrocephalus secondary to mass effect on the 4th ventricle.? She has requested that we observe the patient overnight and that he have a MRI in the morning to further delineate the abnormalities on CT.? Patient is mildly febrile at 99.9, blood pressure 111/58, heart rate 68, respiratory rate 14, oxygen saturation 94% on room air, he weighs 97.5 kg with a BMI of 24.2.? He is mildly anemic with a hemoglobin of 12.5 and hematocrit of 36.5, his platelet count is 209, sodium is 136, his TSH is 71, A1c is pending, COVID -19 PCR is negative. Discharge Providers Provider Date of admission: 08/11/21 22:35 Discharge Date: 08/12/21 Primary care physician: Natividad Persaud MD Discharge provider: Roe Cast DO Summary Hospital Course Discharge Diagnosis: 1. Abnormality seen on brain CT, unknown if acute, present on admission 2. malaise 3. Urinary retention, chronic Hospital Course: This was a 65-year-old male who presented with generalized complaints of weakness and malaise, ER provider reported vision blurriness and initial head CT showed nonspecific calcifications. His symptoms improved over the course of observation, an MRI did not show any significant findings in the area as of calcification. Urine culture was ultimately without growth, and no acute source of infection was found. He was discharged home with recommendations to follow-up with his primary care provider as previously scheduled. Exam Vital Signs (past 8 hours): - 08/12/21 06:08 08/12/21 07:29 08/12/21 11:35 Temperature 99.2 F 97.9 F Pulse Rate 74 61 Respiratory Rate 18 17 Blood Pressure 142/72 H 142/59 H 111/55 L Pulse Oximetry 96 98 Oxygen Delivery Method Room Air Oxygen Flow Rate 0 Narrative Exam Narrative: Gen: Alert, oriented, well-nourished 65 y.o. male, appears fatigued HEENT: normocephalic, atraumatic, conjunctiva clear, sclera non-icteric, oral mucosa pink and moist Neck: supple, full ROM, no JVD, trachea is midline Resp: Lungs CTA, non-labored breathing CV: RRR, no murmur or rubs Abd: soft, non-tender, normoactive BTs Skin: no lesions or rashes, dry and intact Neuro: Alert and oriented X 4 w/no focal deficits. Speech clear and coherent. Extremities: No edema, prominant varicose veins worse on left leg, moves all 4 extremities, is ambulatory, negative Aury?s sign Psyche: normal mood and affect. Objective Labs Result Diagrams: 08/12/21 06:22 08/12/21 06:22 Labs: Laboratory Results - last 24 hr 08/11/21 08/11/21 08/11/21 20:22 20:22 20:22 WBC 7.1 RBC 4.06 L Hgb 12.5 L Hct 36.5 L MCV 89.9 MCH 30.7 MCHC 34.1 RDW 14.9 H Plt Count 209 Neut % (Auto) 82.3 H Lymph % (Auto) 10.9 L [place] % (Auto) 5.8 Eos % (Auto) 0.2 L Baso % (Auto) 0.8 Neut # (Auto) 5900 Lymph # (Auto) 800 L [place] # (Auto) 400 Eos # (Auto) 0 Baso # (Auto) 100 Sodium 136 L Potassium 3.9 Chloride 106 Carbon Dioxide 26 BUN 12 Creatinine 0.90 Estimated GFR > 60.0 BUN/Creatinine Ratio 13.3 Glucose 106 Hemoglobin A1c 5.0 Calcium 8.8 Magnesium 1.9 Total Bilirubin 0.5 AST 21 ALT 11 Alkaline Phosphatase 81 Total Protein 6.9 Albumin 3.5 Globulin 3.4 Albumin/Globulin Ratio 1.0 Triglycerides Cholesterol LDL Cholesterol, Calc HDL Cholesterol TSH Urine Color Urine Appearance Urine pH Ur Specific [place] Urine Protein Urine Glucose (UA) Urine Ketones Urine Occult Blood Urine Nitrate Urine Bilirubin Urine Urobilinogen Ur Leukocyte Esterase Urine RBC Urine WBC Urine Bacteria Ur Culture Indicated? SARS-CoV-2 (PCR) Influenza A (RT-PCR) Influenza B (RT-PCR) 08/11/21 08/11/21 08/12/21 20:22 21:57 01:15 WBC RBC Hgb Hct MCV MCH MCHC RDW Plt Count Neut % (Auto) Lymph % (Auto) [place] % (Auto) Eos % (Auto) Baso % (Auto) Neut # (Auto) Lymph # (Auto) [place] # (Auto) Eos # (Auto) Baso # (Auto) Sodium Potassium Chloride Carbon Dioxide BUN Creatinine Estimated GFR BUN/Creatinine Ratio Glucose Hemoglobin A1c Calcium Magnesium Total Bilirubin AST ALT Alkaline Phosphatase Total Protein Albumin Globulin Albumin/Globulin Ratio Triglycerides Cholesterol LDL Cholesterol, Calc HDL Cholesterol TSH 0.71 Urine Color Urine Appearance Urine pH Ur Specific [place] Urine Protein Urine Glucose (UA) Urine Ketones Urine Occult Blood Urine Nitrate Urine Bilirubin Urine Urobilinogen Ur Leukocyte Esterase Urine RBC Urine WBC Urine Bacteria Ur Culture Indicated? SARS-CoV-2 (PCR) Negative Influenza A (RT-PCR) Flu a negative Influenza B (RT-PCR) Flu b negative 08/12/21 08/12/2122 02:05 06:22 06:22 WBC 5.4 RBC 3.96 L Hgb 12.2 L Hct 35.4 L MCV 89.5 MCH 30.7 MCHC 34.3 RDW 14.9 H Plt Count 193 Neut % (Auto) 80.2 H Lymph % (Auto) 11.1 L [place] % (Auto) 7.5 Eos % (Auto) 0.4 L Baso % (Auto) 0.8 Neut # (Auto) 4300 Lymph # (Auto) 600 L [place] # (Auto) 400 Eos # (Auto) 0 Baso # (Auto) 0 Sodium 134 L Potassium 3.5 Chloride 107 Carbon Dioxide 24 BUN 10 Creatinine 0.75 Estimated GFR > 60.0 BUN/Creatinine Ratio 13.3 Glucose 102 Hemoglobin A1c Calcium 8.4 Magnesium 1.9 Total Bilirubin AST ALT Alkaline Phosphatase Total Protein Albumin Globulin Albumin/Globulin Ratio Triglycerides 65 Cholesterol 148 LDL Cholesterol, Calc 102 H HDL Cholesterol 33 L TSH Urine Color Straw Urine Appearance Clear Urine pH 6.5 Ur Specific [place] <=1.005 Urine Protein Negative Urine Glucose (UA) Negative Urine Ketones Negative Urine Occult Blood Negative Urine Nitrate Negative Urine Bilirubin Negative Urine Urobilinogen 0.2 Ur Leukocyte Esterase Negative Urine RBC None seen Urine WBC None seen Urine Bacteria None seen Ur Culture Indicated? Cult not indicated SARS-CoV-2 (PCR) Influenza A (RT-PCR) Influenza B (RT-PCR) [facility] Medical History Acid reflux BPH w urinary obs/LUTS Elevated PSA History of COVID-19 Urinary retention Surgical History History of laparoscopic cholecystectomy Hx of cholecystectomy Hx of hernia repair Family History Mother Stroke Coronary artery disease Father No problems noted. 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 MRI was negative. Possible this was a TIA. Medications prescribed to reduce risk of stroke in the future. Please follow up with your PCP within the month. Discharge orders & Medications Prescriptions: New aspirin 81 mg tablet,chewable 81 mg PO DAILY 30 Days Qty: 30 0RF atorvastatin 80 mg tablet 80 mg PO BEDTIME 30 Days Qty: 30 0RF Continued metoclopramide HCl [Reglan] 10 mg tablet 10 mg PO Q6H PRN (Reason: nausea and vomiting) Qty: 10 0RF tamsulosin 0.4 mg capsule 0.4 mg PO BEDTIME Qty: 180 3RF ciprofloxacin HCl [Cipro] 250 mg tablet 250 mg PO BID Qty: 4 0RF Follow up/Referrals: Natividad Persaud MD [Primary Care Provider] - Diet/Activity/Treatments Diet: Diet as Tolerated Activity: As tolerated Visit Report/Discharge Packet Instructions: Transient Ischemic Attack, DI for Transient Ischemic Attack, How to Prevent Falls Discharge Data Primary Care Provider: Natividad Persaud Attending Provider: Joie Gonzalez VTE Deep Vein Thrombosis/Pulmonary Embolism Present on Admission: No
--- NOTE | 2021-08-12 13:08 | CM.IDA ---
Initial DCP Assessment Note Pt is a 65 yo male, resident of [place], arrives to the ED, per ER report: comes in complaining of a headache, some right eye blurriness, shakiness today reports that he feels ?like crap? achy all over, episode of emesis, increasing dizziness some difficulty in walking Patient admitted observation for w/u. MRI completed and Neg today- patient has DC order PCP: [facility] [employer] Payer: [employer] Driver Reviewed chart, pt discussed in multidisciplinary rounds this morning. Deficits that patient presented with are now resolved; MRI Neg for stroke. patient will DC home today w/spouse and recommendation for close outpatient f/u No needs expected from DC planning team although will remain available in case this changes today. TY Jimenez Discharge Planning/Care Management CM Discharge Assessment Start: 08/12/21 13:04 Freq: Status: Active Protocol: Document 08/12/21 13:04 LATESHA (Rec: 08/12/21 13:08 LATESHA [id number]) Discharge Planning Assessment Assigned Continuous Improvement Engineer TY Lainez DPOA/Assigned Designee Name Shobha Ayala, spouse Contact Information [phone] cell [phone] , home Advance Directives? No Advance Directives on File No History Provided By Patient,Family Member,Medical Record Prior Living Arrangements House Household Members spouse Type of transportation used prior to Drives own vehicle admit Independent with ADL's Yes Is patient alert and oriented? Yes Barriers to Discharge No Discharge Plan Home Transportation Arrangement Spouse Referrals Initiated None needed
--- NOTE | 2021-08-12 14:23 | PC.NURSE ---
pt D/C at 1315. This nurse provided teaching and education in stroke, fall prevention, Cantu care, and TIA to pt and spouse. pt and spouse acknowledge understanding verbally. Pt Cantu bag changed and pt advised to inform HCP of the newly inserted Cantu. Pt departed on a wheelchair and met spouse at the ER entrance. This nurse assisted pt from wheelchair to car.
== END 2021-08-12 13:15 | disposition home or self-care (01) ==
LOC: ED 22:01 → AC 22:38
PROVIDERS: Admitting Provider Nurse Practitioner Family; Emergency Provider Emergency Medicine; PCP Student in an Organized Health Care Education/Training Program; Referring Provider Emergency Medicine; Visit Provider Nurse Practitioner Family
DX: R11.2 Nausea with vomiting, unspecified (principal); R19.7 Diarrhea, unspecified; R50.9 Fever, unspecified; R93.0 Abnormal findings on diagnostic imaging of skull and head, not elsewhere classified; R33.9 Retention of urine, unspecified; R53.81 Other malaise; Z20.822 Contact with and (suspected) exposure to COVID-19
CPT/HCPCS: 36415; 36592; 70450; 70548; 70553; 80048; 80053; 80061; 81001; 83036; 83735; 84443; 85025; 87502; 87635; 96372; 96374; 99284; C9803; G0378; J1650; J2765

== ENCOUNTER 2021-09-09 21:53 | Emergency (ER) | payer OTHER, SELFPAY ==
[2021-08-18 11:04] VITALS: BMI 24.2
[2021-09-09 22:16] VITALS: BP 147/73; PULSE 75; RESP 18; TEMP 36.4; O2SAT 99; BMI 25.3
[2021-09-09] MEDS: LIDOCAINE 2% (GLYDO) 6 ML GEL TOP (23:33)
--- NOTE | 2021-09-09 23:42 | PC.NURSE ---
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 Blood present at urethral opening upon inspection. Patient states no pain at urethral opening. patient tolerated procedure well
--- NOTE | 2021-09-09 23:42 | ED.GENADULT ---
HPI - General Adult General Chief complaint: Urogenital-Male Stated complaint: Urinary catheter issues Time Seen by Provider: 09/09/21 23:34 Source: patient Mode of arrival: Ambulatory History of Present Illness HPI narrative: 65-year-old male with a indwelling urinary catheter secondary to urinary retention. He has had a catheter in for the past several months. He gets it changed once a month. He states that he felt like the catheter partially came out so he comes emergency department this evening for replacement of the catheter. Related Data Previous Rx's Medication Instructions Recorded tamsulosin 0.4 mg capsule 0.4 mg PO BEDTIME #180 cap 03/09/21 metoclopramide HCl 10 mg tablet 10 mg PO Q6H PRN #10 tab 06/05/21 (Reglan) aspirin 81 mg chewable tablet 81 mg PO DAILY 30 Days #30 tab 08/12/21 atorvastatin 80 mg tablet 80 mg PO BEDTIME 30 Days #30 tab 08/12/21 ciprofloxacin HCl 250 mg tablet 250 mg PO BID #6 tab 08/18/21 (Cipro) Allergies Allergy/AdvReac Type Severity Reaction Status Date / Time amoxicillin AdvReac Mild Verified 08/18/21 10:08 Opioids - Morphine Analogues AdvReac Mild Vomiting Verified 08/18/21 10:08 Review of Systems Constitutional Comments: No fevers Gastrointestinal Comments: No abdominal pain Genitourinary Genitourinary: Reports system reviewed and no additional complaints, except as documented and Reports as per HPI Patient History Medical History Acid reflux BPH w urinary obs/LUTS Elevated PSA History of COVID-19 Urinary retention Surgical History History of laparoscopic cholecystectomy Hx of cholecystectomy Hx of hernia repair Family History Mother Stroke Coronary artery disease Father No problems noted. 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 needs: No Smoking Status: Current every day smoker Tobacco: How many years used: 40 alcohol intake: former caffeine: Yes Smoking Status: Current every day smoker tobacco type: cigarettes alcohol intake frequency: holidays/special occasions only Substance Use Type: does not use Exam Initial Vital Signs Initial Vital Signs: Vital Signs Temperature 97.6 F 09/09/21 22:16 Pulse Rate 75 09/09/21 22:16 Respiratory Rate 18 09/09/21 22:16 Blood Pressure 147/73 H 09/09/21 22:16 Pulse Oximetry 99 09/09/21 22:16 HENMT Head: normal to inspection and normocephalic GI Inspection: normal to inspection Other: Cantu catheter in place Neuro General: patient alert, patient awake and moves all extremities Course Orders Ordered: ED Orders 09/09/21 23:30 Urine Culture Stat Urine Microscopic Stat Discontinued Medications Lidocaine HCl (Lidocaine 2% (Glydo) 6 Ml Gel) 6 ml TOP NOW ONE Stop: 09/09/21 23:05 Last Admin: 09/09/21 23:33 Dose: 6 ml Documented by: MARYCHUY Vital Signs Vital signs: Vital Signs - 8 hr 09/09/21 22:16 Temperature 97.6 F Pulse Rate 75 Respiratory Rate 18 Blood Pressure 147/73 H Pulse Oximetry 99 Medical Decision Making Lab Data Labs: Lab Results 09/09/21 Range/Units 23:30 Urine RBC 30-100/hpf H (0-5/HPF) Urine WBC 1-5/hpf (0-5/HPF) Urine Bacteria None seen (None) Ur Culture Indicated? Specimen cultured Urine Dip Bedside Urine Glucose Negative Bedside Urine Bilirubin - Negative Bedside Urine Ketone - Negative Urine Specific [place] 1.030 Bedside Urine Occult Blood +++ Bedside Urine pH 6.0 Bedside Urine Protein + 30 Bedside Urine Urobilinogen - Negative Bedside Urine Nitrite - Negative Bedside Urine Leukocytes + 70 Esterase Point of care testing: Urine Dip Bedside Urine Glucose Negative Bedside Urine Bilirubin - Negative Bedside Urine Ketone - Negative Urine Specific [place] 1.030 Bedside Urine Occult Blood +++ Bedside Urine pH 6.0 Bedside Urine Protein + 30 Bedside Urine Urobilinogen - Negative Bedside Urine Nitrite - Negative Bedside Urine Leukocytes + 70 Esterase MDM Narrative Medical decision making narrative: Patient's Cantu catheter was replaced by nursing staff prior to my initial evaluation of the patient. It is now draining without difficulty. Urinalysis was obtained however given the chronic catheter status we will wait for the urine culture before starting any antibiotics and he currently is not having any urinary tract infection like symptoms. Discharge patient home to continue with outpatient treatment. Discharge Plan Departure Patient Disposition: Home Clinical Impression: Complication of Cantu catheter Instructions: How to Care for Your Cantu Catheter -- Male Activity Restrictions/Additional Instructions: Continue to take all of your medications as directed. Keep all of your scheduled medical appointments. Return to the emergency department for any new or worsening symptoms. Prescriptions: No Action metoclopramide HCl [Reglan] 10 mg tablet 10 mg PO Q6H PRN (Reason: nausea and vomiting) Qty: 10 0RF aspirin 81 mg tablet,chewable 81 mg PO DAILY 30 Days Qty: 30 0RF atorvastatin 80 mg tablet 80 mg PO BEDTIME 30 Days Qty: 30 0RF tamsulosin 0.4 mg capsule 0.4 mg PO BEDTIME Qty: 180 3RF ciprofloxacin HCl [Cipro] 250 mg tablet 250 mg PO BID Qty: 6 0RF Rx Instructions: Start morning before procedure, continue day of and day after, until medication is gone. Referrals: Natividad Persaud MD [Primary Care Provider] -
[2021-09-10 00:42] LABS: Bacteria Urine None Seen; Culture Indicated Urine Specimen Cultured; RBC Urine 30-100/HPF (0-5/HPF); WBC Urine 1-5/HPF (0-5/HPF)
== END 2021-09-10 | disposition home or self-care (01) ==
PROVIDERS: Emergency Provider Emergency Medicine; PCP Student in an Organized Health Care Education/Training Program
DX: T83.028A Displacement of other urinary catheter, initial encounter (principal)
CPT/HCPCS: 51702; 81003; 81015; 87086; 99283

== ENCOUNTER 2021-09-21 17:25 | Emergency (ER) | payer OTHER, SELFPAY ==
[2021-08-18 11:04] VITALS: BMI 24.2
[2021-09-21] VITALS (12 sets, daily range): BP systolic 105–156; BP diastolic 58–79; PULSE 77–122; RESP 13–23; TEMP 37.7; O2SAT 95–98; BMI 25.3
[2021-09-21] MEDS: SODIUM CHLORIDE 0.9% 500 ML 1000 ML IV (17:54)
[2021-09-21] MEDS: ONDANSETRON 4 MG/2 ML INJ IV (17:54)
[2021-09-21 18:04] LABS: Add Manual Diff / Slide Review NO; Basophils Absolute Auto 100 /uL (0-100); Basophils Percent Auto 0.4 % (0-2); Eosinophils Absolute Auto 100 /uL (0-450); Eosinophils Percent Auto 0.3 % (2-4); Hematocrit 43.8 % (41-53); Hemoglobin 14.8 g/dL (13.5-17.5); Lymphocytes Absolute Auto 900 /uL (1100-4500); Mean Corpuscular HGB Conc 33.9 % (30-36); Mean Corpuscular Hemoglobin 29.3 PG (26-34); Mean Corpuscular Volume 86.5 fL (80-100); Monocytes Absolute Auto 900 /uL (0-900); Monocytes Percent Auto 4.1 % (3-14); Neutrophils Absolute Auto 20800 /uL (1500-7000); Neutrophils Percent Auto 91.2 % (50-75); Platelet Count 261 X10^3/uL (150-400); Red Blood Cell Count 5.06 X10^6/uL (4.5-5.9); Red Cell Distribution Width 14.6 % (11.6-14.8); White Blood Cell Count 22.8 X10^3/uL (4.5-11.0)
[2021-09-21 18:18] LABS: Creatine Kinase 32 U/L (55-170); Lactate (Lactic Acid) 1.6 mmol/L (0.7-2.1)
[2021-09-21 18:25] LABS: Alanine Aminotransferase 36 IU/L (<50); Albumin 4.6 g/dL (3.5-5.0); Albumin Globulin Ratio 1.5 (1.0-2.8); Alkaline Phosphatase 87 U/L (38-126); Aspartate Aminotransferase 42 IU/L (17-59); BUN Creatinine Ratio 22.4 (6-22); Bilirubin Total 0.3 mg/dL (0.2-1.3); Blood Urea Nitrogen 17 mg/dL (9-20); Calcium 9.5 mg/dL (8.4-10.2); Carbon Dioxide 32 mmol/L (22-32); Chloride 101 mmol/L (98-107); Estimated Glomerular Filt Rate > 60 mL/min (>60); Glucose 107 mg/dL (80-110); HEMOLYSIS < 15 (0-50); Lipase 122 U/L (23-300); Sodium 138 mmol/L (137-145); Total Protein 7.6 g/dL (6.3-8.2)
--- NOTE | 2021-09-21 18:27 | ED_ITS ---
HPI - Abdominal Pain General Chief Complaint: Abdominal Pain Stated Complaint: feels like crap, vomiting Time Seen by Provider: 09/21/21 17:52 Source: patient Mode of arrival: Wheelchair Limitations: no limitations History of Present Illness HPI narrative: This is a 65-year-old male who comes emergency department with complaint of sudden onset left-sided abdominal/flank plain that started about 9:00 a.m. this morning. Patient states it came right out of the blue he states it is sort of intermittent spasm the sensation on the left side. He states it was not really flank but more side. Did not changed location or radiate elsewhere. He developed nausea about 3-4 p.m. and started having emesis. He has had some mild dizziness which he states started back in July he had a brain MRI and has been referred to neurology. He states something is ?wrong with his nausea? but he does not know exactly what. He denies fever but has had some chills. No diaphoresis. No chest pain, no chest pressure, no shortness of breath. He states his bowel movements yesterday were soft and dark brown with no black or bright red blood and have been normal. He denies any dysuria, urgency or hematuria. He does wear a urinary catheter secondary to prostate issues chronically. Patient has not had similar symptoms in the past. He states he is on Flomax for his prostate, MiraLax daily for constipation, a multivitamin. He has had a cholecystectomy and hernia repair 2 years ago. He denies any cardiac history no hypertension, dyslipidemia, no diabetes other known medical issues. Denies allergies to medications. Heat smokes half pack per day, no alcohol, no illicit. Primary care is Dr. Bauer through [facility]. He is accompanied by his today. Related Data Previous Rx's Medication Instructions Recorded tamsulosin 0.4 mg capsule 0.4 mg PO BEDTIME #180 cap 03/09/21 metoclopramide HCl 10 mg tablet 10 mg PO Q6H PRN #10 tab 06/05/21 (Reglan) ciprofloxacin HCl 250 mg tablet 250 mg PO BID #6 tab 08/18/21 (Cipro) levofloxacin 750 mg tablet 750 mg PO DAILY 7 Days #7 tab 09/21/21 ondansetron 4 mg disintegrating 4 mg PO QID PRN #5 tab 09/21/21 tablet Allergies Allergy/AdvReac Type Severity Reaction Status Date / Time amoxicillin AdvReac Mild Verified 08/18/21 10:08 Opioids - Morphine Analogues AdvReac Mild Vomiting Verified 08/18/21 10:08 Review of Systems Review of Systems ROS Unobtainable: All systems reviewed & are unremarkable except as noted in HPI and below Patient History Medical History Acid reflux BPH w urinary obs/LUTS Elevated PSA History of COVID-19 Urinary retention Surgical History History of laparoscopic cholecystectomy Hx of cholecystectomy Hx of hernia repair Family History Mother Stroke Coronary artery disease Father No problems noted. Social History marital status: household members: spouse Previous occupational history: [employer] special anaya needs: No Smoking Status: Current every day smoker Tobacco: How many years used: 40 alcohol intake: former caffeine: Yes Smoking Status: Current every day smoker tobacco type: cigarettes alcohol intake frequency: holidays/special occasions only Substance Use Type: does not use Exam Narrative Exam Narrative: GENERAL: Alert and oriented x three, male in mild distress. HEENT: Head normocephalic, atraumatic, EOMI, pupils reactive, face symmetric, moist mucous membranes NECK: Supple, full range of motion CARDIOVASCULAR: Regular rate and rhythm without murmurs, rubs or gallops. RESPIRATORY: Breath sounds equal bilaterally, no wheezes rales or rhonchi. ABDOMEN: Soft, nontender. Normoactive bowel sounds all 4 quadrants. No guarding or rebound, rigidity, no mass. No bruit or mass. : No CVA tenderness EXTREMITIES: Normal range of motion, no clubbing or edema. Neurovascularly intact NEUROLOGICAL: Cranial nerves II through XII grossly intact. Moving all extre mities SKIN: Warm, dry, no petechiae, no rashes or lesions. Initial Vital Signs Initial Vital Signs: Vital Signs Temperature 100 F H 09/21/21 17:28 Pulse Rate 122 H 09/21/21 17:28 Respiratory Rate 18 09/21/21 17:28 Blood Pressure 156/61 H 09/21/21 17:28 Pulse Oximetry 96 09/21/21 17:28 Course Orders Ordered: Discontinued Medications Sodium Chloride (Normal Saline 0.9%) 500 mls @ 1,000 mls/hr IV BOLUS ONE Stop: 09/21/21 18:14 Last Infusion: 09/21/21 18:53 Dose: 0 mls/hr Documented by: Admin: 09/21/21 17:54 Dose: 1,000 mls/hr Documented by: JORGE A Ceftriaxone Sodium 2,000 mg/ (Sodium Chloride) 100 mls @ 200 mls/hr IV NOW ONE Stop: 09/21/21 19:56 Last Infusion: 09/21/21 20:42 Dose: 0 mls/hr Documented by: Admin: 09/21/21 20:07 Dose: 200 mls/hr Documented by: ADAM Ondansetron HCl (Ondansetron 4 Mg/2 Ml Inj) 4 mg IV NOW ONE Stop: 09/21/21 17:46 Last Admin: 09/21/21 17:54 Dose: 4 mg Documented by: JORGE A Ondansetron HCl (Ondansetron 4 Mg Odt Prepack) 1 bottle MISC SEEINSTR ONE Stop: 09/21/21 20:08 Last Admin: 09/21/21 20:20 Dose: 1 bottle Documented by: TY Reevaluation(s) Reevaluation #1: Patient continues to feel improved and states his pain continues to be resolved without any additional intervention. Patient's does appear to have a UTI reviewed the findings from today as well as possible cyst his kidneys. Patient and family are aware that he needs follow-up for renal ultrasound. Being treated for possible pyelonephritis. Patient's EKG was noted to have a right bundle-branch block which appears new patient does not have any cardiac symptoms today that are suspicious at this time and so patient was encouraged to follow up regarding this with his physician. Vital Signs Vital signs: Vital Signs - 8 hr 09/21/21 17:28 09/21/21 17:45 09/21/21 17:46 Temperature 100 F H Pulse Rate 122 H 103 H 101 H Respiratory Rate 18 14 14 Blood Pressure 156/61 H 131/79 Pulse Oximetry 96 MDM - Abdominal Pain Lab Data Result diagrams: 09/21/21 17:56 09/21/21 17:56 Labs: Lab Results 09/21/21 09/21/21 09/21/21 Range/Units 17:30 17:56 17:56 WBC 22.8 H (4.5-11.0) X10^3/uL RBC 5.06 (4.5-5.9) X10^6/uL Hgb 14.8 (13.5-17.5) g/dL Hct 43.8 (41-53) % MCV 86.5 (80-100) fL MCH 29.3 (26-34) PG MCHC 33.9 (30-36) % RDW 14.6 (11.6-14.8) % Plt Count 261 (150-400) X10^3/uL Neut % (Auto) 91.2 H (50-75) % Lymph % (Auto) 4.0 L (25-40) % [place] % (Auto) 4.1 (3-14) % Eos % (Auto) 0.3 L (2-4) % Baso % (Auto) 0.4 (0-2) % Neut # (Auto) 05976 H (2422-4956) /uL Lymph # (Auto) 900 L (0661-5647) /uL [place] # (Auto) 900 (0-900) /uL Eos # (Auto) 100 (0-450) /uL Baso # (Auto) 100 (0-100) /uL Sodium 138 (137-145) mmol/L Potassium 4.0 (3.4-5.1) mmol/L Chloride 101 (98-107) mmol/L Carbon Dioxide 32 (22-32) mmol/L BUN 17 (9-20) mg/dL Creatinine 0.76 (0.66-1.25) mg/dL Estimated GFR > 60 (>60) mL/min BUN/Creatinine Ratio 22.4 H (6-22) Glucose 107 (80-110) mg/dL Lactate (0.7-2.1) mmol/L Calcium 9.5 (8.4-10.2) mg/dL Total Bilirubin 0.3 (0.2-1.3) mg/dL AST 42 (17-59) IU/L ALT 36 (<50) IU/L Alkaline Phosphatase 87 (38-126) U/L Total Creatine Kinase (55-170) U/L CK-MB (CK-2) CK-MB (CK-2) Rel Index Troponin I (0.01-0.034) ng/mL Total Protein 7.6 (6.3-8.2) g/dL Albumin 4.6 (3.5-5.0) g/dL Globulin 3.0 (1.7-4.1) g/dL Albumin/Globulin Ratio 1.5 (1.0-2.8) Lipase 122 (23-300) U/L Procalcitonin (<0.5) ng/mL Urine Color Urine Appearance Urine pH (4.5-8.0) Ur Specific [place] (1.000-1.035) Urine Protein (Negative) Urine Glucose (UA) (Negative) g/dL Urine Ketones (NEGATIVE) Urine Occult Blood (Negative) Urine Nitrate (Negative) Urine Bilirubin (NEGATIVE) Urine Urobilinogen (0.2) E.U./dL Ur Leukocyte Esterase (NEGATIVE) Urine RBC (0-5/HPF) Urine WBC (0-5/HPF) Ur Squamous Epith Cells (0-5/HPF) Amorphous Sediment Urine Bacteria (None) Ur Culture Indicated? SARS-CoV-2 (PCR) Negative (Negative) 09/21/21 09/21/21 09/21/21 Range/Units 17:56 17:56 17:56 WBC (4.5-11.0) X10^3/uL RBC (4.5-5.9) X10^6/uL Hgb (13.5-17.5) g/dL Hct (41-53) % MCV (80-100) fL MCH (26-34) PG MCHC (30-36) % RDW (11.6-14.8) % Plt Count (150-400) X10^3/uL Neut % (Auto) (50-75) % Lymph % (Auto) (25-40) % [place] % (Auto) (3-14) % Eos % (Auto) (2-4) % Baso % (Auto) (0-2) % Neut # (Auto) (8794-9132) /uL Lymph # (Auto) (6558-1541) /uL [place] # (Auto) (0-900) /uL Eos # (Auto) (0-450) /uL Baso # (Auto) (0-100) /uL Sodium (137-145) mmol/L Potassium (3.4-5.1) mmol/L Chloride (98-107) mmol/L Carbon Dioxide (22-32) mmol/L BUN (9-20) mg/dL Creatinine (0.66-1.25) mg/dL Estimated GFR (>60) mL/min BUN/Creatinine Ratio (6-22) Glucose (80-110) mg/dL Lactate 1.6 (0.7-2.1) mmol/L Calcium (8.4-10.2) mg/dL Total Bilirubin (0.2-1.3) mg/dL AST (17-59) IU/L ALT (<50) IU/L Alkaline Phosphatase (38-126) U/L Total Creatine Kinase 32 L (55-170) U/L CK-MB (CK-2) TNP CK-MB (CK-2) Rel Index TNP Troponin I < 0.012 (0.01-0.034) ng/mL Total Protein (6.3-8.2) g/dL Albumin (3.5-5.0) g/dL Globulin (1.7-4.1) g/dL Albumin/Globulin Ratio (1.0-2.8) Lipase (23-300) U/L Procalcitonin 0.03 (<0.5) ng/mL Urine Color Urine Appearance Urine pH (4.5-8.0) Ur Specific [place] (1.000-1.035) Urine Protein (Negative) Urine Glucose (UA) (Negative) g/dL Urine Ketones (NEGATIVE) Urine Occult Blood (Negative) Urine Nitrate (Negative) Urine Bilirubin (NEGATIVE) Urine Urobilinogen (0.2) E.U./dL Ur Leukocyte Esterase (NEGATIVE) Urine RBC (0-5/HPF) Urine WBC (0-5/HPF) Ur Squamous Epith Cells (0-5/HPF) Amorphous Sediment Urine Bacteria (None) Ur Culture Indicated? SARS-CoV-2 (PCR) (Negative) 09/21/21 Range/Units 18:50 WBC (4.5-11.0) X10^3/uL RBC (4.5-5.9) X10^6/uL Hgb (13.5-17.5) g/dL Hct (41-53) % MCV (80-100) fL MCH (26-34) PG MCHC (30-36) % RDW (11.6-14.8) % Plt Count (150-400) X10^3/uL Neut % (Auto) (50-75) % Lymph % (Auto) (25-40) % [place] % (Auto) (3-14) % Eos % (Auto) (2-4) % Baso % (Auto) (0-2) % Neut # (Auto) (8508-2297) /uL Lymph # (Auto) (1368-8040) /uL [place] # (Auto) (0-900) /uL Eos # (Auto) (0-450) /uL Baso # (Auto) (0-100) /uL Sodium (137-145) mmol/L Potassium (3.4-5.1) mmol/L Chloride (98-107) mmol/L Carbon Dioxide (22-32) mmol/L BUN (9-20) mg/dL Creatinine (0.66-1.25) mg/dL Estimated GFR (>60) mL/min BUN/Creatinine Ratio (6-22) Glucose (80-110) mg/dL Lactate (0.7-2.1) mmol/L Calcium (8.4-10.2) mg/dL Total Bilirubin (0.2-1.3) mg/dL AST (17-59) IU/L ALT (<50) IU/L Alkaline Phosphatase (38-126) U/L Total Creatine Kinase (55-170) U/L CK-MB (CK-2) CK-MB (CK-2) Rel Index Troponin I (0.01-0.034) ng/mL Total Protein (6.3-8.2) g/dL Albumin (3.5-5.0) g/dL Globulin (1.7-4.1) g/dL Albumin/Globulin Ratio (1.0-2.8) Lipase (23-300) U/L Procalcitonin (<0.5) ng/mL Urine Color Yellow Urine Appearance Clear Urine pH 7.0 (4.5-8.0) Ur Specific [place] 1.020 (1.000-1.035) Urine Protein Negative (Negative) Urine Glucose (UA) Negative (Negative) g/dL Urine Ketones Negative (NEGATIVE) Urine Occult Blood 1+ H (Negative) Urine Nitrate Positive H (Negative) Urine Bilirubin Negative (NEGATIVE) Urine Urobilinogen 0.2 (0.2) E.U./dL Ur Leukocyte Esterase Trace H (NEGATIVE) Urine RBC 1-5/hpf D (0-5/HPF) Urine WBC 1-5/hpf (0-5/HPF) Ur Squamous Epith Cells 0-1 /hpf (0-5/HPF) Amorphous Sediment 2+ Urine Bacteria Few (2-10) H (None) Ur Culture Indicated? Specimen cultured SARS-CoV-2 (PCR) (Negative) Imaging Data CT scan - abdomen/pelvis: Radiologist's Impression: [address] [address] [address] Scan Report Signed Patient: Shay Ayala MR#: [id number] : 1955 Acct:[id number] Age/Sex: 65 / M Date of Service: 09/21/21 Loc: ED Accession Number: [id number] ?? Procedure: CT abdomen pelvis w con Ordering Provider: Frieda Larios D.O. PROCEDURE:? CT ABDOMEN PELVIS W CON ? INDICATIONS:? left sided abd pain ? TECHNIQUE:? After the administration of oral and IV contrast, axial sections were acquired from the lung bases to the pubic symphysis.? Coronal and sagittal reformats were performed.? For radiation dose reduction, the following was used:? automated exposure control, adjustment of mA and/or kV according to patient size. ? COMPARISON:? [facility], CT, CT ABDOMEN PELVIS W CON, 09/08/2020, 9:23. ? FINDINGS:? Image quality:? Excellent.? ? Lung bases:? Patchy reticulonodular densities in the lower lobes, concerning for pneumonic infiltrates.? ? Heart:? No significant findings. ? ? ABDOMEN: Liver:? Scattered hypoattenuating lesions are seen measuring up to 7.3 mm, which may reflect cysts or hemangiomas.? ? Gallbladder:? Cholecystectomy.? ? Biliary ducts:? Unremarkable.? ? Pancreas:? Unremarkable.? ? Spleen:? Unremarkable.? ? Adrenal Glands:? Unremarkable.? ? Kidneys and Ureters:? Symmetric enhancement without hydronephrosis.? Bilateral cortical hypoattenuating lesions are seen, most consistent with simple cysts.? In addition, 2 exophytic, upper pole lesions are seen, which demonstrate attenuation values greater than simple fluid and may represent proteinaceous or hemorrhagic cysts (ie: 2-25). ? Stomach and Bowel:? Small hiatal hernia.? No evidence of intestinal obstruction or inflammatory change.? The appendix appears normal. Peritoneum:? No abnormal intraperitoneal fluid.? No free air.? ? Ventral Wall: ? No hernia.? Abdominal Nodes:? No retroperitoneal or mesenteric adenopathy by size criteria.? Vessels:? Aorta and inferior vena cava are normal in size.? ? PELVIS: Pelvic Organs:? Redemonstrated marked enlargement of the prostate, measuring 7.4 cm in transverse dimension.? ? Bladder:? Wall thickening of the urinary bladder, which contains a Cantu catheter Pelvic Nodes: No enlarged lymph nodes.? Miscellaneous: No inguinal hernias are seen. ? 3.3 x 2 cm fat attenuation lesion in the left gluteus medius, compatible intramuscular lipoma.? ? Bones:? Multifocal degenerative change. ? ? IMPRESSION:? ? 1. Faint reticulonodular densities in the lower lobes, concerning for pneumonic infiltrates. 2. Bilateral upper pole exophytic cortical lesions, favored to represent hemorrhagic or proteinaceous cysts.? Consider renal ultrasound for further characterization as clinically warranted. 3. Prostatomegaly with wall thickening of the urinary bladder. ? ? Dictated by: Donoavn Berry M.D. on 09/21/2021 at 19:32 ? ? Approved by: Donovan Berry M.D. on 09/21/2021 at 19:40?? ECG Data Attestation: I personally reviewed and interpreted this ECG as follows: Interpretation: Sinus tachycardia with right bundle-branch block. Rate of 103 FL 162 QRS of 138 QTC of 539. Right bundle-branch is new compared to prior from 09/10/2020. EKG 2. Shows sinus rhythm with rate 86 FL 178 QRS of 140 QTC of 478. No acute changes of 1st EKG from today to 2nd. Patient did have new changes in comparison to the prior year for a MDM Narrative Medical decision making narrative: This is a 65-year-old male comes in complaint of feeling unwell, nausea and vomiting with sudden onset left-sided abdominal/flank pain. Patient does have nitrite positive urine consistent with infection he has positive leukocytosis with a white count of 22, neutrophils are 91% and absolute count was 20,000. Lactate was normal, blood cultures were obtained. CMP is negative with negative troponin as well. Patient CT shows faint densities in lower lobes concerning for pneumonic infiltrate, bilateral upper pole exophytic cortical lesions representing hemorrhagic or proteinaceous cysts with recommended renal ultrasound for follow-up and prostatomegaly with thickening of the urinary bladder. Patient was given dose of IV antibiotic his pain had resolved here in the department. Initially had suspicion for kidney stone but no clear changes that are consistent with this on his imaging. No other acute causes were found. Patient symptoms do not seem to be consistent with a cardiac cause, exam findings and history decreased suspicion for vascular cause. Patient is feeling much better at this time discharged home with antibiotics. Did note the patient had a right bundle-branch block on his EKG which was new he also needs follow-up with his primary care. Patient and are both aware of this and plan to follow up shortly. He has follow-up arranged with Urology the next 2 weeks and his primary care physician as well. Discharge Plan Departure Patient Disposition: Home Clinical Impression: Renal cyst, Pneumonia, Pyelonephritis Instructions: DI for Kidney Infection Activity Restrictions/Additional Instructions: Your imaging today shows bilateral renal cysts that should be followed up with ultrasound with your primary care physician.?? Your urine today shows infection I suspect you are developing a kidney infection or pyelonephritis. There are some changes on your imaging that also show possible pneumonia in your covered with antibiotics that should treat you for both. Take antibiotics until completely gone. You may take nausea medication 1 tablet every 6 hours as needed. Prescription sent to [facility] in [place]. Please return to the emergency department for fevers, rapidly worsening abdominal, back or flank pain, persistent vomiting, black or bloody stools, decrease or inability to drain urine from her catheter or other new or conc erning symptoms. Prescriptions: New ondansetron 4 mg tablet,disintegrating 4 mg PO QID PRN (Reason: nausea and vomiting) Qty: 5 0RF levofloxacin 750 mg tablet 750 mg PO DAILY 7 Days Qty: 7 0RF No Action metoclopramide HCl [Reglan] 10 mg tablet 10 mg PO Q6H PRN (Reason: nausea and vomiting) Qty: 10 0RF tamsulosin 0.4 mg capsule 0.4 mg PO BEDTIME Qty: 180 3RF ciprofloxacin HCl [Cipro] 250 mg tablet 250 mg PO BID Qty: 6 0RF Rx Instructions: Start morning before procedure, continue day of and day after, until medication is gone. Referrals: Natividad Persaud MD [Primary Care Provider] - Stand Alone Forms: Work Release Note
[2021-09-21 18:31] LABS: Troponin I < 0.012 ng/mL (0.01-0.034)
[2021-09-21 18:33] LABS: COVID19 -Nasal RAPID Negative (Negative)
[2021-09-21 18:43] LABS: Procalcitonin 0.03 ng/mL (<0.5)
--- NOTE | 2021-09-21 18:45 | DI.CT.S_ITS ---
PROCEDURE: CT ABDOMEN PELVIS W CON INDICATIONS: left sided abd pain TECHNIQUE: After the administration of oral and IV contrast, axial sections were acquired from the lung bases to the pubic symphysis. Coronal and sagittal reformats were performed. For radiation dose reduction, the following was used: automated exposure control, adjustment of mA and/or kV according to patient size. COMPARISON: [facility], CT, CT ABDOMEN PELVIS W CON, 09/08/2020, 9:23. FINDINGS: Image quality: Excellent. Lung bases: Patchy reticulonodular densities in the lower lobes, concerning for pneumonic infiltrates. Heart: No significant findings. ABDOMEN: Liver: Scattered hypoattenuating lesions are seen measuring up to 7.3 mm, which may reflect cysts or hemangiomas. Gallbladder: Cholecystectomy. Biliary ducts: Unremarkable. Pancreas: Unremarkable. Spleen: Unremarkable. Adrenal Glands: Unremarkable. Kidneys and Ureters: Symmetric enhancement without hydronephrosis. Bilateral cortical hypoattenuating lesions are seen, most consistent with simple cysts. In addition, 2 exophytic, upper pole lesions are seen, which demonstrate attenuation values greater than simple fluid and may represent proteinaceous or hemorrhagic cysts (ie: 2-25). Stomach and Bowel: Small hiatal hernia. No evidence of intestinal obstruction or inflammatory change. The appendix appears normal. Peritoneum: No abnormal intraperitoneal fluid. No free air. Ventral Wall: No hernia. Abdominal Nodes: No retroperitoneal or mesenteric adenopathy by size criteria. Vessels: Aorta and inferior vena cava are normal in size. PELVIS: Pelvic Organs: Redemonstrated marked enlargement of the prostate, measuring 7.4 cm in transverse dimension. Bladder: Wall thickening of the urinary bladder, which contains a Cantu catheter Pelvic Nodes: No enlarged lymph nodes. Miscellaneous: No inguinal hernias are seen. 3.3 x 2 cm fat attenuation lesion in the left gluteus medius, compatible intramuscular lipoma. Bones: Multifocal degenerative change. IMPRESSION: 1. Faint reticulonodular densities in the lower lobes, concerning for pneumonic infiltrates. 2. Bilateral upper pole exophytic cortical lesions, favored to represent hemorrhagic or proteinaceous cysts. Consider renal ultrasound for further characterization as clinically warranted. 3. Prostatomegaly with wall thickening of the urinary bladder. Dictated by: Donovan Berry M.D. on 09/21/2021 at 19:32 Approved by: Donovan Berry M.D. on 09/21/2021 at 19:40
[2021-09-21 19:00] LABS: Appearance Urine UA CLEAR; Bilirubin Urine UA NEGATIVE (NEGATIVE); Color Urine UA YELLOW; Glucose Urine UA NEGATIVE (Negative); Ketones Urine UA NEGATIVE (NEGATIVE); Leukocyte Esterase Urine UA TRACE (NEGATIVE); Nitrite Urine UA POSITIVE (Negative); Occult Blood Urine UA 1+ (Negative); Protein Urine UA NEGATIVE (Negative); Urobilinogen Urine UA 0.2 E.U./dL (0.2)
[2021-09-21 19:14] LABS: Amorphous Sediment Urine 2+; Bacteria Urine Few (2-10); Culture Indicated Urine Specimen Cultured; RBC Urine 1-5/HPF (0-5/HPF); Squamous Epithelial Cell Urine 0-1 /HPF (0-5/HPF); WBC Urine 1-5/HPF (0-5/HPF)
[2021-09-21] MEDS: cefTRIAXone 2,000 MG in SODIUM CHLORIDE 0.9% 100 ML 200 ML IV (20:07)
[2021-09-21] MEDS: ONDANSETRON 4 MG ODT PREPACK 1 BOTTLE MISC (20:20)
== END 2021-09-21 20:54 | disposition home or self-care (01) ==
PROVIDERS: Emergency Medicine; Emergency Provider Emergency Medicine; PCP Student in an Organized Health Care Education/Training Program
DX: N28.1 Cyst of kidney, acquired (principal); J18.9 Pneumonia, unspecified organism; N12 Tubulo-interstitial nephritis, not specified as acute or chronic; Z20.822 Contact with and (suspected) exposure to COVID-19
CPT/HCPCS: 36415; 74177; 80053; 81001; 82550; 83605; 83690; 84145; 84484; 85025; 87040; 87077; 87086; 87147; 87635; 93005; 93010; 96365; 96375; 99284; C9803; J0696; J2405; Q9967

== ENCOUNTER → 2021-10-10 09:55 | Outpatient (CLI) | payer OTHER, SELFPAY ==
[2021-08-18 11:04] VITALS: BMI 24.2
== END ==
PROVIDERS: PCP Student in an Organized Health Care Education/Training Program; Visit Provider Specialist
DX: R30.0 Dysuria (principal); R33.9 Retention of urine, unspecified
CPT/HCPCS: 51702; 87077; 87086

== ENCOUNTER → 2021-11-10 08:15 | Outpatient (CLI) | payer OTHER, SELFPAY ==
[2021-08-18 11:04] VITALS: BMI 24.2
== END ==
PROVIDERS: PCP Student in an Organized Health Care Education/Training Program; Visit Provider Urology
DX: R30.0 Dysuria (principal); R33.8 Other retention of urine
CPT/HCPCS: 51702; 87077; 87086; 87186

== ENCOUNTER 2021-11-13 15:23 | Emergency (ER) | payer OTHER, SELFPAY ==
[2021-08-18 11:04] VITALS: BMI 24.2
[2021-11-13] VITALS (9 sets, daily range): BP systolic 116–179; BP diastolic 66–117; PULSE 59–82; RESP 18; TEMP 36.3; O2SAT 99–100; BMI 22.5
[2021-11-13] MEDS: LIDOCAINE 2% (GLYDO) 6 ML GEL TOP (19:54)
--- NOTE | 2021-11-13 19:57 | ED_ITS ---
HPI - Male Genitourinary General Chief complaint: Urogenital-Male Stated complaint: CATH LEAKING X3 DAYS Time Seen by Provider: 11/13/21 18:18 Mode of arrival: Ambulatory History of Present Illness HPI Narrative: Patient is a 65-year-old male who presents to the emergency department today for evaluation of leaking Cantu catheter. Patient explains that he has a Cantu catheter that requires monthly change and was seen by his urologist on to have the Cantu catheter replaced. He states that he noticed that the catheter was leaking yesterday and was not getting much output. Of note, patient denies any blood in his urine or genital discomfort. He denies any fever, chills, chest pain, cough, shortness of breath, nausea, vomiting, diarrhea, constipation, abdominal pain, testicular pain, scrotal swelling, or any other concerning symptoms. No further concerns were voiced at this time. Related Data Previous Rx's Medication Instructions Recorded tamsulosin 0.4 mg capsule 0.4 mg PO BEDTIME #180 caps 03/09/21 metoclopramide HCl 10 mg tablet 10 mg PO Q6H PRN nausea and 06/05/21 (Reglan) vomiting #10 tabs ondansetron 4 mg disintegrating 4 mg PO QID PRN nausea and 09/21/21 tablet vomiting #5 tabs Allergies Allergy/AdvReac Type Severity Reaction Status Date / Time amoxicillin AdvReac Mild Verified 08/18/21 10:08 Opioids - Morphine Analogues AdvReac Mild Vomiting Verified 08/18/21 10:08 Review of Systems Constitutional Constitutional: Denies chills, Denies fatigue, Denies fever(s), Denies frequent falls, Denies lethargy and Denies weakness ENT Ears, Nose, Mouth, and Throat: Denies neck pain Cardiovascular Cardiovascular: Denies chest pain, Denies irregular heart rhythm, Denies lightheadedness, Denies palpitations, Denies dyspnea, Denies dyspnea on exertion and Denies orthopnea Respiratory Respiratory: Denies dyspnea and Denies dyspnea on exertion Gastrointestinal Gastrointestinal: Denies abdominal pain, Denies change in bowel habits, Denies diarrhea, Denies nausea and Denies vomiting Genitourinary Genitourinary: Denies hematuria, Denies flank pain, Denies urinary incontinence, Denies urinary urgency and Reports other (Leaking Cantu catheter) Musculoskeletal Musculoskeletal: Denies back pain, Denies muscle weakness, Denies neck pain, Denies numbness and Denies tingling Integumentary/Breasts Skin/Breast: Denies pruritus, Denies erythema, Denies rash and Denies wounds Neurologic Neurologic: Denies frequent falls, Denies numbness, Denies tingling and Denies weakness Endocrine Endocrine: Denies fatigue and Denies palpitations Patient History Medical History Acid reflux BPH w urinary obs/LUTS Elevated PSA History of COVID-19 Urinary retention Surgical History History of laparoscopic cholecystectomy Hx of cholecystectomy Hx of hernia repair Family History Mother Stroke Coronary artery disease Father No problems noted. Social History marital status: household members: spouse Previous occupational history: [employer] special anaya needs: No Smoking Status: Current every day smoker Tobacco: How many years used: 40 alcohol intake: former caffeine: Yes Smoking Status: Current every day smoker tobacco type: cigarettes alcohol intake frequency: holidays/special occasions only Substance Use Type: does not use Exam Narrative Exam Narrative: GENERAL: 65 year old patient appears stated age. Well-developed patient, in no acute distress. HEAD: Atraumatic. Normocephalic. EYES: Pupils equal round and reactive. Extraocular motions intact. No scleral icterus. No injection or drainage. ENT: Nose without bleeding, purulent drainage. Throat without erythema, tonsillar hypertrophy or exudate. Airway patent. NECK: Trachea midline. Non tender CARDIOVASCULAR: Regular rate and rhythm without murmurs, gallops, or rubs. RESPIRATORY: Clear to auscultation. Breath sounds equal bilaterally. No wheezes, rales, or rhonchi. GASTROINTESTINAL: Abdomen soft, non-tender, nondistended. EXTREMITIES: No edema or joint tenderness. BACK: Nontender without deformity or crepitance. No flank tenderness. NEURO: AOx3. SKIN: No rash or erythema of visible areas Initial Vital Signs Initial Vital Signs: Vital Signs Temperature 97.4 F L 11/13/21 16:17 Pulse Rate 82 11/13/21 16:17 Respiratory Rate 18 11/13/21 16:17 Blood Pressure 118/66 11/13/21 16:17 Pulse Oximetry 100 11/13/21 16:17 Oxygen Delivery Method 11/13/21 16:17 Course Course Course Narrative: Cantu catheter replaced in the emergency department. Urine dip obtained. Patient states that replacement catheter feels better. Patient states that he would like to be discharged despite not knowing the results of urine dip. Orders Ordered: Discontinued Medications Lidocaine HCl (Lidocaine 2% (Glydo) 6 Ml Gel) 6 ml TOP NOW ONE Stop: 11/13/21 19:43 Last Admin: 11/13/21 19:54 Dose: 6 ml Documented By: TEJA Vital Signs Vital signs: Vital Signs - 8 hr 11/13/21 16:17 Temperature 97.4 F L Pulse Rate 82 Respiratory Rate 18 Blood Pressure 118/66 Pulse Oximetry 100 Oxygen Delivery Method Room Air MDM - Male Genitourinary Lab Data Labs: Lab Results 11/13/21 Range/Units 22:05 Urine RBC 1-5/hpf (0-5/HPF) Urine WBC 30-100/hpf H (0-5/HPF) Ur Squamous Epith Cells 0-1 /hpf (0-5/HPF) Urine Bacteria Many (>30) H (None) Urine Mucus 2+ H (Negative) Ur Culture Indicated? Specimen cultured Urine Dip Bedside Urine Glucose Negative Bedside Urine Bilirubin - Negative Bedside Urine Ketone - Negative Urine Specific [place] 1.030 Bedside Urine Occult Blood + Bedside Urine pH 6.0 Bedside Urine Protein + 30 Bedside Urine Urobilinogen - Negative Bedside Urine Nitrite - Negative Bedside Urine Leukocytes + 70 Esterase [facility] Narrative Medical decision making narrative: Differential diagnosis to consider but not limited to leaking Cantu catheter versus urinary tract infection. Patient states that his replacement Cantu catheter feels much better here in the ER. Discussed pending urine dip and patient states that he woould like to be discharged prior to results being finalized. Discussed risks of discharge prior to finding results of urine dip, however patient still states he would like to move forward with discharge. I encouraged the patient to follow up with urology within the next 24-48 hours for further evaluation. Patient expresses understanding and agrees to plan. Strict return precautions discussed prior to discharge. Discharge Plan Departure Patient Disposition: Home Clinical Impression: Complication of Cantu catheter Instructions: How to Care for Your Cantu Catheter -- Male Activity Restrictions/Additional Instructions: Activity Restrictions/Additional Instructions: *You have been diagnosed with complication of Cantu catheter *What to do: ?? ? *Please continue to take your regular medications as directed. ? [ ] New medication prescriptions sent to your pharmacy: [ ] ? [ ] New medication written as a paper prescription ? [X] No new medications given You were evaluated in the emergency department today for Cantu catheter complications. Cantu catheter was replaced here in the ER. Urine dip results are pending, we will notify you of results when finalized. Please follow up with urology in the next few days for further evaluation and management. Do not hesitate to return to the ER if you experience fever, leaking or bloackage of the Cantu catheter, blood in your urine, or any other concerning symptoms. *Please follow up with your primary care provider in 2-3 days, call for an appointment. Let them know you were seen in the Emergency Department and that we ask that you be seen in follow up. We will electronically transmit a record of today's note if your PCP is in our system *If you do not have a primary care provider please contact the [facility] Resource line at [phone]. They will ask some questions about your medical history and help get you set up with a doctor in the community. ? *Return to Emergency Department if you should have any new, worsening or concerning symptoms, such as fever greater than 101 F, shaking chills, worsening pain, persistent vomiting or other bothersome symptoms. Prescriptions: No Action metoclopramide HCl [Reglan] 10 mg tablet 10 mg PO Q6H PRN (Reason: nausea and vomiting) Qty: 10 0RF ondansetron 4 mg tablet,disintegrating 4 mg PO QID PRN (Reason: nausea and vomiting) Qty: 5 0RF tamsulosin 0.4 mg capsule 0.4 mg PO BEDTIME Qty: 180 3RF Referrals: Natividad Persaud MD [Primary Care Provider] - Visit Report Forms: Patient Portal/API
[2021-11-13 22:11] LABS: Bacteria Urine Many (>30); RBC Urine 1-5/HPF (0-5/HPF); Squamous Epithelial Cell Urine 0-1 /HPF (0-5/HPF); WBC Urine 30-100/HPF (0-5/HPF)
[2021-11-13 22:12] LABS: Culture Indicated Urine Specimen Cultured; Mucus Urine 2+ (Negative)
== END 2021-11-13 22:23 | disposition home or self-care (01) ==
PROVIDERS: Emergency Medicine; Emergency Provider Physician Assistant; PCP Student in an Organized Health Care Education/Training Program
DX: T83.9XXA Unspecified complication of genitourinary prosthetic device, implant and graft, initial encounter (principal)
CPT/HCPCS: 81003; 81015; 87077; 87086; 87186; 99283

== ENCOUNTER → 2021-12-14 08:48 | Outpatient (CLI) | payer OTHER, SELFPAY ==
[2021-08-18 11:04] VITALS: BMI 24.2
== END ==
PROVIDERS: PCP Student in an Organized Health Care Education/Training Program; Visit Provider Specialist
DX: N40.1 Benign prostatic hyperplasia with lower urinary tract symptoms (principal); N13.8 Other obstructive and reflux uropathy; R30.0 Dysuria; R33.9 Retention of urine, unspecified
CPT/HCPCS: 51702; 87077; 87086; 87186; 99215

== ENCOUNTER 2022-03-18 15:59 | Emergency (ER) | payer OTHER, SELFPAY ==
[2021-08-18 11:04] VITALS: BMI 24.2
[2022-03-18 16:24] VITALS: BP 134/61; PULSE 58; RESP 18; TEMP 37.2; O2SAT 100; BMI 23.1
--- NOTE | 2022-03-18 19:07 | ED.MALEGU ---
HPI - Male Genitourinary General Chief complaint: Urogenital-Male Stated complaint: Cath Bleeding Time Seen by Provider: 03/18/22 19:06 Source: patient Mode of arrival: Ambulatory Limitations: no limitations History of Present Illness HPI Narrative: This is a 66-year-old male with chronic urinary retention, dyslipidemia and GERD who sees Dr. Rai for his urinary retention and has known BPH. Patient states that when he gets up and down he frequently pulls at his catheter and sometimes it pulls. He notices blood coming around the edge of the urethral meatus but no urine. He states he has not appreciated blood or clots in his urine itself. He has not had a little bit of dysuria when he goes to urinate on the inside of the penis but no testicular pain, no abdominal, no back or flank pain, no fevers or chills, no chest pain, no shortness of breath, no diarrhea constipation, no other GI or urinary symptoms sides those noted. He had his catheter changed out on February [address] Rai. He does note he stands up and down a lot and the catheter frequently gets pulled and they have trouble keeping it attached and use leg band rather than the stickers to keep the catheter attached to his leg. Patient has not had any issues with bleeding in the past from his catheter site or general. He does note he is had a gallbladder removed in the past. He also notes that his prostate may be removed in the future according to Dr. Rai. Related Data Home Medications Medication Instructions Recorded Confirmed multivitamin 1 tab PO DAILY 02/07/22 02/07/22 omeprazole 40 mg capsule,delayed 40 mg PO DAILY 02/07/22 02/07/22 release rosuvastatin 5 mg tablet 5 mg PO DAILY 02/07/22 02/07/22 Previous Rx's Medication Instructions Recorded tamsulosin 0.4 mg capsule 0.4 mg PO BEDTIME #180 caps 03/09/21 finasteride 5 mg tablet 5 mg PO DAILY #90 tabs 02/07/22 nitrofurantoin 100 mg PO Q12H 7 days #14 caps 03/18/22 monohydrate/macrocrystals 100 mg capsule (Macrobid) Allergies Allergy/AdvReac Type Severity Reaction Status Date / Time amoxicillin AdvReac Mild Verified 02/07/22 14:03 Opioids - Morphine Analogues AdvReac Mild Vomiting Verified 02/07/22 14:03 Review of Systems Review of Systems ROS Unobtainable: All systems reviewed & are unremarkable except as noted in HPI and below Patient History Medical History Acid reflux BPH w urinary obs/LUTS Elevated PSA History of COVID-19 Urinary retention Surgical History History of laparoscopic cholecystectomy Hx of cholecystectomy Hx of hernia repair Family History Mother Stroke Coronary artery disease Father No problems noted. Social History marital status: household members: spouse Previous occupational history: [employer] special anaya needs: No Smoking Status: Current every day smoker Tobacco: How many years used: 40 alcohol intake: former caffeine: Yes Smoking Status: Current every day smoker tobacco type: cigarettes alcohol intake frequency: holidays/special occasions only Substance Use Type: does not use Exam Narrative Exam Narrative: GENERAL: Alert and oriented x three, mild distress HEENT: Head normocephalic, atraumatic, EOMI, pupils reactive, face symmetric, moist mucous membranes NECK: Supple, full range of motion CARDIOVASCULAR: Regular rate and rhythm without murmurs, rubs or gallops. RESPIRATORY: Breath sounds equal bilaterally, no wheezes rales or rhonchi. ABDOMEN: Soft, nontender. Normoactive bowel sounds all 4 quadrants. No guarding or rebound, rigidity, no mass : No CVA tenderness. Male: normal external examination except for small amount of dried blood at the urethral meatus and edge of penis, there is some dried blood on the catheter itself, urine is dark but no clots or obvious blood in the catheter tubing or back., no penile discharge or lesions, testicles non-tender, cremasteric reflex intact, no inguinal hernias noted. EXTREMITIES: Normal range of motion, no clubbing or edema. Neurovascularly intact NEUROLOGICAL: Cranial nerves II through XII grossly intact. Moving all extremities SKIN: Warm, dry, no petechiae, no rashes or lesions. Initial Vital Signs Initial Vital Signs: Vital Signs Temperature 98.9 F 03/18/22 16:24 Pulse Rate 58 L 03/18/22 16:24 Respiratory Rate 18 03/18/22 16:24 Blood Pressure 134/61 03/18/22 16:24 Pulse Oximetry 100 03/18/22 16:24 Oxygen Delivery Method 03/18/22 16:24 Course Orders Ordered: Discontinued Medications Nitrofurantoin Macrocrystals (Nitrofurantoin Er 100 Mg Capsule) 100 mg PO NOW ONE Stop: 03/18/22 20:02 Last Admin: 03/18/22 20:15 Dose: 100 mg Documented By: TEJA Vital Signs Vital signs: Vital Signs - 8 hr 03/18/22 16:24 Temperature 98.9 F Pulse Rate 58 L Respiratory Rate 18 Blood Pressure 134/61 Pulse Oximetry 100 Oxygen Delivery Method Room Air MDM - Male Genitourinary Lab Data Labs: Lab Results 03/18/22 Range/Units 19:06 Urine Color Yellow Urine Appearance Cloudy Urine pH 6.0 (4.5-8.0) Ur Specific [place] 1.020 (1.000-1.035) Urine Protein 2+ H (Negative) Urine Glucose (UA) Trace H (Negative) g/dL Urine Ketones Negative (NEGATIVE) Urine Occult Blood 2+ H (Negative) Urine Nitrate Positive H (Negative) Urine Bilirubin Negative (NEGATIVE) Urine Urobilinogen 0.2 (0.2) E.U./dL Ur Leukocyte Esterase 3+ H (NEGATIVE) Urine RBC 1-5/hpf (0-5/HPF) Urine WBC 10-30/hpf H (0-5/HPF) Amorphous Sediment 2+ Urine Bacteria Many (>30) H (None) Ur Culture Indicated? Specimen cultured MDM Narrative Medical decision making narrative: This is a 66-year-old male who likely has bleeding from his catheter secondary to traumatic pulling. Catheter still in place draining appropriately. Urine was sent to evaluate for infection. Discharge Plan Departure Patient Disposition: Home Clinical Impression: Cantu catheter problem Activity Restrictions/Additional Instructions: Please follow-up with Dr. Rai. I suspect the bleeding is from trauma from her catheter being pulled. Does appear to be draining appropriately. Your urine sample does show infection. Prescription sent to [facility] in [place]. Please return for fevers, if you are not able to drain any urine from your catheter, if there are large clots or signs of obstruction of the catheter tubing, new testicular or genital pain, new abdominal, back or flank pain, persistent vomiting or other new or concerning changes. Prescriptions: New nitrofurantoin monohyd/m-cryst [Macrobid] 100 mg capsule 100 mg PO Q12H 7 Days Qty: 14 0RF Rx Instructions: must administer with a meal/food No Action tamsulosin 0.4 mg capsule 0.4 mg PO BEDTIME Qty: 180 3RF rosuvastatin 5 mg tablet 5 mg PO DAILY multivitamin Tablet 1 tab PO DAILY omeprazole 40 mg capsule,delayed release(DR/EC) 40 mg PO DAILY finasteride 5 mg tablet 5 mg PO DAILY Qty: 90 3RF Referrals: Natividad Persaud MD [Primary Care Provider] - Visit Report Forms: Patient Portal/API
[2022-03-18 19:44] LABS: Appearance Urine UA CLOUDY; Bilirubin Urine UA NEGATIVE (NEGATIVE); Color Urine UA YELLOW; Glucose Urine UA TRACE g/dL (Negative); Ketones Urine UA NEGATIVE (NEGATIVE); Leukocyte Esterase Urine UA 3+ (NEGATIVE); Nitrite Urine UA POSITIVE (Negative); Occult Blood Urine UA 2+ (Negative); Protein Urine UA 2+ (Negative); Urobilinogen Urine UA 0.2 E.U./dL (0.2)
[2022-03-18 19:52] LABS: Amorphous Sediment Urine 2+; Bacteria Urine Many (>30); Culture Indicated Urine Specimen Cultured; RBC Urine 1-5/HPF (0-5/HPF); WBC Urine 10-30/HPF (0-5/HPF)
[2022-03-18] MEDS: NITROFURANTOIN ER 100 MG CAPSULE PO (20:15)
== END 2022-03-18 20:55 | disposition home or self-care (01) ==
PROVIDERS: Emergency Provider Emergency Medicine; Family Provider Student in an Organized Health Care Education/Training Program; PCP Student in an Organized Health Care Education/Training Program
DX: T83.9XXA Unspecified complication of genitourinary prosthetic device, implant and graft, initial encounter (principal); N40.1 Benign prostatic hyperplasia with lower urinary tract symptoms; R33.8 Other retention of urine
CPT/HCPCS: 81001; 87077; 87086; 87186; 99283

== ENCOUNTER → 2022-03-27 10:00 | Outpatient (CLI) | payer OTHER, SELFPAY ==
[2021-08-18 11:04] VITALS: BMI 24.2
== END ==
PROVIDERS: Family Provider Student in an Organized Health Care Education/Training Program; PCP Student in an Organized Health Care Education/Training Program; Visit Provider Specialist
DX: N40.1 Benign prostatic hyperplasia with lower urinary tract symptoms (principal); N13.8 Other obstructive and reflux uropathy; R33.9 Retention of urine, unspecified
CPT/HCPCS: 51702; 87086; 99215

== ENCOUNTER → 2022-04-24 11:06 | Outpatient (CLI) | payer OTHER, SELFPAY ==
[2021-08-18 11:04] VITALS: BMI 24.2
== END ==
PROVIDERS: Family Provider Student in an Organized Health Care Education/Training Program; PCP Student in an Organized Health Care Education/Training Program; Visit Provider Specialist
DX: N40.1 Benign prostatic hyperplasia with lower urinary tract symptoms (principal); N13.8 Other obstructive and reflux uropathy; R33.9 Retention of urine, unspecified; Z97.8 Presence of other specified devices
CPT/HCPCS: 51702; 87077; 87086; 87186; 99215

== ENCOUNTER → 2022-04-28 09:16 | Outpatient (CLI) | payer OTHER, SELFPAY ==
[2021-08-18 11:04] VITALS: BMI 24.2
[2022-04-28 09:59] LABS: COVID19 -Nasal RAPID Negative (Negative)
== END ==
PROVIDERS: Family Provider Student in an Organized Health Care Education/Training Program; PCP Student in an Organized Health Care Education/Training Program; Visit Provider Specialist
DX: Z20.822 Contact with and (suspected) exposure to COVID-19 (principal)
CPT/HCPCS: 87635; C9803

== ENCOUNTER 2022-05-01 10:56 | Inpatient (IN) | payer OTHER, SELFPAY ==
[2021-08-18 11:04] VITALS: BMI 24.2
[2022-04-24 12:49] VITALS: BMI 25.3
[2022-05-01] VITALS (10 sets, daily range): BP systolic 114–150; BP diastolic 63–80; PULSE 70–83; RESP 10–27; TEMP 36.2–36.5; O2SAT 96–100; BMI 24.2
--- NOTE | 2022-05-01 | PATH_ITS ---
[facility] Accession Number: [id number] . 01 Material submitted: . prostate - PROSTATE . 01 Diagnosis: Prostate Gland, Prostatectomy: Isolated focus of invasive adenocarcinoma, acinar type, Nazlini score of 3+3=6 (see below for additional carcinoma parameters). Extensive glandular and stromal nodular hyperplasia. . Carcinoma summary report: - Prostate size: 9.0 x 7.2 x 4.1 cm. - Histologic type: Acinar adenocarcinoma. - Histologic grade: Grade group 1 (Nazlini score of 3+3=6). - Intraductal carcinoma: Not identified. - Tumor quantitation: Estimated percentage of prostate involved by tumor is less than 1% (greatest dimension of nodule is 6 mm). - Extraprostatic extension: Not identified. - Urinary bladder neck invasion: Not identified. - Lymphovascular invasion: Not identified. - Perineural invasion: Not identified. - Margin status: All margins negative for invasive carcinoma. - Pathologic stage: pT2 [facility] 05/05/2022 1656 Local . 01 Comment: *Immunostains for the basal marker, p63/HMWK, and the prostate carcinoma marker, P504S, are performed on block A9, which by routine H/E stain, scattered round glands with an infiltrative type architecture are identified. These glands are mildly atypical with sometimes prominent nucleoli. The p63/HMWK is negative around some of these atypical glands of interest, and the P504S in these same glands is variably positive. These features are supportive of the interpretation of an adenocarcinoma. . Extensive stromal nodular hyperplasia is present, as well; however, hypercellularity or significant cytologic atypia are not appreciated. . Sections from block A9 are also reviewed by Dr. Lilian Michael, who concurs with the given interpretation. . * This test was developed and its performance characteristics determined by [facility]. It has not been cleared or approved by the U.S. Food and Drug Administration. The FDA has determined that such clearance or approval is not necessary. This test is used for clinical purposes. It should not be regarded as investigational or for research. . 01 Electronically signed: . Ignacia Vidal MD, Pathologist NPI- [id number] . 01 Gross description: . The specimen is received in formalin labeled with the patient's name, , and prostate, and consists of a distorted, diffusely nodular prostate with no vas deferens or seminal vesicles grossly identified. A possible urethra is identified; however, due to distortion of the specimen, no margins can be grossly identified. The specimen weighs 155 grams and measures 9.0 x 7.2 x 4.1 cm. Two long white sutures extend from the specimen with no designation per the requisition. The specimen is serially sectioned to reveals a diffusely nodular angel firm cut surface with no lesions grossly identified. Cupola Patcher sections are submitted in cassettes A1-A15. ([id number]) /MRV 05/02/2022 Pending sale to [facility] . 01 Pathologist provided ICD-10: C61 . 01 CPT . 382592, E93870, R95909 Specimen Comment: A courtesy copy of this report has been sent to [phone] Performed at: 01 [facility] [address] [place] [address], [place], [place] [id number] MD Lopez Briggs MD Phone: [phone]
[2022-05-01] MEDS: SODIUM CHLORIDE IRRIG SOLUTION 500 ML, NEOMYCIN/POLYMYXIN B IRR 1 ML IRR (11:50)
[2022-05-01] MEDS: LACTATED RINGERS 1,000 ML 21 ML IV ×2 (12:02→14:39)
[2022-05-01] MEDS: levoFLOXacin 500 MG/100 ML PIGGYBACK 100 MG IV (12:03)
[2022-05-01 12:24] LABS: Hematocrit 44.2 % (41-53); Hemoglobin 15.1 g/dL (13.5-17.5)
[2022-05-01 12:37] LABS: BUN Creatinine Ratio 17.7 (6-22); Blood Urea Nitrogen 14 mg/dL (9-20); Calcium 9.4 mg/dL (8.4-10.2); Carbon Dioxide 29 mmol/L (22-32); Chloride 107 mmol/L (98-107); Estimated Glomerular Filt Rate > 60 mL/min (>60); Glucose 90 mg/dL (80-110); HEMOLYSIS < 15 (0-50); Sodium 141 mmol/L (137-145)
--- NOTE | 2022-05-01 12:52 | PM.PREOP ---
Pre-operative Note COVID-19 Criteria for continued procedure: Expected advancement of disease process, Increased loss of function, Continuing or worsening of significant or severe pain, Deterioration of the patient's condition or overall health, Delay expected to result in less-positive ultimate med/surg outcome and Non-surgical alternatives not available or appropriate per current SOC Interval Note History & Physical reviewed/Exam performed by Physician: Yes Changes to H&P: No
[2022-05-01] MEDS: TRANEXAMIC ACID 1,000 MG in SODIUM CHLORIDE 0.9% 100 ML 200 MG IV (14:00)
--- NOTE | 2022-05-01 14:10 | SUR.OPER ---
Supine on padded OR bed, head on pillow, arms secured on padded arm boards at <90 degrees abduction, legs uncrossed, safety belt at thigh, tape over blanket over lower legs.
[2022-05-01] MEDS: BUPIVACAINE LIPOSOME 266 MG/20 ML VIAL INJ (14:17)
[2022-05-01] MEDS: BUPIVACAINE 0.5% (PF) 30 ML, EPINEPHrine 0.15 MG INJ (14:17)
--- NOTE | 2022-05-01 16:17 | P.OP_ITS ---
Operative Date/Time/Diagnoses Date of procedure: 05/01/22 Time of procedure: 16:05 Pre-op diagnosis: 1. Urinary retention. 2. Failure multiple voiding trials on medical therapy. Post-op diagnosis: same Procedure & Clinicians Procedure: 1. Simple open prostatectomy. Same procedure as scheduled: Yes Indications: 1. Urinary retention. 2. Failure of multiple voiding trials on medical therapy. Surgeon: Daquan Rai Precision Layout Worker: Lyn Sanchez Click Yes if Unassisted: No Anesthesia Type: General and Spinal (Duramorph spinal, 0.5% Marcaine with epinephrine, and 1.33% Exparel.) Operative Notes Findings: Following successful placement of Duramorph spinal anesthesia the patient was positioned in supine was provided general anesthesia. The abdomen, genitalia, and groin were then prepped and draped sterile fashion. A 22 Anguillan Cantu catheter was inserted into the bladder and the balloon inflated 20 cc. The bladder was then filled with 300 cc of sterile normal saline. A midline infraumbilical incision was then made above the pubic symphysis and carried out through the layers the midline lower abdominal wall using combination of sharp, blunt, and cautery technique. The retropubic space of Retzius and pelvic retroperitoneal space was then entered. The anterior in severe aspects of the distended bladder were then clear to loosely adherent fat. A solution 0.5% Marcaine with epinephrine was then used to infiltrate the midline bladder wall from midline dome to bladder neck. A cystotomy was then created in bladder contents drained. The cystotomy was extended the length of the anesthetized segment. Same solution of 0.5% Marcaine with epinephrine was then used to infiltrate the bladder neck circumferentially taking care to remain close to the posterior deflection of the massive intravesical median lobe. The ureteral orifices were readily identified and life at least 1 cm proximal to the mucosal division point which was conducted with the cautery pen after circumferential infiltration with local anesthetic. The appropriate plane was then developed using blunt and cautery technique between the fibers of the bladder neck in the adenoma. Meticulous blunt, sharp, and cautery dissection were carried out circumferentially to dissect the prostate adenoma from within the prostate. A 0 Vicryl with large needle were utilized to lyse mobilize had no carefully delivered from the confines of the prostate capsule. Prostatic fossa was then packed with a lap sponge. After 5 minutes the last mentioned removed search for hemostasis was undertaken. There were several L identified at the margins of the bladder neck. Several [id number] of 2-0 Monocryl were placed taking care to note the position of the ureteral orifices bilaterally and avoid them. Hemostasis was excellent. A [address] hemat[address] catheter was then inserted in the lower urinary tract over catheter guide and manual guidance the tip was positioned within the bladder in the catheter guide removed. The cystotomy was then closed utilizing a inner intermittently locking muscular mucosal run followed by a Lembert vertical mattress reapproximating the seromuscular layer. The bladder was then irrigated vigorously to light pink return. He was then placed to gravity drainage. A 15 Anguillan fenestrated Harinder drain was then positioned in the space of Retzius through a separate stab incision to the right of midline incision. The drain was secured level skin with 2-0 silk utilizing a Colin sandal technique per routine. The midline rectus fascia was then closed using running 0 PDS. Each suture was started at the apex and then was run meeting proximally in the midline where the 2 or secured to 1 another. The subcutaneous Karen's fascia was then reapproximated using a running 2-0 Vicryl. The skin was reapproximated using a running subcuticular 4-0 Monocryl. Small Telfa was applied to the incision line and the drain site. Over this transparent Op site was applied as a final dressing. Cantu catheter was secured to gravity drainage in the drain to bulb self suction. The patient was then awakened, transferred to [facility], then transferred to PACU in stable condition. Closure Type: primary Specimen(s): other (Prostate adenoma.) Applied: catheter (Three-way 22 Anguillan hematuria catheter.) Estimated Blood Loss (mL): 250 Blood products transfused: none Complications: none Post-operative Condition: stable Disposition: PACU Plan for aftercare: Transfer to acute care following PACU.
[2022-05-01] MEDS: OXYCODONE IR 5 MG TABLET PO (16:51)
[2022-05-01] MEDS: LACTATED RINGERS 1,000 ML 125 ML IV (17:10)
[2022-05-01] MEDS: ACETAMINOPHEN 325 MG TABLET 650 MG PO (21:20)
[2022-05-01] MEDS: TAMSULOSIN 0.4 MG CAPSULE PO (21:21)
[2022-05-01] MEDS: ATORVASTATIN 20 MG TABLET 10 MG PO (21:21)
[2022-05-02] MEDS: LACTATED RINGERS 1,000 ML 125 ML IV (01:35)
[2022-05-02 05:31] VITALS: BP 138/67; PULSE 77; RESP 20; TEMP 36.9; O2SAT 98
[2022-05-02] MEDS: PANTOPRAZOLE DR 40 MG TABLET PO (07:23)
--- NOTE | 2022-05-02 07:50 | PM.PN.1 ---
Subjective Subjective Date Patient Seen: 05/02/22 Time Patient Seen: 07:15 Interval history: The patient is postoperative day 1 status post simple open prostatectomy for urinary retention. He reports no complaints through the night. He, however, is asking the nurse at bedside for Tylenol for incisional pain. He states he only has pain when he coughs. He was instructed in use of a pillow for abdominal wall compression with coughing or deep breathing. He is tolerating p.o.. He is not had a bowel movement. Exam Vital Signs (past 8 hours): - 05/02/22 05:31 Temperature 98.4 F Pulse Rate 77 Respiratory Rate 20 Blood Pressure 138/67 Pulse Oximetry 98 Oxygen Delivery Method Room Air Narrative Exam Narrative: The patient is sitting upright in bed and in no distress. Chest-equal and unlabored expansion bilaterally. Heart-normal sinus rhythm. Abdomen-dressings are knee tacked drain is intact with scant serosanguineous output. Cantu-inflow was plugged. Outflow his room color outflow with few small clots. Objective Labs Result Diagrams: 05/01/22 12:10 05/01/22 12:10 Labs: Laboratory Results - last 24 hr 05/01/22 05/01/22 05/01/22 12:10 12:10 12:10 Hgb 15.1 Hct 44.2 Sodium 141 Potassium 4.0 Chloride 107 Carbon Dioxide 29 BUN 14 Creatinine 0.79 Estimated GFR > 60 BUN/Creatinine Ratio 17.7 Glucose 90 Calcium 9.4 Blood Type O Negative Antibody Screen Negative PFSH Medical History Acid reflux Arthritis BPH w urinary obs/LUTS Chronic indwelling Cantu catheter Elevated PSA History of COVID-19 (06/05/21) HLD (hyperlipidemia) Urinary retention Surgical History (Updated 04/24/22 @ 13:10 by Precious Monte RN) History of laparoscopic cholecystectomy Hx of hernia repair Family History Mother Stroke Coronary artery disease Father No problems noted. 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 [employer] special anaya needs: No Smoking Status: Current every day smoker Tobacco: How many years used: 40 alcohol intake: current caffeine: Yes Assessment & Plan Assessment & Plan narrative: Assessment: 1. Stable postoperative day 1 status post simple open prostatectomy. 2. Pathology pending. Plan: 1. Increase diet and activity. 2. Encouraged liberal consumption of fluids. 3. Follow-up pathology when final. Time Spent With Patient Critical Care time: I spent a total of [] minutes of critical care time on this patient's care today; this time is exclusive of procedural time. Quality VTE Deep Vein Thrombosis/Pulmonary Embolism Present on Admission: No
[2022-05-02 08:48] VITALS: BP 119/76; PULSE 79; RESP 18; TEMP 37.3; O2SAT 97
[2022-05-02] MEDS: ENOXAPARIN 40 MG/0.4 ML SYRINGE SUBCUT (10:00)
[2022-05-02] MEDS: BISACODYL 10 MG SUPP PR (10:00)
--- NOTE | 2022-05-02 12:05 | CM.DANOTE ---
Initial Discharge Assessment Note: Case reviewed, met with patient. Introduced self and role. Payer: Dahiana Driver PCP: Natividad Persaud 66 year old male admitted yesterday for a planned prostatectomy. Dr Rai in earlier this morning for this POD#1. Patient lives with spouse in their own home. He also works at [employer] and is independent in his care. Plan: When medically/surgically cleared, return home to care of spouse. SEJ Discharge Planning/Care Management CM Discharge Assessment Start: 05/02/22 11:35 Freq: Status: Active Protocol: Document 05/02/22 11:35 (Rec: 05/02/22 12:04 [id number]) Discharge Planning Assessment Assigned Electric Scoop Operator Liliana Montilla RN/KEP Advance Directives? 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 Is patient alert and oriented? Yes Needs Assistance With Home Chores / Shopping Caregiver for Another No Barriers to Discharge No Discharge Plan Home Transportation Arrangement Spouse Referrals Initiated None needed Whiteboard Updated in Patient Room with Yes name and ext. # of Electric Scoop Operator Review Status In Process Next Review Type Continued Stay Review Pre-Anesthesia Assessment Start: 04/24/22 12:49 Freq: Status: Active Protocol: Document 04/24/22 12:49 [facility] (Rec: 04/24/22 13:22 [facility] [id number]) Pre-Anesthesia Assessment Preferred Name Kirk Patient Information Reviewed Via Phone Assessment Assessment Completed With Patient Comment COVID screen @ 04/28/22 Primary Care Provider Natividad Persaud Seen Specialist in Last 12 Months Yes Specialist Seen Urologist Primary Language Honduran Preferred Language Honduran Contract Administration Coordinator Required No Height 200.66 cm Weight 102.058 kg Body Mass Index (BMI) 25.3 Hearing Ability Normal Visual Assist Glasses Dentition Type Full- Upper & Lower Barriers to Learning None Hx Anesthesia Reactions No Hx Family Anesthesia Reaction No Hx Malignant Hyperthermia No Hx Blood Transfusions No Hx Blood Transfusion Reaction No Anesthesia Review Requested No Medical Billing And Coding Instructor No alcohol intake current alcohol intake frequency holidays/special occasions only Smoking Status Current every day smoker Tobacco type cigarettes Smoking packs per day 1 Substance Use Type does not use Pain Present Denied Pain History of Falling (Recent or History of No ) Patient is completely paralyzed or No completely immobile Mental Status Oriented to own ability Comment Recent issue with balance in the last 6 months Is patient on oxygen? No Does patient have ROGEL/SOB No Hx Sleep Apnea No CPAP/BIPAP use not prescribed Currently Taking a Beta Dale No Hx Chest Pain No Hx SOB No Hx Syncope or Dizziness No Anti-Coagulant Therapy No Has a Program Technician No Cardiac Testing No Hx Pacemaker/ICD No Pacemaker Rep Required? No Cardiac Clearance Received Not Applicable Diet Type At Home Regular Dysphagia No Gastrointestinal Symptoms Fecal Incontinence Urinary Catheter Present Yes Hx Urinary Self Catheterization No Diabetes No Hx Drug Resistant Organism No Presence of External or Internal Medical No Devices Have you had any close contact with No someone diagnosed with COVID-19? Received a COVID vaccine? Yes: J AND J Received all doses? Yes Marital Status Lives With spouse,children Current Living Arrangements House Support System Child/Children,Spouse Does the Patient Have Assistance After Yes Surgery Patient Discharge Plan Description Return Home Comment Pt advised 2 day length of stay per surgeon Feels Safe in Current Environment Yes Been Physically Hurt or Threatened By a No Person in Current Environment Do you have thoughts of harming yourself None or others? Are you currently considering suicide? No Do you have a plan to hurt yourself or No Plan others? Do You Have Any Spiritual Beliefs That No May Affect Your HC Choices? Do You Have Any Cultural Practices That No May Affect Your HC Choices? Who Can We Speak to About Patient's Care Family, friends Identifying Code for Release of Patient Declines to issue Information Health Care Proxy/Next of Kin Shobha () Health Care Proxy Emergency Contact Name Shobha Ayala Emergency Contact Advance Directives? Yes Advance Directives on File No Requested Patient Bring Advanced Yes Directives DOS Power of Supervisor Securities Vault No PAC Instructions Medications to take/avoid,No ETOH/petroleum product on skin DOS,NPO,Pre-surgical wash, Sensory aids,Sturdy shoes/ comfortable clothes,Do not bring valuables and remove jewelry
[2022-05-02 13:13] VITALS: BP 108/66; PULSE 95; RESP 18; TEMP 37.1; O2SAT 99
[2022-05-02] MEDS: ONDANSETRON 4 MG/2 ML INJ IV (13:25)
--- NOTE | 2022-05-02 17:01 | DI.CT.S_ITS ---
PROCEDURE: CT PEL WO CON INDICATIONS: Catheter dysfunction status post prostatectomy. TECHNIQUE: After the administration of oral contrast, 5 mm thick sections acquired from the iliac crests to the symphysis. 5 mm coronal and sagittal reformats were then performed. For radiation dose reduction, the following was used: automated exposure control, adjustment of mA and/or kV according to patient size. COMPARISON: None. FINDINGS: Image quality: Excellent. Peritoneum and bowel: Several small foci of preperitoneal gas and low-density fluid are present. There is a low anterior pelvic drain. Appendix and visible bowel loops are within normal limits. Genitourinary: The urinary bladder is diffusely decompressed and contains a balloon of a Cantu catheter. The wall is circumferentially thickened. There is a small amount of gas superiorly in the urinary bladder. The ureters are symmetrically distended to the level of the UVJ bilaterally. No obstructing calcifications are visible. Cantu catheter tubing traverses the prostate bed and appears normal. There is slightly heterogeneous soft tissue and several foci of gas in the prostate bed from reportedly recent surgical intervention. Nodes and vessels: Mildly prominent bilateral external iliac, internal iliac, and right common iliac chain lymph nodes. Vasculature is normal caliber. Bones: Several mixed lucent and sclerotic lesions in the iliac wings bilaterally. Metastatic disease cannot be excluded. Miscellaneous: No inguinal hernias. Left lateral gluteal intramuscular lipoma. IMPRESSION: 1. Cantu catheter appears in appropriate position. 2. Urinary bladder demonstrates a diffusely thickened wall and contains no fluid. 3. The ureters are dilated to the UVJ level bilaterally, potentially obstructed by diffuse bladder wall thickening/edema. 4. Expected appearance post prostatectomy. Dictated by: Elizabeth Limon M.D. on 05/02/2022 at 21:26 Approved by: Elizabeth Limon M.D. on 05/02/2022 at 21:35
[2022-05-02 17:42] VITALS: BP 140/72; PULSE 83; RESP 16; TEMP 37.2; O2SAT 97
[2022-05-02] MEDS: ATORVASTATIN 20 MG TABLET 10 MG PO (20:21)
[2022-05-02] MEDS: TAMSULOSIN 0.4 MG CAPSULE PO (20:22)
[2022-05-02] MEDS: OXYCODONE IR 5 MG TABLET PO (20:22)
[2022-05-02 21:00] VITALS: BP 137/64; PULSE 93; RESP 18; TEMP 37.6; O2SAT 97
[2022-05-03 02:00] VITALS: BP 157/85; PULSE 87; RESP 14; TEMP 36.9; O2SAT 94
[2022-05-03] MEDS: OXYCODONE IR 5 MG TABLET PO (03:55)
[2022-05-03] MEDS: ONDANSETRON 4 MG/2 ML INJ IV (05:31)
[2022-05-03] MEDS: PANTOPRAZOLE DR 40 MG TABLET PO (05:31)
--- NOTE | 2022-05-03 07:56 | P.DS_ITS ---
History of Present Illness History of Present Illness Date Patient Seen: 05/03/22 Time Patient Seen: 07:25 Chief complaint: Prostatectomy Narrative: Shay is a 66-year-old male admitted on 05/01/2022 for schedule simple open prostatectomy for management urinary retention. Discharge Providers Provider Date of admission: 05/01/22 10:56 Discharge Date: 05/03/22 Primary care physician: Natividad Persaud MD Discharge provider: Daquan Rai MD Summary Hospital Course Discharge Diagnosis: 1. Urinary retention. Hospital Course: The patient was admitted on 05/01/2022 and underwent simple spinal general anesthesia. His postoperative course was overall unremarkable. He tolerated a general diet and p.o. fluids the evening immediately postoperative. He regained bowel function and ability to ambulate and transfer independently the morning of postoperative day 1. The patient was provided routine post prostatectomy activity, hygiene, and driving instructions/restrictions. Pathology was pending at discharge. Exam Vital Signs (past 8 hours): - 05/03/22 02:00 Temperature 98.5 F Pulse Rate 87 Respiratory Rate 14 Blood Pressure 157/85 H Pulse Oximetry 94 Oxygen Flow Rate 0 Oxygen Delivery Method Room Air Oxygen Flow Rate 0 Narrative Exam Narrative: The patient is sitting comfortably in the bedside chair and in no distress. Abdomen-soft, mild incisional tenderness. Incisional dressing and NIC drain are intact. The latter with scant serosanguineous output. Hohtl-myuyq-wie inflow was plugged. Outflow as light pauline color without clots. Extremities-no pallor, edema, cyanosis. Objective Labs Result Diagrams: 05/01/22 12:10 05/01/22 12:10 [facility] Medical History Acid reflux Arthritis BPH w urinary obs/LUTS Chronic indwelling Cantu catheter Elevated PSA History of COVID-19 (06/05/21) HLD (hyperlipidemia) Urinary retention Surgical History (Updated 04/24/22 @ 13:10 by Precious Monte RN) History of laparoscopic cholecystectomy Hx of hernia repair Family History Mother Stroke Coronary artery disease Father No problems noted. 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[employer] special anaya needs: No Smoking Status: Current every day smoker Tobacco: How many years used: 40 alcohol intake: current caffeine: Yes Discharge Assessment & Plan Assessment and Plan Assessment: 1. Stable postoperative day 2. Status post simple open prostatectomy. 2. Patient with indwelling Cantu catheter at discharge. 3. Pathology pending. Plan of Treatment: 1. Discharge home today. 2. Outpatient supervised voiding trial will be scheduled through the [facility] approximately 2 weeks. 3. Follow-up in discuss surgical pathology when final. Discharge Plan Discharge Plan Patient Disposition: Home Provider Discharge Comment: Contact the urology clinic to schedule outpatient follow-up appointments. Discharge orders & Medications Prescriptions: New oxycodone 5 mg Tablet 5 mg PO Q4H PRN (Reason: Pain, Moderate (4-6)) Qty: 15 0RF enoxaparin [Lovenox] 40 mg/0.4 mL Syringe 40 mg SUBCUT DAILY Qty: 12 0RF ciprofloxacin HCl 250 mg tablet 250 mg PO Q12H Qty: 6 0RF Rx Instructions: Begin the morning of the day prior to scheduled catheter removal. Continued acetaminophen 650 mg Tablet Extended Release 650 mg PO DAILY PRN (Reason: Pain) rosuvastatin 5 mg tablet 5 mg PO QPM multivitamin Tablet 1 tab PO DAILY omeprazole 40 mg capsule,delayed release(DR/EC) 40 mg PO QPM Discontinued tamsulosin 0.4 mg capsule 0.4 mg PO BEDTIME Qty: 180 3RF Follow up/Referrals: Natividad Persaud MD [Primary Care Provider] - Diet/Activity/Treatments Diet: Diet as Tolerated Activity: Do not lift objects heavier than 15 lb x 4 weeks. No driving x2 weeks. Catheter: 2-way Cantu Catheter comment: Use large bag in-home and at night. Usually bag when out of home. Skin/Wound/Dressing Care Report to your healthcare provider any signs of infection, such as:: chills, fever, night sweats, increased pain, unusual drainage and unusual redness Other wound treatment: Leave incision open to air. No submersion in water x2 weeks. May shower daily. Visit Report/Discharge Packet Instructions: DI for Prescription Opioid Use Stand Alone Forms: Surgery Discharge Discharge Data Primary Care Provider: Natividad Persaud Quality VTE Deep Vein Thrombosis/Pulmonary Embolism Present on Admission: No
[2022-05-03 08:05] VITALS: BP 133/76; PULSE 107; RESP 18; TEMP 36.8; O2SAT 96
[2022-05-03] MEDS: MULTIVITAMIN 1 TABLET 1 TAB PO (08:55)
--- NOTE | 2022-05-03 10:32 | PC.NURSE ---
08:50 Felton drain removed and tolerated well, abdominal dressing removed and incision open to air.
--- NOTE | 2022-05-03 11:20 | PC.NURSE ---
Addendum entered by Lauren Santiago R.N. 05/03/22 12:00: 11:45 Irrigated colmenares catheter with normal saline before pt d/c home. Original Note: 10:[address] Rai via telephone to notify that colmenares catheter is leaking around meatus. Dr. Rai states, this is likely from bladder spasms and should start to slow down, you can irrigate and instruct pt to wear adult disposable briefs, colmenares catheter was draining pauline colored urine when assessed this morning.
== END 2022-05-03 11:57 | disposition home or self-care (01) | DRG 717 ==
PROVIDERS: Admitting Provider Specialist; Family Provider Student in an Organized Health Care Education/Training Program; PCP Student in an Organized Health Care Education/Training Program; Referring Provider Specialist; Visit Provider Specialist
PROC: 0VT00ZZ Resection of Prostate, Open Approach (ICD-10-PCS; principal; 2022-05-01 12:45)
DX: N40.1 Benign prostatic hyperplasia with lower urinary tract symptoms (principal); N13.8 Other obstructive and reflux uropathy; E78.5 Hyperlipidemia, unspecified; K21.9 Gastro-esophageal reflux disease without esophagitis; Z20.822 Contact with and (suspected) exposure to COVID-19; Z97.8 Presence of other specified devices
CPT/HCPCS: 36415; 55821; 72192; 80048; 82962; 85014; 85018; 86850; 86900; 86901; C9290; J0171; J0330; J1170; J1650; J1956; J2274; J2405; J2704; J3010

== ENCOUNTER → 2022-05-16 08:42 | Outpatient (CLI) | payer OTHER, SELFPAY ==
[2022-05-01 17:30] VITALS: BMI 24.2
--- NOTE | 2022-05-16 08:43 | DI.RAD.S_ITS ---
PROCEDURE: XR KUB INDICATIONS: post operative simple open prostatectomy TECHNIQUE: One view of the abdomen acquired. COMPARISON: [facility], CR, XR ACUTE ABDOMEN SERIES, 09/10/2020, 19:43. [facility], CT, CT ABDOMEN PELVIS W CON, 09/21/2021, 19:11. [facility], CT, CT PEL WO CON, 05/02/2022, 17:10. FINDINGS: Surgical changes and devices: Cholecystectomy clips are seen. Bowel: Bowel gas pattern is normal. Soft tissues: No suspicious abdominal calcifications. Visualized solid organ contours appear normal in size. Bones: No suspicious bony lesions. Age-appropriate bony degenerative changes are seen. IMPRESSION: Nonobstructive bowel gas pattern. Postoperative and degenerative changes are seen. Dictated by: Fer Webb M.D. on 05/16/2022 at 14:06 Approved by: Fer Webb M.D. on 05/16/2022 at 14:07
== END ==
PROVIDERS: Family Provider Student in an Organized Health Care Education/Training Program; PCP Student in an Organized Health Care Education/Training Program; Referring Provider Specialist; Visit Provider Specialist
DX: R33.9 Retention of urine, unspecified (principal); Z97.8 Presence of other specified devices
CPT/HCPCS: 74018

== ENCOUNTER → 2022-06-02 09:28 | Outpatient (CLI) | payer OTHER, SELFPAY ==
[2022-05-01 17:30] VITALS: BMI 24.2
== END ==
PROVIDERS: Family Provider Student in an Organized Health Care Education/Training Program; PCP Student in an Organized Health Care Education/Training Program; Visit Provider Specialist
DX: N40.1 Benign prostatic hyperplasia with lower urinary tract symptoms (principal); N13.8 Other obstructive and reflux uropathy; R33.9 Retention of urine, unspecified
CPT/HCPCS: 51798; 81002; 87086

== ENCOUNTER → 2022-06-07 08:43 | Outpatient (CLI) | payer OTHER, SELFPAY ==
[2022-05-01 17:30] VITALS: BMI 24.2
[2022-06-07 09:47] LABS: Cholesterol 175 mg/dL (140-199); HDL Cholesterol 54 mg/dL (40-60); LDL Cholesterol Calculated 105 mg/dL (<100); Triglycerides 80 mg/dL (35-150)
[2022-06-07 10:10] LABS: Prostate Specific Antigen 0.371 ng/mL (0.10-4.00)
== END ==
PROVIDERS: Specialist; Family Provider Student in an Organized Health Care Education/Training Program; PCP Student in an Organized Health Care Education/Training Program; Referring Provider Psychiatry & Neurology Neurology; Visit Provider Psychiatry & Neurology Neurology
DX: E78.5 Hyperlipidemia, unspecified (principal); N13.8 Other obstructive and reflux uropathy; N40.1 Benign prostatic hyperplasia with lower urinary tract symptoms; R97.20 Elevated prostate specific antigen [PSA]
CPT/HCPCS: 36415; 80061; 84153

== ENCOUNTER → 2022-06-15 08:13 | Outpatient (CLI) | payer OTHER, SELFPAY ==
[2022-05-01 17:30] VITALS: BMI 24.2
== END ==
PROVIDERS: Family Provider Student in an Organized Health Care Education/Training Program; PCP Student in an Organized Health Care Education/Training Program; Visit Provider Specialist
DX: C61 Malignant neoplasm of prostate (principal); N13.8 Other obstructive and reflux uropathy; R33.9 Retention of urine, unspecified
CPT/HCPCS: 51798; 81002; 87086

== ENCOUNTER 2022-07-25 08:15 | Outpatient (RCR) | payer OTHER, SELFPAY ==
[2021-08-18 11:04] VITALS: BMI 24.2
--- NOTE | 2022-04-17 12:58 | PT.OIE ---
Current Diagnoses Retention of urine, unspecified (04/17/22) Past Medical History (Last Reviewed 03/27/22 @ 10:40 by Daquan Rai MD) Acid reflux BPH w urinary obs/LUTS Elevated PSA History of COVID-19 Urinary retention Past Surgical History (Last Reviewed 03/27/22 @ 10:40 by Daquan Rai MD) History of laparoscopic cholecystectomy Hx of cholecystectomy Hx of hernia repair Visit Care Team Role Provider Type Natividad Persaud MD Family Provider Non-Staff Primary Care Provider Specialty: Medical Address: [address] [place] [address], [id number] Email: Daquan Rai MD Attending Provider Physician Referring Provider Specialty: Urology Address: [address] [place] [address], [id number] Email: Physical Therapy Initial Evaluation PT-OP-A Visit Information Start: 04/10/22 09:51 Freq: Status: Active Protocol: Document 04/17/22 09:49 AMB (Rec: 04/17/22 10:17 AMB [id number]) Out-Patient Physical Therapy Visit Information Visit Information Visit Type Initial Evaluation Visit Start Time 09:45 Visit Stop Time 10:30 Total Visit Minutes 45 Visit Number 1 PT-OP-B Current Condition Start: 04/10/22 09:51 Freq: Status: Active Protocol: Document 04/17/22 09:49 AMB (Rec: 04/17/22 10:17 AMB [id number]) Current Condition History of Current Condition Onset Date one year Current Complaints upcoming prostate surgery History of Current Condition Wearing a catheter currently for about the last year. Was constantly going to the bathroom before catheter was placed. No leaking history. Is a smoker, works in [employer], walks a lot, lifts a lot. Pepsi drinker and coffee drinker, reports dark urine, bowel movement every other day. Personal Factors Other Personal Factors That May Effect Smoker Therapy/Recovery PT-OP-I Pelvic Floor Start: 04/10/22 09:51 Freq: Status: Active Protocol: Document 04/17/22 09:45 AMB (Rec: 04/17/22 12:44 AMB [id number]) Pelvic Floor Assessment Urine Pelvic Floor Surgery Yes: simple open prostatectomy in Dec Other Urinary Symptoms currently catheterized Bowel Bowel Movement Frequency every other day Comments Pelvic Floor Comments Pt reports he drinks a lot of Pepsi, about 2 cups of coffee. Does report dark urine. Doesn't drink a lot of water. Pt declines biofeedback at this session, did encourage pt to consider if he has leakage after surgery. PT-OP-T Assessment and Plan Start: 04/10/22 09:51 Freq: Status: Active Protocol: Document 04/17/22 09:45 AMB (Rec: 04/17/22 12:57 AMB [id number]) Physical Therapy Assessment Rehab Potential Rehabilitation Potential Good Evaluation Complexity Number of Personal Factors/Comorbidities 3 or More Number of Body Systems Impaired 1-2 Clinical Presentation at Evaluation Stable Goals Pelvic floor strength Short Term Goal (STG) Shay will be independent with a home exercise program for pelvic floor strengthening . STG Duration 6 weeks Skilled Nursing Goal (LTG) Shay will show improved strength by lisa his pelvic floor for at least 10 seconds in standing. LTG Duration 12 weeks Continence Short Term Goal (STG) Shay will move from sit to stand without leaking urine. STG Duration 6 weeks Skilled Nursing Goal (LTG) Shay will walk for 1 mile wihtout leaking urine. LTG Duration 12 weeks Assessment Summary Assessment Shay attends physical therapy with 1 year history of indwelling colmenares catheter and is scheduled for an open prostatectomy on 05/01/22. He declined pelvic floor assessment today, but states he will consider it if he is having leaking after his surgery. He does have multiple factors that make him more likely to have urinary incontinence symptoms post surgery including: current smoker, cola/coffee drinker with self described darker urine, works in [employer] walks about 10 miles a day for work plus lifting, has been catheterized for multiple months. He was instructed in a pelvic floor exercise program, and self reported he though he could hold the contraction for 5 seconds, but was unsure about 10 seconds. Encouraged in exercising 3x/ day and lisa pelvic floor when moving from sit to stand. Pt will benefit from physical therapy to improve his pelvic floor strength to reduce his urinary incontinence post open prostatectomy. Physical Therapy Plan Frequency and Duration Frequency of Treatment 1x/Week Duration of treatment (weeks) 12 Plan of Care Start Date 04/17/22 Plan of Care End Date 07/10/22 Therapeutic Interventions Therapeutic Interventions Home Exercise Program,Manual Therapy,Neuromuscular Re- education,Self-Care/Home Management,Therapeutic Activities,Therapeutic Exercises Modalities Biofeedback,Electric Stimulation Next Visit Focus/Plan Next Note Type Treatment Note Next Visit Plan Reassess pelvic floor strengthening HEP
--- NOTE | 2022-04-17 12:59 | PT.OPPOC ---
Physical, Occupational & Speech Therapy At [facility] Current Diagnoses Retention of urine, unspecified (04/17/22) Visit Care Team Role Provider Type Natividad Persaud MD Family Provider Non-Staff Primary Care Provider Specialty: Medical Address: [address] [place], [address] Email: Daquan Rai MD Attending Provider Physician Referring Provider Specialty: Urology Address: [address] [place] [address], [id number] Email: Plan Of Care PT-OP-T Assessment and Plan Start: 04/10/22 09:51 Freq: Status: Active Protocol: Document 04/17/22 09:45 AMB (Rec: 04/17/22 12:57 AMB [id number]) Physical Therapy Assessment Rehab Potential Rehabilitation Potential Good Evaluation Complexity Number of Personal Factors/Comorbidities 3 or More Number of Body Systems Impaired 1-2 Clinical Presentation at Evaluation Stable Goals Pelvic floor strength Short Term Goal (STG) Shay will be independent with a home exercise program for pelvic floor strengthening . STG Duration 6 weeks Intermediate Goal (LTG) Shay will show improved strength by lisa his pelvic floor for at least 10 seconds in standing. LTG Duration 12 weeks Continence Short Term Goal (STG) Shay will move from sit to stand without leaking urine. STG Duration 6 weeks Intermediate Goal (LTG) Shay will walk for 1 mile wihtout leaking urine. LTG Duration 12 weeks Assessment Summary Assessment Shay attends physical therapy with 1 year history of indwelling colmenares catheter and is scheduled for an open prostatectomy on 05/01/22. He declined pelvic floor assessment today, but states he will consider it if he is having leaking after his surgery. 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 He was instructed in a pelvic floor exercise program, and self reported he though he could hold the contraction for 5 seconds, but was unsure about 10 seconds. Encouraged in exercising 3x/ day and lisa pelvic floor when moving from sit to stand. Pt will benefit from physical therapy to improve his pelvic floor strength to reduce his urinary incontinence post open prostatectomy. Physical Therapy Plan Frequency and Duration Frequency of Treatment 1x/Week Duration of treatment (weeks) 12 Plan of Care Start Date 04/17/22 Plan of Care End Date 07/10/22 Therapeutic Interventions Therapeutic Interventions Home Exercise Program,Manual Therapy,Neuromuscular Re- education,Self-Care/Home Management,Therapeutic Activities,Therapeutic Exercises Modalities Biofeedback,Electric Stimulation Next Visit Focus/Plan Next Note Type Treatment Note Next Visit Plan Reassess pelvic floor strengthening HEP Plan of Care Dates Plan of Care Start Date 04/17/22 Plan of Care End Date 07/10/22 Electronically Signed by: Christina Lyle, PT 04/17/22 7625 If you are in agreement with this Plan of Care, please return a signed and dated copy. I have reviewed this Plan of Care and certify that the skilled therapy services above are required to meet the patient?s needs. Physician Signature Date Printed Name and Credentials Clinical Instructor Signature Printed Name and Credentials
--- NOTE | 2022-04-24 12:34 | PT.OTN ---
Current Diagnoses Retention of urine, unspecified (04/24/22) Physical Therapy Treatment Note PT-OP-A Visit Information Start: 04/10/22 09:51 Freq: Status: Active Protocol: Document 04/24/22 09:11 AMB (Rec: 04/24/22 09:41 AMB [id number]) Out-Patient Physical Therapy Visit Information Visit Information Visit Type Treatment Note Visit Start Time 09:10 Visit Stop Time 09:45 Total Visit Minutes 35 Visit Number 2 PT-OP-B Current Condition Start: 04/10/22 09:51 Freq: Status: Active Protocol: Document 04/17/22 09:49 AMB (Rec: 04/17/22 10:17 AMB [id number]) Current Condition History of Current Condition Onset Date one year Current Complaints upcoming prostate surgery History of Current Condition Wearing a catheter currently for about the last year. Was constantly going to the bathroom before catheter was placed. No leaking history. Is a smoker, works in [employer], walks a lot, lifts a lot. Pepsi drinker and coffee drinker, reports dark urine, bowel movement every other day. Personal Factors Other Personal Factors That May Effect Smoker Therapy/Recovery PT-OP-C Subjective Start: 04/10/22 09:51 Freq: Status: Active Protocol: Document 04/24/22 09:11 AMB (Rec: 04/24/22 09:41 AMB [id number]) OP-PT Subjective Patient Comments Patient Comments Has been noticing more wet farts think it's a medication issue, is going to address with MD. Has been doing his exercises, both sitting and standing. PT-OP-I Pelvic Floor Start: 04/10/22 09:51 Freq: Status: Active Protocol: Document 04/17/22 09:45 AMB (Rec: 04/17/22 12:44 AMB [id number]) Pelvic Floor Assessment Urine Pelvic Floor Surgery Yes: simple open prostatectomy in Dec Other Urinary Symptoms currently catheterized Bowel Bowel Movement Frequency every other day Comments Pelvic Floor Comments Pt reports he drinks a lot of Pepsi, about 2 cups of coffee. Does report dark urine. Doesn't drink a lot of water. Pt declines biofeedback at this session, did encourage pt to consider if he has leakage after surgery. PT-OP-Q Treatments Start: 04/10/22 09:51 Freq: Status: Active Protocol: Document 04/24/22 09:00 AMB (Rec: 04/27/22 12:32 AMB [id number]) Therapeutic Exercises Sitting Exercises long holds Sitting Exercise Name 8 seconds Reps/Minutes 2x10 quick flicks Reps/Minutes 2x20 roll in/roll out Sitting Exercise Name #3 band Reps/Minutes 2x10 ea Comments cues for breath-- long hold, gentle relax sit to stand Comments cues for breath PT-OP-T Assessment and Plan Start: 04/10/22 09:51 Freq: Status: Active Protocol: Document 04/24/22 09:11 AMB (Rec: 04/24/22 09:41 AMB [id number]) Physical Therapy Assessment Goals Pelvic floor strength Short Term Goal (STG) Shay will be independent with a home exercise program for pelvic floor strengthening . STG Duration 6 weeks Fdc Goal (LTG) Shay will show improved strength by lisa his pelvic floor for at least 10 seconds in standing. LTG Duration 12 weeks Continence Short Term Goal (STG) Shay will move from sit to stand without leaking urine. STG Duration 6 weeks Fdc Goal (LTG) Shay will walk for 1 mile wihtout leaking urine. LTG Duration 12 weeks Assessment Summary Assessment Shay is challenged by the long holds. Encouraged in continuing especially with sit to stand and standing long holds due to his employment. Having surgery on 05/01. Continue with HEP and return afterward. Physical Therapy Plan Frequency and Duration Frequency of Treatment 1x/Week Duration of treatment (weeks) 12 Plan of Care Start Date 04/17/22 Plan of Care End Date 07/10/22 Next Visit Focus/Plan Next Note Type Re-Evaluation Next Visit Plan Reassess pelvic floor strengthening HEP
--- NOTE | 2022-05-08 13:01 | PT.OTRE ---
Current Diagnoses Retention of urine, unspecified (05/08/22) Past Medical History (Last Reviewed 05/03/22 @ 07:59 by Daquan Rai MD) Acid reflux Arthritis BPH w urinary obs/LUTS Chronic indwelling Cantu catheter Elevated PSA History of COVID-19 (06/05/21) HLD (hyperlipidemia) Urinary retention Surgical History (Last Updated 04/24/22 @ 13:10 by Precious Monte RN) History of laparoscopic cholecystectomy Hx of hernia repair Visit Care Team Role Provider Type Natividad Persaud MD Family Provider Non-Staff Primary Care Provider Specialty: Medical Address: [facility] [place], [address] Email: Daquan Rai MD Attending Provider Physician Referring Provider Specialty: Urology Address: [address] [place] [address], [id number] Email: Physical Therapy Re-Evaluation PT-OP-A Visit Information Start: 04/10/22 09:51 Freq: Status: Active Protocol: Document 05/08/22 09:56 AMB (Rec: 05/08/22 10:13 AMB [id number]) Out-Patient Physical Therapy Visit Information Visit Information Visit Type Re-Evaluation Visit Note new for after 06/10 needed Visit Start Time 09:45 Visit Stop Time 10:15 Total Visit Minutes 30 Visit Number 3 PT-OP-B Current Condition Start: 04/10/22 09:51 Freq: Status: Active Protocol: Document 04/17/22 09:49 AMB (Rec: 04/17/22 10:17 AMB [id number]) Current Condition History of Current Condition Onset Date one year Current Complaints upcoming prostate surgery History of Current Condition Wearing a catheter currently for about the last year. Was constantly going to the bathroom before catheter was placed. No leaking history. Is a smoker, works in [employer], walks a lot, lifts a lot. Pepsi drinker and coffee drinker, reports dark urine, bowel movement every other day. Personal Factors Other Personal Factors That May Effect Smoker Therapy/Recovery PT-OP-C Subjective Start: 04/10/22 09:51 Freq: Status: Active Protocol: Document 05/08/22 09:56 AMB (Rec: 05/08/22 10:13 AMB [id number]) OP-PT Subjective Patient Comments Patient Comments Passing gas still. Stil catheterized. Pain sounds well managed. Definitely wants a leg. PT-OP-I Pelvic Floor Start: 04/10/22 09:51 Freq: Status: Active Protocol: Document 04/17/22 09:45 AMB (Rec: 04/17/22 12:44 AMB [id number]) Pelvic Floor Assessment Urine Pelvic Floor Surgery Yes: simple open prostatectomy in Dec Other Urinary Symptoms currently catheterized Bowel Bowel Movement Frequency every other day Comments Pelvic Floor Comments Pt reports he drinks a lot of Pepsi, about 2 cups of coffee. Does report dark urine. Doesn't drink a lot of water. Pt declines biofeedback at this session, did encourage pt to consider if he has leakage after surgery. PT-OP-Q Treatments Start: 04/10/22 09:51 Freq: Status: Active Protocol: Document 05/08/22 09:45 AMB (Rec: 05/08/22 12:55 AMB [id number]) Therapeutic Exercises Sitting Exercises long holds Sitting Exercise Name 8 seconds Reps/Minutes 2x10 quick flicks Reps/Minutes 2x20 sit to stand Reps/Minutes 5 Comments cues for breath PT-OP-T Assessment and Plan Start: 04/10/22 09:51 Freq: Status: Active Protocol: Document 05/08/22 09:56 AMB (Rec: 05/08/22 10:13 AMB [id number]) Physical Therapy Assessment Goals Pelvic floor strength Short Term Goal (STG) Shay will be independent with a home exercise program for pelvic floor strengthening . STG Duration 6 weeks Recruiting Assistant Goal (LTG) Shay will show improved strength by lisa his pelvic floor for at least 10 seconds in standing. LTG Duration 12 weeks Continence Short Term Goal (STG) Shay will move from sit to stand without leaking urine. STG Duration 6 weeks Alf Goal (LTG) Shay will walk for 1 mile wihtout leaking urine. LTG Duration 12 weeks Assessment Summary Assessment Shay returns to physical therapy after open simple prostatectomy. Feeling tight and sore with pelvic floor exercises. Catheterized till next . Noticing blood in bag. Reports still not drinking much water. States drinks coffee, pepsi, sometimes koolaid or iced tea. Encouraged in watered down koolaid or iced tea. Pt is planning on returning to work ([employer]) Sunday after catheter removed. Does have depends at home. Difficult to assess pelvic floor function currently as is still catheterized, but encouraged pt in continued exercise. Pt declines internal assessment until after catheter is removed. Physical Therapy Plan Frequency and Duration Frequency of Treatment 1x/Week Duration of treatment (weeks) 12 Plan of Care Start Date 04/17/22 Plan of Care End Date 07/10/22 Therapeutic Interventions Therapeutic Interventions Home Exercise Program,Manual Therapy,Neuromuscular Re- education,Self-Care/Home Management,Therapeutic Activities,Therapeutic Exercises Modalities Biofeedback,Electric Stimulation Next Visit Focus/Plan Next Note Type Treatment Note Next Visit Plan Reassess pelvic floor strengthening HEP
--- NOTE | 2022-05-08 13:01 | PT.OPPOC ---
Physical, Occupational & Speech Therapy At [facility] Current Diagnoses Retention of urine, unspecified (05/08/22) Visit Care Team Role Provider Type Natividad Persaud MD Family Provider Non-Staff Primary Care Provider Specialty: Medical Address: [address] [facility], [place], [address] Email: Daquan Rai MD Attending Provider Physician Referring Provider Specialty: Urology Address: [address] [place] [address], [id number] Email: Plan Of Care PT-OP-T Assessment and Plan Start: 04/10/22 09:51 Freq: Status: Active Protocol: Document 05/08/22 09:56 AMB (Rec: 05/08/22 10:13 AMB [id number]) Physical Therapy Assessment Goals Pelvic floor strength Short Term Goal (STG) Shay will be independent with a home exercise program for pelvic floor strengthening . STG Duration 6 weeks Fdc Goal (LTG) Shay will show improved strength by lisa his pelvic floor for at least 10 seconds in standing. LTG Duration 12 weeks Continence Short Term Goal (STG) Shay will move from sit to stand without leaking urine. STG Duration 6 weeks Planing Machine Operator Goal (LTG) Shay will walk for 1 mile wihtout leaking urine. LTG Duration 12 weeks Assessment Summary Assessment Shay returns to physical therapy after open simple prostatectomy. Feeling tight and sore with pelvic floor exercises. Catheterized till next . Noticing blood in bag. Reports still not drinking much water. States drinks coffee, pepsi, sometimes koolaid or iced tea. Encouraged in watered down koolaid or iced tea. Pt is planning on returning to work ([employer]) Sunday after catheter removed. Does have depends at home. Difficult to assess pelvic floor function currently as is still catheterized, but encouraged pt in continued exercise. Pt declines internal assessment until after catheter is removed. Physical Therapy Plan Frequency and Duration Frequency of Treatment 1x/Week Duration of treatment (weeks) 12 Plan of Care Start Date 04/17/22 Plan of Care End Date 07/10/22 Therapeutic Interventions Therapeutic Interventions Home Exercise Program,Manual Therapy,Neuromuscular Re- education,Self-Care/Home Management,Therapeutic Activities,Therapeutic Exercises Modalities Biofeedback,Electric Stimulation Next Visit Focus/Plan Next Note Type Treatment Note Next Visit Plan Reassess pelvic floor strengthening HEP Plan of Care Plan of Care Start Date 04/17/22 Plan of Care End Date 07/10/22 Electronically Signed by: Christina Lyle, PT 05/08/22 [id number] If you are in agreement with this Plan of Care, please return a signed and dated copy. I have reviewed this Plan of Care and certify that the skilled therapy services above are required to meet the patient?s needs. Physician Signature Date Printed Name and Credentials Clinical Instructor Signature Printed Name and Credentials
--- NOTE | 2022-05-29 09:37 | PT.OTN ---
Current Diagnoses Retention of urine, unspecified (05/29/22) Physical Therapy Treatment Note PT-OP-A Visit Information Start: 04/10/22 09:51 Freq: Status: Active Protocol: Document 05/29/22 09:04 AMB (Rec: 05/29/22 09:36 AMB [id number]) Out-Patient Physical Therapy Visit Information Visit Information Visit Type Treatment Note Visit Note new for after 06/10 needed Visit Start Time 09:00 Visit Stop Time 09:45 Total Visit Minutes 45 Visit Number 4 PT-OP-B Current Condition Start: 04/10/22 09:51 Freq: Status: Active Protocol: Document 04/17/22 09:49 AMB (Rec: 04/17/22 10:17 AMB [id number]) Current Condition History of Current Condition Onset Date one year Current Complaints upcoming prostate surgery History of Current Condition Wearing a catheter currently for about the last year. Was constantly going to the bathroom before catheter was placed. No leaking history. Is a smoker, works in [employer], walks a lot, lifts a lot. Pepsi drinker and coffee drinker, reports dark urine, bowel movement every other day. Personal Factors Other Personal Factors That May Effect Smoker Therapy/Recovery PT-OP-C Subjective Start: 04/10/22 09:51 Freq: Status: Active Protocol: Document 05/29/22 09:04 AMB (Rec: 05/29/22 09:36 AMB [id number]) OP-PT Subjective Patient Comments Patient Comments No longer catheterized, did go back to work on Sunday, took it easy, did need to change out the depends a couple times during hte day. Notices leaks when up and walking around for quite a bit. Voiding every 3-4 hour, getting up usually around 2x/ night. Used 2 depends for a 5 hour shift. PT-OP-I Pelvic Floor Start: 04/10/22 09:51 Freq: Status: Active Protocol: Document 04/17/22 09:45 AMB (Rec: 04/17/22 12:44 AMB [id number]) Pelvic Floor Assessment Urine Pelvic Floor Surgery Yes: simple open prostatectomy in Dec Other Urinary Symptoms currently catheterized Bowel Bowel Movement Frequency every other day Comments Pelvic Floor Comments Pt reports he drinks a lot of Pepsi, about 2 cups of coffee. Does report dark urine. Doesn't drink a lot of water. Pt declines biofeedback at this session, did encourage pt to consider if he has leakage after surgery. PT-OP-Q Treatments Start: 04/10/22 09:51 Freq: Status: Active Protocol: Document 05/29/22 09:04 AMB (Rec: 05/29/22 09:36 AMB [id number]) Therapeutic Exercises Sitting Exercises long holds Sitting Exercise Name 10 seconds Reps/Minutes 2x10 quick flicks Reps/Minutes 2x20 roll in/roll out Sitting Exercise Name #3 band Reps/Minutes 2x10 ea Comments cues for breath-- long hold, gentle relax sit to stand Reps/Minutes 5 Comments cues for breath Standing Exercises lifting Standing Exercise Name 10# from knee height to chest height Reps/Minutes 10 Comments with pelvic floor contraction mini lunges Comments with pelvic floor contraction PT-OP-T Assessment and Plan Start: 04/10/22 09:51 Freq: Status: Active Protocol: Document 05/29/22 09:04 AMB (Rec: 05/29/22 09:36 AMB [id number]) Physical Therapy Assessment Goals Pelvic floor strength Short Term Goal (STG) Shay will be independent with a home exercise program for pelvic floor strengthening . STG Duration 6 weeks Payroll Accounting Manager Goal (LTG) Shay will show improved strength by lisa his pelvic floor for at least 10 seconds in standing. LTG Duration 12 weeks Continence Short Term Goal (STG) Shay will move from sit to stand without leaking urine. STG Duration 6 weeks Payroll Accounting Manager Goal (LTG) Shay will walk for 1 mile wihtout leaking urine. LTG Duration 12 weeks Assessment Summary Assessment Shay returns to physical therapy with good continence during rest but does leak at work when up and walking around during his 5 hour shift . Physical Therapy Plan Frequency and Duration Frequency of Treatment 1x/Week Duration of treatment (weeks) 12 Plan of Care Start Date 04/17/22 Plan of Care End Date 07/10/22 Therapeutic Interventions Therapeutic Interventions Home Exercise Program,Manual Therapy,Neuromuscular Re- education,Self-Care/Home Management,Therapeutic Activities,Therapeutic Exercises Modalities Biofeedback,Electric Stimulation Next Visit Focus/Plan Next Note Type Treatment Note Next Visit Plan Reassess pelvic floor strengthening HEP
--- NOTE | 2022-06-05 09:51 | PT.OTN ---
Current Diagnoses Retention of urine, unspecified (06/05/22) Physical Therapy Treatment Note PT-OP-A Visit Information Start: 04/10/22 09:51 Freq: Status: Active Protocol: Document 06/05/22 09:09 AMB (Rec: 06/05/22 09:49 AMB [id number]) Out-Patient Physical Therapy Visit Information Visit Information Visit Type Treatment Note Visit Note new for after 06/10 needed Visit Start Time 09:00 Visit Stop Time 09:45 Total Visit Minutes 45 Visit Number 5 PT-OP-B Current Condition Start: 04/10/22 09:51 Freq: Status: Active Protocol: Document 04/17/22 09:49 AMB (Rec: 04/17/22 10:17 AMB [id number]) Current Condition History of Current Condition Onset Date one year Current Complaints upcoming prostate surgery History of Current Condition Wearing a catheter currently for about the last year. Was constantly going to the bathroom before catheter was placed. No leaking history. Is a smoker, works in [employer], walks a lot, lifts a lot. Pepsi drinker and coffee drinker, reports dark urine, bowel movement every other day. Personal Factors Other Personal Factors That May Effect Smoker Therapy/Recovery PT-OP-C Subjective Start: 04/10/22 09:51 Freq: Status: Active Protocol: Document 06/05/22 09:09 AMB (Rec: 06/05/22 09:49 AMB [id number]) OP-PT Subjective Patient Comments Patient Comments Still leaking a bit with walking at work. PT-OP-I Pelvic Floor Start: 04/10/22 09:51 Freq: Status: Active Protocol: Document 04/17/22 09:45 AMB (Rec: 04/17/22 12:44 AMB [id number]) Pelvic Floor Assessment Urine Pelvic Floor Surgery Yes: simple open prostatectomy in Dec Other Urinary Symptoms currently catheterized Bowel Bowel Movement Frequency every other day Comments Pelvic Floor Comments Pt reports he drinks a lot of Pepsi, about 2 cups of coffee. Does report dark urine. Doesn't drink a lot of water. Pt declines biofeedback at this session, did encourage pt to consider if he has leakage after surgery. PT-OP-Q Treatments Start: 04/10/22 09:51 Freq: Status: Active Protocol: Document 06/05/22 09:09 AMB (Rec: 06/05/22 09:49 AMB [id number]) Therapeutic Exercises Sitting Exercises long holds Sitting Exercise Name 10 seconds Reps/Minutes 2x10 quick flicks Reps/Minutes 2x20 roll in/roll out Sitting Exercise Name #3 band Reps/Minutes 2x10 ea Comments cues for breath-- long hold, gentle relax sit to stand Reps/Minutes 5 Comments cues for breath Standing Exercises lifting Standing Exercise Name 10# from knee height to chest height Reps/Minutes 10 Comments with pelvic floor contraction mini lunges Standing Exercise Name HEP Reps/Minutes 10x2 Comments with pelvic floor contraction Other Exercises 1 Other Exercise Name quadruped UE flexion Reps/Minutes 10x2 Comments with pelvic floor contraction PT-OP-T Assessment and Plan Start: 04/10/22 09:51 Freq: Status: Active Protocol: Document 06/05/22 09:09 AMB (Rec: 06/05/22 09:49 [facility] [id number]) Physical Therapy Assessment Goals Pelvic floor strength Short Term Goal (STG) Shay will be independent with a home exercise program for pelvic floor strengthening . STG Duration 6 weeks Tufting Creeler Goal (LTG) Shay will show improved strength by lisa his pelvic floor for at least 10 seconds in standing. LTG Duration 12 weeks Continence Short Term Goal (STG) Shay will move from sit to stand without leaking urine. STG Duration MET Tufting Creeler Goal (LTG) Shay will walk for 1 mile wihtout leaking urine. LTG Duration 12 weeks Assessment Summary Assessment Leaking at night with sleeping , gets up 2x/night. Encouraged pt to consider avoiding drinking water right before bed. Pt is using 1-2 Depends during his 5 hour shift. Extended walking is challenging. Physical Therapy Plan Frequency and Duration Frequency of Treatment 1x/Week Duration of treatment (weeks) 12 Plan of Care Start Date 04/17/22 Plan of Care End Date 07/10/22 Therapeutic Interventions Therapeutic Interventions Home Exercise Program,Manual Therapy,Neuromuscular Re- education,Self-Care/Home Management,Therapeutic Activities,Therapeutic Exercises Modalities Biofeedback,Electric Stimulation
--- NOTE | 2022-06-12 09:47 | PT.OTN ---
Current Diagnoses Retention of urine, unspecified (06/12/22) Physical Therapy Treatment Note PT-OP-A Visit Information Start: 04/10/22 09:51 Freq: Status: Active Protocol: Document 06/12/22 09:02 AMB (Rec: 06/12/22 09:46 AMB [id number]) Out-Patient Physical Therapy Visit Information Visit Information Visit Type Treatment Note Visit Start Time 09:00 Visit Stop Time 09:45 Total Visit Minutes 45 Visit Number 6 PT-OP-B Current Condition Start: 04/10/22 09:51 Freq: Status: Active Protocol: Document 04/17/22 09:49 AMB (Rec: 04/17/22 10:17 AMB [id number]) Current Condition History of Current Condition Onset Date one year Current Complaints upcoming prostate surgery History of Current Condition Wearing a catheter currently for about the last year. Was constantly going to the bathroom before catheter was placed. No leaking history. Is a smoker, works in [employer], walks a lot, lifts a lot. Pepsi drinker and coffee drinker, reports dark urine, bowel movement every other day. Personal Factors Other Personal Factors That May Effect Smoker Therapy/Recovery PT-OP-C Subjective Start: 04/10/22 09:51 Freq: Status: Active Protocol: Document 06/12/22 09:02 AMB (Rec: 06/12/22 09:46 AMB [id number]) OP-PT Subjective Patient Comments Patient Comments Working 8 hour shifts, sometimes needs to change every 4 hours, but sometimes can go 8 hours. Does get up at one time a night, does have some leaks at night. PT-OP-I Pelvic Floor Start: 04/10/22 09:51 Freq: Status: Active Protocol: Document 04/17/22 09:45 AMB (Rec: 04/17/22 12:44 AMB [id number]) Pelvic Floor Assessment Urine Pelvic Floor Surgery Yes: simple open prostatectomy in Dec Other Urinary Symptoms currently catheterized Bowel Bowel Movement Frequency every other day Comments Pelvic Floor Comments Pt reports he drinks a lot of Pepsi, about 2 cups of coffee. Does report dark urine. Doesn't drink a lot of water. Pt declines biofeedback at this session, did encourage pt to consider if he has leakage after surgery. PT-OP-Q Treatments Start: 04/10/22 09:51 Freq: Status: Active Protocol: Document 06/12/22 09:02 AMB (Rec: 06/12/22 09:46 AMB [id number]) Therapeutic Exercises Supine Exercises bridge Supine Exercise Name with cues for breath/pelvic floor Reps/Minutes 10 Sitting Exercises long holds Sitting Exercise Name 10 seconds Reps/Minutes 2x10 quick flicks Reps/Minutes 2x20 roll in/roll out Sitting Exercise Name #3 band Reps/Minutes 2x10 ea Comments cues for breath-- long hold, gentle relax sit to stand Reps/Minutes 5 Comments cues for breath Standing Exercises lifting Standing Exercise Name 10# from knee height to chest height Reps/Minutes 10 Comments with pelvic floor contraction Other Exercises 1 Other Exercise Name quadruped UE flexion Reps/Minutes 10x2 Comments challenged by PT-OP-T Assessment and Plan Start: 04/10/22 09:51 Freq: Status: Active Protocol: Document 06/12/22 09:02 AMB (Rec: 06/12/22 09:46 AMB [id number]) Physical Therapy Assessment Goals Pelvic floor strength Short Term Goal (STG) Shay will be independent with a home exercise program for pelvic floor strengthening . STG Duration 6 weeks Radio Program Checker Goal (LTG) Shay will show improved strength by lisa his pelvic floor for at least 10 seconds in standing. LTG Duration 12 weeks Continence Short Term Goal (STG) Shay will move from sit to stand without leaking urine. STG Duration MET Shelter Goal (LTG) Shay will walk for 1 mile wihtout leaking urine. LTG Duration 12 weeks Assessment Summary Assessment Shay has improved to getting up once at night. Pt continues to use 1-2 depends during work, but back up to an 8 hour shift. Tolerating exercises well. Physical Therapy Plan Frequency and Duration Frequency of Treatment 1x/Week Duration of treatment (weeks) 12 Plan of Care Start Date 04/17/22 Plan of Care End Date 07/10/22 Therapeutic Interventions Therapeutic Interventions Home Exercise Program,Manual Therapy,Neuromuscular Re- education,Self-Care/Home Management,Therapeutic Activities,Therapeutic Exercises Modalities Biofeedback,Electric Stimulation Next Visit Focus/Plan Next Note Type Treatment Note Next Visit Plan Reassess pelvic floor strengthening HEP
--- NOTE | 2022-07-25 08:56 | PT.OTN ---
Current Diagnoses Retention of urine, unspecified (07/25/22) Physical Therapy Treatment Note PT-OP-A Visit Information Start: 04/10/22 09:51 Freq: Status: Active Protocol: Document 07/25/22 08:23 AMB (Rec: 07/25/22 08:37 AMB [id number]) Out-Patient Physical Therapy Visit Information Visit Information Visit Type Progress Note Visit Start Time 08:15 Visit Stop Time 09:00 Total Visit Minutes 45 Visit Number 7 PT-OP-B Current Condition Start: 04/10/22 09:51 Freq: Status: Active Protocol: Document 04/17/22 09:49 AMB (Rec: 04/17/22 10:17 AMB [id number]) Current Condition History of Current Condition Onset Date one year Current Complaints upcoming prostate surgery History of Current Condition Wearing a catheter currently for about the last year. Was constantly going to the bathroom before catheter was placed. No leaking history. Is a smoker, works in [employer], walks a lot, lifts a lot. Pepsi drinker and coffee drinker, reports dark urine, bowel movement every other day. Personal Factors Other Personal Factors That May Effect Smoker Therapy/Recovery PT-OP-C Subjective Start: 04/10/22 09:51 Freq: Status: Active Protocol: Document 07/25/22 08:23 AMB (Rec: 07/25/22 08:37 AMB [id number]) OP-PT Subjective Patient Comments Patient Comments Working 8 hour shifts, using one Depends at work, nothing at home. PT-OP-I Pelvic Floor Start: 04/10/22 09:51 Freq: Status: Active Protocol: Document 04/17/22 09:45 AMB (Rec: 04/17/22 12:44 AMB [id number]) Pelvic Floor Assessment Urine Pelvic Floor Surgery Yes: simple open prostatectomy in Dec Other Urinary Symptoms currently catheterized Bowel Bowel Movement Frequency every other day Comments Pelvic Floor Comments Pt reports he drinks a lot of Pepsi, about 2 cups of coffee. Does report dark urine. Doesn't drink a lot of water. Pt declines biofeedback at this session, did encourage pt to consider if he has leakage after surgery. PT-OP-Q Treatments Start: 04/10/22 09:51 Freq: Status: Active Protocol: Document 07/25/22 08:23 AMB (Rec: 07/25/22 08:37 AMB [id number]) Therapeutic Exercises Sitting Exercises long holds Sitting Exercise Name 10 seconds Reps/Minutes 2x10 quick flicks Reps/Minutes 2x20 sit to stand Reps/Minutes 5 Comments cues for breath PT-OP-T Assessment and Plan Start: 04/10/22 09:51 Freq: Status: Active Protocol: Document 07/25/22 08:23 AMB (Rec: 07/25/22 08:37 AMB [id number]) Physical Therapy Assessment Goals Pelvic floor strength Short Term Goal (STG) Shay will be independent with a home exercise program for pelvic floor strengthening . STG Duration MET Gun Perforator Loader Goal (LTG) Shay will show improved strength by lisa his pelvic floor for at least 10 seconds in standing. LTG Duration MET Continence Short Term Goal (STG) Shay will move from sit to stand without leaking urine. STG Duration MET Gun Perforator Loader Goal (LTG) Shay will walk for 1 mile wihtout leaking urine. LTG Duration MET Assessment Summary Assessment Shay has improved getting up once at night, using 1 depends at work. Is drinking 2L of water at work, knows he should be drinking more. 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 Physical Therapy Plan Frequency and Duration Frequency of Treatment 1x/Week Duration of treatment (weeks) 1 Plan of Care Start Date 07/25/22 Plan of Care End Date 08/01/22 Therapeutic Interventions Therapeutic Interventions Home Exercise Program,Manual Therapy,Neuromuscular Re- education,Self-Care/Home Management,Therapeutic Activities,Therapeutic Exercises Modalities Biofeedback,Electric Stimulation Next Visit Focus/Plan Next Note Type Treatment Note Next Visit Plan Reassess pelvic floor strengthening HEP
--- NOTE | 2022-07-25 08:56 | PT.OPPOC ---
Physical, Occupational & Speech Therapy At [facility] Current Diagnoses Retention of urine, unspecified (07/25/22) Visit Care Team Role Provider Type Natividad Persaud MD Family Provider Non-Staff Primary Care Provider Specialty: Medical Address: [address] [place], [address] Email: Daquan Rai MD Attending Provider Physician Referring Provider Specialty: Urology Address: [address] [place] [address], [id number] Email: Plan Of Care PT-OP-T Assessment and Plan Start: 04/10/22 09:51 Freq: Status: Active Protocol: Document 07/25/22 08:23 AMB (Rec: 07/25/22 08:37 AMB [id number]) Physical Therapy Assessment Goals Pelvic floor strength Short Term Goal (STG) Shay will be independent with a home exercise program for pelvic floor strengthening . STG Duration MET Underground Mine Machinery Mechanic Goal (LTG) Shay will show improved strength by lisa his pelvic floor for at least 10 seconds in standing. LTG Duration MET Continence Short Term Goal (STG) Shay will move from sit to stand without leaking urine. STG Duration MET Residential Goal (LTG) Shay will walk for 1 mile wihtout leaking urine. LTG Duration MET Assessment Summary Assessment Shay has improved getting up once at night, using 1 depends at work. Is drinking 2L of water at work, knows he should be drinking more. 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 Physical Therapy Plan Frequency and Duration Frequency of Treatment 1x/Week Duration of treatment (weeks) 1 Plan of Care Start Date 07/25/22 Plan of Care End Date 08/01/22 Therapeutic Interventions Therapeutic Interventions Home Exercise Program,Manual Therapy,Neuromuscular Re- education,Self-Care/Home Management,Therapeutic Activities,Therapeutic Exercises Modalities Biofeedback,Electric Stimulation Next Visit Focus/Plan Next Note Type Treatment Note Next Visit Plan Reassess pelvic floor strengthening HEP Plan of Care Dates Plan of Care Start Date 07/25/22 Plan of Care End Date 08/01/22 Electronically Signed by: Christina Lyle, PT 07/25/22 0856 If you are in agreement with this Plan of Care, please return a signed and dated copy. I have reviewed this Plan of Care and certify that the skilled therapy services above are required to meet the patient?s needs. Physician Signature Date Printed Name and Credentials Clinical Instructor Signature Printed Name and Credentials
== END 2022-07-27 10:15 | disposition home or self-care (01) ==
LOC: PHYS 08:15
PROVIDERS: Family Provider Student in an Organized Health Care Education/Training Program; PCP Student in an Organized Health Care Education/Training Program; Referring Provider Specialist; Visit Provider Specialist
DX: R33.9 Retention of urine, unspecified (principal)
CPT/HCPCS: 97110; 97161; 97164

== ENCOUNTER → 2022-12-05 08:25 | Outpatient (CLI) | payer MEDICARE, OTHER, SELFPAY ==
[2022-05-01 17:30] VITALS: BMI 24.2
[2022-12-05 11:22] LABS: Prostate Specific Antigen 0.228 ng/mL (0.10-4.00)
== END ==
PROVIDERS: Family Provider Student in an Organized Health Care Education/Training Program; PCP Physician Assistant; Referring Provider Specialist; Visit Provider Specialist
DX: R97.20 Elevated prostate specific antigen [PSA] (principal)
CPT/HCPCS: 36415; 84153

== ENCOUNTER → 2024-10-27 07:49 | Outpatient (CLI) | payer MEDICARE, OTHER, SELFPAY ==
[2022-05-01 17:30] VITALS: BMI 24.2
== END ==
PROVIDERS: Family Provider Student in an Organized Health Care Education/Training Program; PCP Nurse Practitioner; Referring Provider Urology; Visit Provider Urology
DX: R97.20 Elevated prostate specific antigen [PSA] (principal)
CPT/HCPCS: 36415; 84153

== ENCOUNTER → 2025-05-04 09:22 | Outpatient (CLI) | payer MEDICARE, OTHER, SELFPAY ==
[2022-05-01 17:30] VITALS: BMI 24.2
[2025-05-04 12:30] LABS: Prostate Specific Antigen 1.24 ng/mL (0.10-4.00)
== END ==
PROVIDERS: PCP Nurse Practitioner; Referring Provider Urology; Visit Provider Urology
DX: C61 Malignant neoplasm of prostate (principal); N40.1 Benign prostatic hyperplasia with lower urinary tract symptoms; N13.8 Other obstructive and reflux uropathy
CPT/HCPCS: 36415; 84153